=== PATIENT | male | born 1945 | race Caucasian/White ===

== ENCOUNTER 2017-02-17 15:33 | Observation (INO) | payer OTHER, MEDICARE ==
[~2017-02-17] VITALS: Ht 190.5 cm; Wt 108.3 kg
--- NOTE | 2017-02-17 15:40 | Cardiology Progress Note ---
Cardiology Progress Note Date of Service Feb 17, 2017. Cardiology Progress Note Case had been discussed with Samantha ROBLES of our practice by telephone who had seen the patient in routine cardiology follow-up at the [facility] clinic today. Patient presented with finding of atrial fibrillation with rapid ventricular rate between 135 150 beats per minute. An EKG was performed on at 1:41 p.m. at [facility] and was reviewed independently by the undersigned via remote connection revealing atrial fibrillation at 135 beats per minute with nonspecific ST abnormality. The patient is on chronic anticoagulation with Coumadin and his INR today 02/17/2017 as an outpatient was therapeutic at 3.6. He has had therapeutic INR measurements in in December, , December,, in October, as well as September,. PLAN: [facility]. I will see the patient tomorrow morning. I am going to tentatively placed orders to keep the patient NPO after midnight and I am going to consult anesthesia for planned direct current cardioversion on 02/18/2017. Since this is an add on case, we are working to fit the patient into the schedule, and this may be an afternoon case, but either way the patient will need to be NPO for 8 hours, and therefore will be made NPO after midnight.
[2017-02-17] MEDS ORDERED: DILTIAZEM HCL 5 MG/ML 5 ML VIAL IV STA (15:46)
[2017-02-17] MEDS ORDERED: SODIUM CHLORIDE 0.9% 500ML 500 ML IV STA (15:46)
--- NOTE | 2017-02-17 15:52 | EMERGENCY ROOM VISIT NOTE ---
History Report prepared by Terra: Jaciel Jacome Under the Supervision of: Dr. Azar Quinones D.O. First contact with patient: 15:38 Chief Complaint: IRREGULAR HEARTBEAT Stated Complaint: AFIB - REFERRED BY History of Present Illness The patient is a 71 year old male who presents to the Emergency Room with complaints of persistent irregular heart rhythm that started earlier today. The patient has a history of atrial fibrillation, but he is normally in normal sinus rhythm. He takes diltiazem and Coumadin, and he did not miss his diltiazem this morning. The patient was found to be in atrial fibrillation when he had a regular check up today. He denies dizziness, lightheadedness, chest pain, or shortness of breath. 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 The patient has been hospitalized for A-fib with RVR before. He denies any recent illness or nausea, vomiting, and diarrhea. He has been constipated recently. Source of History: patient Onset: today Position: other (heart) Quality: other (irregular rhythm) Timing: other (persistent) Associated Symptoms: No SOB, No chest pain, No diarrhea, No nausea, No vomiting Review of Systems See HPI for pertinent positives & negatives. A total of 10 systems reviewed and were otherwise negative. Past Medical & Surgical Medical Problems: (1) Atrial fibrillation with RVR (2) Constipation (3) Dyslipidemia (4) GERD (gastroesophageal reflux disease) (5) HTN (hypertension) (6) custodial (current) use of anticoagulants (7) PAF (paroxysmal atrial fibrillation) Surgical Problems: (1) H/O hernia repair Family History No pertinent family history Social History Smoking Status: Never Smoker Occupation Status: retired Current/Historical Medications Scheduled Aspirin (Aspirin Ec), 81 MG PO QAM Diltiazem Hcl Ext Rel (Tiazac), 240 MG PO QAM Enalapril (Vasotec), 20 MG PO BID Metoprolol Tartrate (Lopressor), 25 MG PO BID Multiple Vitamins W/ Minerals (Centrum Silver), 1 TAB PO QAM Omeprazole (Prilosec), 20 MG PO DAILY Simvastatin (Zocor), 20 MG PO QAM Warfarin Sod (Jantoven), 7.5 MG PO MoFr Warfarin Sod (Jantoven), 5 MG PO 5XWK Allergies Coded Allergies: Penicillins (Unverified Allergy, Unknown, RASH, 02/17/17) Physical Exam Vital Signs Date Time Temp Pulse Resp B/P Pulse Ox O2 Delivery O2 Flow Rate FiO2 02/17/17 18:19 97 18 133/97 96 Room Air 02/17/17 16:52 88 20 124/84 95 Room Air 02/17/17 15:45 Room Air 02/17/17 15:40 Room Air 02/17/17 15:35 36.7 124 18 162/91 95 Room Air Physical Exam GENERAL: Patient is awake, alert, and in no acute distress. Patient is resting comfortably and showing no signs of anxiety EYES: The conjunctivae are clear. The pupils are round and reactive. EARS, NOSE, MOUTH AND THROAT: The nose is without any evidence of any deformity. Mucous membranes are dry tongue is midline NECK: The neck is nontender and supple. RESPIRATORY: Normal respiratory effort is noted there is no evidence of wheezing rhonchi or rales CARDIOVASCULAR: Heart sounds were tachycardic and irregular, no definite murmur was noted to auscultation. GASTROINTESTINAL: The abdomen is soft. Bowel sounds are present in all quadrants. Abdomen is nontender MUSCULOSKELETAL/EXTREMITIES: There is no evidence of gross deformity full range of motion is noted in the hips and shoulders SKIN: There is no obvious evidence of any rash. There are no petechiae, pallor or cyanosis noted. Pedal edema was noted bilaterally. NEUROLOGIC: Patient is awake alert and oriented x3, Medical Decision & Procedures ER Provider Diagnostic Interpretation: Radiology results as stated below per my review and radiologist interpretation: SINGLE VIEW CHEST CLINICAL HISTORY: Palpitations. FINDINGS: An AP, portable, upright chest radiograph is obtained. No prior studies are available for comparison at the time of dictation. The examination is degraded by portable technique and patient rotation. The heart is enlarged and there is atherosclerotic calcification of the thoracic aorta. The pulmonary vasculature is noncongested. Scattered calcified granulomas are observed. The lungs and pleural spaces are otherwise clear. No pneumothorax is seen. The skeletal structures are osteopenic. The bony thorax is grossly intact. IMPRESSION: Cardiomegaly with no acute cardiopulmonary abnormality. Electronically signed by: Dwayne Stewart M.D. 02/17/2017 3:58 PM Dictated Date/Time: 02/17/2017 3:57 PM Laboratory Results Test 02/17/17 15:45 02/17/17 17:05 Immature Granulocyte % (Auto) 0.2 % White Blood Count 6.25 K/uL (4.8-10.8) Red Blood Count 4.57 M/uL (4.7-6.1) Hemoglobin 15.0 g/dL (14.0-18.0) Hematocrit 43.6 % (42-52) Mean Corpuscular Volume 95.4 fL (80-100) Mean Corpuscular Hemoglobin 32.8 pg (25-34) Mean Corpuscular Hemoglobin Concent 34.4 g/dl (32-36) Platelet Count 175 K/uL (130-400) Mean Platelet Volume 10.7 fL (7.4-10.4) Neutrophils (%) (Auto) 63.6 % Lymphocytes (%) (Auto) 20.5 % Monocytes (%) (Auto) 13.8 % Eosinophils (%) (Auto) 1.4 % Basophils (%) (Auto) 0.5 % Neutrophils # (Auto) 3.98 K/uL (1.4-6.5) Lymphocytes # (Auto) 1.28 K/uL (1.2-3.4) Monocytes # (Auto) 0.86 K/uL (0.11-0.59) Eosinophils # (Auto) 0.09 K/uL (0-0.5) Basophils # (Auto) 0.03 K/uL (0-0.2) Immature Granulocyte # (Auto) 0.01 K/uL (0.00-0.02) Activated Partial Thromboplast Time 37.9 SECONDS (21.0-31.0) Partial Thromboplastin Ratio 1.5 Total Bilirubin 0.5 mg/dl (0.2-1) Direct Bilirubin 0.1 mg/dl (0-0.2) Aspartate Amino Transf (AST/SGOT) 18 U/L (15-37) Alanine Aminotransferase (ALT/SGPT) 21 U/L (12-78) Alkaline Phosphatase 66 U/L (45-117) Total Creatine Kinase 121 U/L (39-308) Creatine Kinase MB 2.0 ng/ml (0.5-3.6) Creatine Kinase MB Ratio 1.7 (0-3.0) Troponin I < 0.015 ng/ml (0-0.045) Total Protein 7.0 gm/dl (6.4-8.2) Albumin 3.9 gm/dl (3.4-5.0) Lipase 163 U/L (73-393) Thyroid Stimulating Hormone (TSH) 2.510 uIu/ml (0.300-4.500) Free Thyroxine 1.21 ng/dl (0.80-1.60) Urine Color YELLOW Urine Appearance CLEAR (CLEAR) Urine pH 5.5 (4.5-7.5) Urine Specific [place] 1.012 (1.000-1.030) Urine Protein NEG (NEG) Urine Glucose (UA) NEG (NEG) Urine Ketones TRACE (NEG) Urine Occult Blood NEG (NEG) Urine Nitrite NEG (NEG) Urine Bilirubin NEG (NEG) Urine Urobilinogen NEG (NEG) Urine Leukocyte Esterase TRACE (NEG) Urine WBC (Auto) 1-5 /hpf (0-5) Urine RBC (Auto) 0-4 /hpf (0-4) Urine Hyaline Casts (Auto) 0 /lpf (0-5) Urine Epithelial Cells (Auto) 5-10 /lpf (0-5) Urine Bacteria (Auto) NEG (NEG) Laboratory results per my review. Medications Administered Medications (Trade) Dose Ordered Sig/Linda Route Start Time Stop Time Status Last Admin Dose Admin Sodium Chloride (Nss 500ml) 500 ml @ 999 mls/hr Q31M STAT IV 02/17/17 15:46 02/17/17 16:16 DC 02/17/17 16:01 999 MLS/HR Diltiazem HCl (Cardizem Inj) 20 mg NOW STAT IV 02/17/17 15:46 02/17/17 15:48 DC 02/17/17 16:00 20 MG ECG Indication: other (h/o A-fib) Rate (beats per minute): 127 Rhythm: atrial fibrillation (with RVR) Findings: ST depression (diffuse), other (no PVC) Comparison ECG Date: no prior available ED Course 1541: The patient was evaluated in room B10. A complete history and physical examination were performed. 1546: Cardizem 20 mg IV, NSS 500 ml @ 999 mls/hr. 1625: The patient's pulse rate has come down. 1715: Discussed the case with Dr. Alejo, [facility] Card[facility]. He is aware. 1720: Updated the patient. 1724: [facility] The patient will be evaluated. Medical Decision Prior records/ancillary studies reviewed. Triage Nursing notes reviewed. Additional history obtained from son. The patient's history was concerning for palpitations. Differential diagnosis: Etiologies such as premature contractions, electrolyte abnormality, cardiac dysrhythmia, thyroid dysfunction, pulmonary embolism, infection, gastrointestinal, as well as others were entertained. The patient is a 71-year-old male who presented to the emergency department for an evaluation of palpitations. The patient was found be in rapid atrial fibrillation. He has a history of paroxysmal atrial fibrillation. He is currently taking medications for rate control as well as anticoagulation. His Coumadin level was found to be therapeutic. 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 The patient was agreeable to this plan. I discussed his case with the on-call [facility] hospital[facility]. They've agreed to evaluate the patient in the emergency department for further management and disposition. The patient was given IV fluids and IV Cardizem in the emergency department. His rate was much better and his symptoms had improved. Consults Time Called: 1710 Consulting Physician: [facility]. Returned Call: [phone]: Discussed the case with [facility]. He is aware. Additional Consults: Time Called: 1710 Consulted Phys[facility] Returned Call: [phone] Additional Comments: 1724: Discussed the case [facility] The patient will be evaluated. Impression Primary Impression: Atrial fibrillation with RVR Additional Impression: Palpitations Scribe Attestation The scribe's documentation has been prepared under my direction and personally reviewed by me in its entirety. I confirm that the note above accurately reflects all work, treatment, procedures, and medical decision making performed by me. Departure Information Dispostion Being Evaluated By Hospitalist Prescriptions Metoprolol Tartrate (LOPRESSOR) 25 Mg Tab 25 MG PO BID for 30 Days, #60 TAB Prov: Andreia Chinchilla MD 02/18/17 Referrals No Doctor, Assigned (PCP) Patient Instructions My [facility] Problem Qualifiers
--- NOTE | 2017-02-17 16:00 | DIAGNOSTIC IMAGING REPORT ---
SINGLE VIEW CHEST CLINICAL HISTORY: Palpitations. FINDINGS: An AP, portable, upright chest radiograph is obtained. No prior studies are available for comparison at the time of dictation. The examination is degraded by portable technique and patient rotation. The heart is enlarged and there is atherosclerotic calcification of the thoracic aorta. The pulmonary vasculature is noncongested. Scattered calcified granulomas are observed. The lungs and pleural spaces are otherwise clear. No pneumothorax is seen. The skeletal structures are osteopenic. The bony thorax is grossly intact. IMPRESSION: Cardiomegaly with no acute cardiopulmonary abnormality. Electronically signed by: Dwayne Stewart M.D. 02/17/2017 3:58 PM Dictated Date/Time: 02/17/2017 3:57 PM
[2017-02-17 16:07] LABS: BASO % 0.5 %; BASO ABS # 0.03 K/uL (0-0.2); COMPLETE YES; EOS % 1.4 %; HEMATOCRIT 43.6 % (42-52); IG% 0.2 %; LYMPH % 20.5 %; LYMPH ABS # 1.28 K/uL (1.2-3.4); MEAN CELL VOLUME 95.4 fL (80-100); MEAN CORPUSCULAR HEMOGLOBIN 32.8 pg (25-34); MEAN CORPUSCULAR HGB CONC 34.4 g/dl (32-36); MEAN PLATELET VOLUME 10.7 fL (7.4-10.4); MONO % 13.8 %; NEUT % 63.6 %; PLATELET COUNT 175 K/uL (130-400); RED BLOOD COUNT 4.57 M/uL (4.7-6.1); WHITE BLOOD COUNT 6.25 K/uL (4.8-10.8)
[2017-02-17 16:24] LABS: INR 3.2 (0.9-1.1); PARTIAL THROMBOPLASTIN RATIO 1.5; PROTHROMBIN TIME (PATIENT) 36.4 SECONDS (9.0-12.0)
[2017-02-17 16:32] LABS: ALT/SGPT 21 U/L (12-78); BLOOD UREA NITROGEN 11 mg/dl (7-18); BUN/CREATININE RATIO 10.8 (10-20); CARBON DIOXIDE 29 mmol/L (21-32); CHLORIDE 108 mmol/L (98-107); CREATININE 0.97 mg/dl (0.60-1.40); GLUCOSE 106 mg/dl (70-99); MAGNESIUM 2.4 mg/dl (1.8-2.4); POTASSIUM 3.8 mmol/L (3.5-5.1); SODIUM 143 mmol/L (136-145)
[2017-02-17 16:39] LABS: CALCIUM 9.2 mg/dl (8.5-10.1)
[2017-02-17] MEDS ORDERED: SIMV20TA2 PO (16:39)
[2017-02-17] MEDS ORDERED: PRLSR20 PO (16:39)
[2017-02-17] MEDS ORDERED: WARF5TAB7 PO ×2 (16:39)
[2017-02-17] MEDS ORDERED: ASPI81TA28 PO (16:39)
[2017-02-17] MEDS ORDERED: DILT-115 PO (16:39)
[2017-02-17] MEDS ORDERED: ENAL10TA88 PO (16:39)
[2017-02-17] MEDS ORDERED: MULTCHW PO (16:39)
[2017-02-17 17:07] LABS: ALKALINE PHOSPHATASE 66 U/L (45-117); AST/SGOT 18 U/L (15-37); CKMB/CK RATIO 1.7 (0-3.0)
[2017-02-17 17:29] LABS: URINE APPEARANCE CLEAR (CLEAR); URINE BILIRUBIN NEG (NEG); URINE COLOR YELLOW; URINE NITRITE NEG (NEG); URINE PH 5.5 (4.5-7.5); URINE SPECIFIC GRAVITY 1.012 (1.000-1.030); UROBILINOGEN NEG (NEG)
[2017-02-17 17:35] LABS: MANUAL MICROSCOPIC REQUIRED? NO; REVIEW REQ? NO
[2017-02-17] MEDS ORDERED: ACETAMINOPHEN 325 MG TAB PO PRN (18:30)
[2017-02-17] MEDS ORDERED: POLYETHYLENE (MIRALAX) 17 GM PACK PO PRN (18:30)
[2017-02-17] MEDS ORDERED: ONDANSETRON INJ 2 MG/ML 2 ML VIAL IV PRN (18:30)
[2017-02-17] MEDS ORDERED: NITROGLYCERIN 0.4 MG SL PER TAB CHARGE SL PRN (18:30)
--- NOTE | 2017-02-17 18:59 | History and Physical ---
History & Physical Date & Time of Service: Feb 17, 2017 at 18:42 Chief Complaint: Afib - Referred By Primary Care Physician: Jakob Ramos M.D. History of Present Illness Source: patient Mr. Ojeda is a 71 year old man with paroxysmal atrial fibrillation on long-term coumadin who presents to the ER today for atrial fibrillation with RVR. Earlier today he went to his Cardiology office for a routine visit, with his last visit in Jul 2016. He was toherwise feeling well and denied chest pain, shortness of breath, fatigue or other complaints. He was found to have a HR in the 140-160s and an EKG confirmed the above rhythm with HR 135. He was driven to the ER by a family member and here an EKG again revealed afib w RVR with a rate of [address] changes. He was given Cardizem 20mg IV which brought his HR down to the 70s. He remained asymptomatic and denies feeling poorly in the past week including no chest pain, trouble breathing, malaise, fevers, chills, intolerance of PO, nausea, vomiting, diarrhea, headache, sore throat, congestion or other cold symptoms, no UTI symptoms, no weight gain or swelling, and no blood per rectum. He reports being able to ambulate well without an assistive device. He lives alone and does well by himself--manages medications well, etc. His son is an ER nurse at this hospital and is present at the bedside today. The plan was discussed with he and the patient and all questions were answered to their satisfaction. Past Medical/Surgical History Medical Problems: (1) Atrial fibrillation with RVR Status: Resolved (2) Constipation Status: Chronic (3) Dyslipidemia Status: Chronic (4) GERD (gastroesophageal reflux disease) Status: Chronic (5) HTN (hypertension) Status: Chronic (6) snf (current) use of anticoagulants Status: Chronic (7) PAF (paroxysmal atrial fibrillation) Status: Chronic Family History No pertinent family history Social History Smoking Status: Former Smoker (pipe) Smokeless Tobacco Use: No Alcohol Use: occasionally Drug Use: none Marital Status: single Housing status: lives alone Occupational Status: retired Immunizations History of Influenza Vaccine: Yes Influenza Vaccine Date: Aug 25, 2016 History of Tetanus Vaccine?: Unknown History of Pneumococcal: Yes Pneumococcal Date: Nov 27, 2015 History of Hepatitis B Vaccine: No Multi-Drug Resistant Organisms History of MDRO: No Allergies Coded Allergies: Penicillins (Unverified Allergy, Unknown, RASH, 02/17/17) Home Medications Scheduled Aspirin (Aspirin Ec), 81 MG PO QAM Diltiazem Hcl Ext Rel (Tiazac), 240 MG PO QAM Enalapril (Vasotec), 20 MG PO BID Multiple Vitamins W/ Minerals (Centrum Silver), 1 TAB PO QAM Omeprazole (Prilosec), 20 MG PO DAILY Simvastatin (Zocor), 20 MG PO QAM Warfarin Sod (Jantoven), 7.5 MG PO MoFr Warfarin Sod (Jantoven), 5 MG PO [id number] Review of Systems All systems were reviewed and negative except as indicated in HPI above. Physical Exam Vital Signs Date Time Temp Pulse Resp B/P Pulse Ox O2 Delivery O2 Flow Rate FiO2 02/17/17 18:19 97 18 133/97 96 Room Air 02/17/17 16:52 88 20 124/84 95 Room Air 02/17/17 15:45 Room Air 02/17/17 15:40 Room Air 02/17/17 15:35 36.7 124 18 162/91 95 Room Air GEN: WNWD, in no acute distress, alert and appropriate HEENT: NC/AT, PERRL, normal sclerae, pharynx non-acute, mucous membranes are moist CARDIO: reg rate, irregular rhythm, S1/2 heard without m/g/r, 2+ radial pulses bilaterally LUNGS: CTA bilaterally, no crackles, rales or wheezes, good diaphragmatic excursion ABD: soft, non-tender, non-distended, no rebound or guarding, +BS EXTREMITY: no LE swelling or edema, extremities are warm and well-perfused NEURO: CN 2-12 grossly intact, sensation intact throughout, no gross focal deficits MUSC: moves all extremities equally, no focal deficits. SKIN: warm and dry Diagnostics Laboratory Results Results Past 24 Hours Test 02/17/17 15:45 02/17/17 17:05 Range/Units White Blood Count 6.25 4.8-10.8 K/uL Red Blood Count 4.57 4.7-6.1 M/uL Hemoglobin 15.0 14.0-18.0 g/dL Hematocrit 43.6 42-52 % Mean Corpuscular Volume 95.4 80-100 fL Mean Corpuscular Hemoglobin 32.8 25-34 pg Mean Corpuscular Hemoglobin Concent 34.4 32-36 g/dl Platelet Count 175 130-400 K/uL Mean Platelet Volume 10.7 7.4-10.4 fL Neutrophils (%) (Auto) 63.6 % Lymphocytes (%) (Auto) 20.5 % Monocytes (%) (Auto) 13.8 % Eosinophils (%) (Auto) 1.4 % Basophils (%) (Auto) 0.5 % Neutrophils # (Auto) 3.98 1.4-6.5 K/uL Lymphocytes # (Auto) 1.28 1.2-3.4 K/uL Monocytes # (Auto) 0.86 0.11-0.59 K/uL Eosinophils # (Auto) 0.09 0-0.5 K/uL Basophils # (Auto) 0.03 0-0.2 K/uL RDW Standard Deviation 47.3 36.4-46.3 fL RDW Coefficient of Variation 13.6 11.5-14.5 % Immature Granulocyte % (Auto) 0.2 % Immature Granulocyte # (Auto) 0.01 0.00-0.02 K/uL Prothrombin Time 36.4 9.0-12.0 SECONDS Prothromb Time International Ratio 3.2 0.9-1.1 Activated Partial Thromboplast Time 37.9 21.0-31.0 SECONDS Partial Thromboplastin Ratio 1.5 Sodium Level 143 136-145 mmol/L Potassium Level 3.8 3.5-5.1 mmol/L Chloride Level 108 98-107 mmol/L Carbon Dioxide Level 29 21-32 mmol/L Anion Gap 6.0 3-11 mmol/L Blood Urea Nitrogen 11 7-18 mg/dl Creatinine 0.97 0.60-1.40 mg/dl Est Creatinine Clear Calc Drug Dose 90.6 ml/min Estimated GFR () 89.4 Estimated GFR (Non- 77.1 BUN/Creatinine Ratio 10.8 10-20 Random Glucose 106 70-99 mg/dl Calcium Level 9.2 8.5-10.1 mg/dl Magnesium Level 2.4 1.8-2.4 mg/dl Total Bilirubin 0.5 0.2-1 mg/dl Direct Bilirubin 0.1 0-0.2 mg/dl Aspartate Amino Transf (AST/SGOT) 18 15-37 U/L Alanine Aminotransferase (ALT/SGPT) 21 12-78 U/L Alkaline Phosphatase 66 45-117 U/L Total Creatine Kinase 121 39-308 U/L Creatine Kinase MB 2.0 0.5-3.6 ng/ml Creatine Kinase MB Ratio 1.7 0-3.0 Troponin I < 0.015 0-0.045 ng/ml Total Protein 7.0 6.4-8.2 gm/dl Albumin 3.9 3.4-5.0 gm/dl Lipase 163 73-393 U/L Thyroid Stimulating Hormone (TSH) 2.510 0.300-4.500 uIu/ml Free Thyroxine 1.21 0.80-1.60 ng/dl Urine Color YELLOW Urine Appearance CLEAR CLEAR Urine pH 5.5 4.5-7.5 Urine Specific [place] 1.012 1.000-1.030 Urine Protein NEG NEG Urine Glucose (UA) NEG NEG Urine Ketones TRACE NEG Urine Occult Blood NEG NEG Urine Nitrite NEG NEG Urine Bilirubin NEG NEG Urine Urobilinogen NEG NEG Urine Leukocyte Esterase TRACE NEG Urine WBC (Auto) 1-5 0-5 /hpf Urine RBC (Auto) 0-4 0-4 /hpf Urine Hyaline Casts (Auto) 0 0-5 /lpf Urine Epithelial Cells (Auto) 5-10 0-5 /lpf Urine Bacteria (Auto) NEG NEG Diagnostic Radiology CLINICAL HISTORY: Palpitations. FINDINGS: An AP, portable, upright chest radiograph is obtained. No prior studies are available for comparison at the time of dictation. The examination is degraded by portable technique and patient rotation. The heart is enlarged and there is atherosclerotic calcification of the thoracic aorta. The pulmonary vasculature is noncongested. Scattered calcified granulomas are observed. The lungs and pleural spaces are otherwise clear. No pneumothorax is seen. The skeletal structures are osteopenic. The bony thorax is grossly intact. IMPRESSION: Cardiomegaly with no acute cardiopulmonary abnormality. EKG Atrial fibrillation with RVR 127, no ST changes. Impression Assessment and Plan 71 yo M presents with asymptomatic atrial fibrillation with RVR 1. Atrial fibrillation with RVR-no clear etiology at this time. TSH is WNL, trop normal, EKG non-ischemic and no h/o CAD, no hypoxia or risk factors for PE and is therapeutic on coumadin, no recent infectious symptoms, electrolytes within normal limits. Rate was controlled with diltiazem push. Cardiology plan is for DCCV in am. NPO p MN. Trending enzymes to ensure no ACS, however, patient is completely asymptomatic. Monitor on tele overnight. 2. HTN-controlled, cont home meds includinglisinopril BID and Cardizen PO 3. HLP-cont Zocor 4. GERD-cont PPI DVT proph-therapeutic on coumadin Dispo-to telemetry floor Full Code DO [facility] Hospitalist Level of Care Telemetry Resuscitation Status FULL RESUSCITATION VTE Prophylaxis VTE Risk Assessment Done? Y/N: Yes Risk Level: Moderate Given or contraindicated: Warfarin (Coumadin)
[2017-02-17 19:57] VITALS: BP 145/97; PULSE 84; TEMP 36.5; O2SAT 98; Ht 190.5 cm; Wt 108.3 kg
[2017-02-17] MEDS ORDERED: IV FLUIDS COMPLETED PRN (20:00)
[2017-02-17] MEDS ORDERED: PNEUMOCOCCAL ADMINISTRATION CHARGE ONE (20:30)
[2017-02-17] MEDS ORDERED: PNEUMOCOCCAL POLYSACCHARIDES 25 MCG/0.5 ML VIAL/SYR IM. ONE (20:30)
[2017-02-17] MEDS: ENALAPRIL MALEATE 10 MG TAB PO SCH (20:51)
[2017-02-17 21:51] VITALS: BP 122/92; PULSE 86; TEMP 36.8; O2SAT 96
[2017-02-17 23:13] VITALS: BP 141/83; PULSE 87; TEMP 36.3; O2SAT 98
[2017-02-17 23:59] VITALS: O2SAT 98
[2017-02-18] VITALS (8 sets, daily range): BP systolic 107–149; BP diastolic 79–93; PULSE 69–120; TEMP 36.4–37; O2SAT 93–100
[2017-02-18 06:04] LABS: HEMATOCRIT 40.6 % (42-52); MEAN CELL VOLUME 95.8 fL (80-100); MEAN CORPUSCULAR HEMOGLOBIN 31.8 pg (25-34); MEAN CORPUSCULAR HGB CONC 33.3 g/dl (32-36); MEAN PLATELET VOLUME 10.8 fL (7.4-10.4); PLATELET COUNT 166 K/uL (130-400); RED BLOOD COUNT 4.24 M/uL (4.7-6.1); WHITE BLOOD COUNT 4.77 K/uL (4.8-10.8)
[2017-02-18 06:10] LABS: INR 2.8 (0.9-1.1)
[2017-02-18 06:39] LABS: BUN/CREATININE RATIO 10.7 (10-20); CALCIUM 8.5 mg/dl (8.5-10.1); CREATININE 0.76 mg/dl (0.60-1.40); MAGNESIUM 2.4 mg/dl (1.8-2.4); POTASSIUM 3.9 mmol/L (3.5-5.1)
[2017-02-18 06:42] LABS: CHOLESTEROL/HDL RATIO 2.5
[2017-02-18] MEDS: ENALAPRIL MALEATE 10 MG TAB PO SCH (08:46)
--- NOTE | 2017-02-18 08:53 | Cardiology Consultation ---
Cardiology Consultation Date of Consultation: Feb 18, 2017 History of Present Illness Robert Ojeda is a 71 year old male seen in cardiology consult per the request of Dr Martins for managment of atrial fibrillation with rapid ventricular rate. The patient's primary information security officer is Dr. Alejo of our practice. The patient has a past history of paroxysmal atrial fibrillation for which she is on oral diltiazem and Coumadin as an outpatient. His only definite episode of atrial fibrillation took place in 2012 when he was hospitalized at [facility]. Based on what the patient recollects and on his outpatient chart and appears seated spontaneous he converted back to sinus rhythm on AV bethel blockers at that time and did not meet direct-current cardioversion. He is been maintained on Coumadin for anticoagulation and his INR has been stable with monthly lab work performed for the last several months revealing INRs that are above the goal of 2. Yesterday he presented as an outpatient for routine cardiology follow-up and he is noted to be tachycardic on vital signs. He had no definite subjective symptoms however his heart rate was between 140 and 160 on physical exam and EKG confirmed the presence of atrial fibrillation with rapid ventricular rate of 135 bpm. The patient was subsequently referred to the emergency department. He received 20 mg of IV diltiazem which transiently improved his ventricular rate, however it is noted that overnight last night with minimal activity such as walking and going to the bathroom his heart rates had increased to the 160- 170 beat per minute range. I saw and examined the patient after his transthoracic echocardiogram in the cardial pulmonary unit and he was in no acute distress. He remains in atrial fibrillation with only mild elevation in the ventricular rate at rest. His international normalized ratio was 3.6 as an outpatient yesterday and is still within the therapeutic range today. History PAST MEDICAL HISTORY: 1. Persistent atrial fibrillation 2. GERD 3. Hypertension 4. Dyslipidemia PAST SURGICAL HISTORY: 1. Colonoscopy performed 2013 2. Tonsillectomy as a child 3. Inguinal hernia repair as a child FAMILY HISTORY: His parents both in their 80s, no definite history of ischemic heart disease known. SOCIAL HISTORY: He is . 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 He is . Review Of Systems See above for pertinent positives & negatives. A total of 10 systems reviewed and were otherwise negative. Allergies Coded Allergies: Penicillins (Unverified Allergy, Unknown, RASH, 02/17/17) Medications Reported Home Medications Medications Dose Route/Sig Max Daily Dose Days Date Category Dose Instructions Jantoven (Warfarin Sodium) 5 Mg Tab 5 Mg PO 5XWK 02/17/17 Reported Take 5mg every , , Th, Sa, Lowery Jantoven (Warfarin Sodium) 5 Mg Tab 7.5 Mg PO MOFR 02/17/17 Reported Take 7.5mg every Mon and Fri Zocor (Simvastatin) 20 Mg Tab 20 Mg PO QAM 02/17/17 Reported Tiazac (Diltiazem HCl) 240 Mg Capcr 240 Mg PO QAM 02/17/17 Reported Vasotec (Enalapril Maleate) 10 Mg Tab 20 Mg PO BID 02/17/17 Reported Aspirin Ec (Aspirin) 81 Mg Tab 81 Mg PO QAM 02/17/17 Reported Centrum Silver (Multiple Vitamins W/ Minerals) 1 Chw Chw 1 Tab PO QAM 02/17/17 Reported Prilosec (Omeprazole) 20 Mg Capcr 20 Mg PO DAILY 02/17/17 Reported Physical Exam Vital Signs (Last 8hrs): Last 8 Hrs Date Time Temp Pulse Resp B/P Pulse Ox O2 Delivery O2 Flow Rate FiO2 02/18/17 07:39 37.0 104 20 149/81 93 Room Air 02/18/17 04:00 Room Air 02/18/17 03:57 36.8 86 16 122/92 96 Room Air 02/18/17 03:35 74 20 135/85 97 Room Air General Appearance: Alert and Oriented x3. NAD. Head: Normocephalic Atraumatic. Eyes: PERRLA, EOMI, conjunctiva and sclera clear Neck: Supple. No carotid bruits noted. No JVD. No HJD. Respiratory: Breath sounds clear to auscultation bilaterally. No w/r/r. Cardiovascular: Irregular rhythm, no murmurs Abdomen: Normal bowel sounds, soft nontender. no abdominal bruits. Extremities: No edema, no clubbing or cyanosis. distal pulses 2/4 bilaterally. Neuro: No focal deficits. Psychiatric: Normal affect. Data Last Resulted 02/18/17 05:16 Last Resulted 02/18/17 05:16 Past 24 Hours Test 02/17/17 15:45 02/18/17 05:16 Range/Units Creatine Kinase MB 2.0 0.5-3.6 ng/ml Creatine Kinase MB Ratio 1.7 0-3.0 Prothromb Time International Ratio 3.2 H 2.8 H 0.9-1.1 Prothrombin Time 36.4 H 31.0 H 9.0-12.0 SECONDS Total Creatine Kinase 121 39-308 U/L Troponin I < 0.015 0-0.045 ng/ml EKG performed this morning 02/18/17 and reviewed independently revealed atrial fibrillation at 89 bpm with no significant ST changes. Compared to the day before, the rate is much better controlled. Telemetry reviewed: Atrial fibrillation noted, rate was rapid at times, no bradycardia Assessment & Plan Impression: 71-year-old male 1. Atrial fibrillation with rapid ventricular rate 2. Hypertension, relatively well controlled 3. History dyslipidemia Discussion/recommendations: The patient states that he has no subjective symptoms, I'm very concerned that if his tachycardia persists, he will develop a tachycardia induced cardiomyopathy. His difficult to determine the chronicity of atrial fibrillation given his lack of symptoms. However he has been compliant with Coumadin without missing any recent doses and his international normalized ratios have been within the therapeutic range for several months dating back some therefore he should be protected against stroke. I reviewed his outpatient record. His single echocardiogram on file dates back to [facility] in 2012 at which time normal LVEF was described with moderate left atrial enlargement. A repeat echocardiogram has been performed at [facility], this is just been completed and will be reviewed. Sinuses echocardiographic findings are stable, plan to proceed with direct-current cardioversion this afternoon and the patient was agreeable to this. Karis Dillard DO
[2017-02-18] MEDS ORDERED: SIMVASTATIN 20 MG TAB PO SCH (09:00)
[2017-02-18] MEDS ORDERED: ASPIRIN 81 MG ECTAB PO SCH (09:00)
[2017-02-18] MEDS ORDERED: PANTOprazole SOD 40 MG TAB PO SCH (09:00)
[2017-02-18] MEDS ORDERED: DILTIAZEM HCL 120 MG EXT REL CAP PO SCH (09:00)
--- NOTE | 2017-02-18 09:26 | ECHOCARDIOGRAM REPORT ---
*NOTICE TO RECEIVING [employer] AGENCY This information is strictly Confidential and protected under [place] law. [place] law prohibits you from making any further disclosure of this information unless further disclosure is expressly permitted by the written consent of the person to whom it pertains or is authorized by law. A general authorization for the release of medical or other information is not sufficient for this purpose. Hospital accepts no responsibility if the information is made available to any other person, INCLUDING THE PATIENT. Interpretation Summary * Name: WINSOME APONTE Study Date: 02/18/2017 07:41 AM BP: 149/81 mmHg * Patient Location: C.2T\S\S229\S\2 HR: 104 * : 1945 (M/d/yyyy) Gender: Male Height: 75 in * Age: 71 yrs Ethnicity: CA Weight: 241 lb * Ordering Physician: Collins Dillard * Referring Physician: Samantha Suarez PA-C * Performed By: Minda Badillo RDCS * * Reason For Study: Atrial fibrillation * BSA: 2.4 m2 * -- Conclusions -- * Atrial fibrillation with mildly elevated ventricular rate is present on the echocardiogram study. * The left ventricular wall motion is normal. * The LV Ejection Fraction = 55-60%. * The left atrium is moderately dilated. * There is moderate mitral annular calcification. * Aortic valve sclerosis moderate, without significant aortic valvular stenosis. * Trace aortic regurgitation. * There is mild tricuspid regurgitation. Procedure Details * A complete two-dimensional transthoracic echocardiogram was performed (2D, M-mode, Doppler and color flow Doppler). Left Ventricle * The left ventricle is normal in size. * There is normal left ventricular wall thickness. * The basal septum is thickened and angulated consistent with sigmoid septum. * Left ventricular systolic function is normal. * Ejection Fraction = 55-60%. * The left ventricular wall motion is normal. Right Ventricle * The right ventricle is normal in size and function. Atria * The left atrium is moderately dilated. * Right atrial size is normal. * There is no evidence of atrial septal defect, but resolution does not allow assessment for a patent foramen ovale. Mitral Valve * There is moderate mitral annular calcification. * There is no mitral valve stenosis. * Significant mitral regurgitation is absent. Tricuspid Valve * The tricuspid valve is normal. * There is no tricuspid stenosis. * There is mild tricuspid regurgitation. * Doppler findings do not suggest pulmonary hypertension. Aortic Valve * The aortic valve is trileaflet. * Aortic valve sclerosis moderate, without significant aortic valvular stenosis. * Aortic stenosis is absent. * Trace aortic regurgitation. Pulmonic Valve * The pulmonary valve is not well seen, but the Doppler examination is normal without significant regurgitation or stenosis. Great Vessels * The aortic root and proximal ascending aorta are normal sized. Pericardium/Pleural * There is no pericardial effusion. Great Vessels * Normal inferior vena cava diameter and respiratory variation suggests normal central venous pressure. MMode 2D Measurements and Calculations Ao root diam 3.1 cm Ao root area 7.6 cm\S\2 ACS 0.92 cm asc Aorta Diam 3.4 cm LVOT diam 2.0 cm LVOT area 3.1 cm\S\2 Doppler Measurements and Calculations MV E max kings 105.6 cm/sec MV dec time 0.24 sec Ao V2 max 154.7 cm/sec Ao max PG 9.6 mmHg Ao max PG (full) 6.2 mmHg FEDERICO(V,A) 1.8 cm\S\2 FEDERICO(V,D) 1.8 cm\S\2 LV V1 max PG 3.4 mmHg LV V1 max 92.3 cm/sec PA V2 max 80.1 cm/sec PA max PG 2.6 mmHg PA acc slope 326.1 cm/sec\S\2 PA acc time 0.16 sec PI max kings 171.0 cm/sec PI max PG 11.7 mmHg PI dec slope 235.2 cm/sec\S\2 PI P1/2t 213.0 msec TR max kings 187.3 cm/sec PA pr(Accel) 6.1 mmHg
[2017-02-18] MEDS ORDERED: PROPOFOL IV EMULSION 10 MG/ML 20 ML VIAL IV ONE (09:41)
--- NOTE | 2017-02-18 10:04 | Cardiology Procedure Brief Nt ---
Preliminary Cardiology Note Procedure Date Feb 18, 2017. Pre-Procedure Diagnosis atrial fibrillation, RVR Post-Procedure Diagnosis successful conversion to SR Procedure(s) Performed DCCV, sedation provided by anesthesia Yield Improvement Engineer Karis Dillard DO Retail Merchandising Specialist(s) none Estimated Blood Loss none Preliminary Findings Converted to SR with one dose of 200 J of biphasic energy. Recommendations Continue diltiazem and coumadin. Specimens none Anesthesia Propofol 70 mg Complication(s) None Disposition PCU
[2017-02-18] MEDS ORDERED: METOPROLOL TARTRATE 25 MG TAB PO ONE (10:08)
--- NOTE | 2017-02-18 10:31 | CARDIOVERSION ---
DATE OF OPERATION: 02/18/2017 PROCEDURE DATE: 02/18/2017. PREPROCEDURE DIAGNOSIS: Atrial fibrillation with rapid ventricular rate. POSTOPERATIVE DIAGNOSIS: Successful conversion to sinus rhythm. PROCEDURE PERFORMED: Synchronized direct current cardioversion, sedation provided by the anesthesia team. HIGH SCHOOL VICE PRINCIPAL: Dr. Collins Dillard DO. ASSISTANTS: None. PRELIMINARY FINDINGS: After informed consent was obtained and time out was performed the patient was sedated with the assistance of anesthesia receiving a total of 70 mg of propofol in divided doses. The patient then underwent synchronized cardioversion receiving 200 joules of biphasic energy x1 dose with successful conversion from atrial fibrillation at 120 beats per minute to sinus rhythm at 70 beats per minute. Post procedure EKG confirmed sinus rhythm with normal ST segments. RECOMMENDATIONS: Continue oral Diltiazem and Coumadin. COMPLICATIONS: None. DISPOSITION: Transfer to PCU for ongoing care and patient will be reassessed later today. I attest to the content of the Intraoperative Record and any orders documented therein. Any exceptions are noted below. MTDD
[2017-02-18] MEDS ORDERED: LPR25 PO (11:30)
--- NOTE | 2017-02-18 11:32 | Discharge Instructions ---
Discharge Instructions Date of Service Feb 18, 2017. Admission Reason for Admission: Afib - Referred By Discharge Discharge Diagnosis / Problem: Atrial fibrillation status post cardioversion Discharge Goals Goal(s): Improve disease control, Therapeutic intervention Activity Recommendations Activity Limitations: resume your previous activity . Instructions / Follow-Up Instructions / Follow-Up Please follow up with Cardiology Samantha Suarez on February 25 at 2:45pm. Metoprolol is a new medication started for heart rate control. Please start this prescription this evening as you received a dose this morning in the hospital. Current Hospital Diet Patient's current hospital diet: AHA Diet (Heart Healthy) Discharge Diet Recommended Diet: AHA Diet (Heart Healthy) Pending Studies Studies pending at discharge: no Laboratory Results Lipid Panel Test 02/18/17 05:16 Range/Units Triglycerides Level 63 0-150 mg/dl Cholesterol Level 125 0-200 mg/dl HDL Cholesterol 50 mg/dl Cholesterol/HDL Ratio 2.5 LDL Cholesterol, Calculated 62 mg/dl Medical Emergencies . Who to Call and When: Medical Emergencies: If at any time you feel your situation is an emergency, please call 911 immediately. . Non-Emergent Contact Non-Emergency issues call your: Primary Care Provider . . "Provider Documentation" section prepared by Andreia Waller. . VTE Core Measure Inpt VTE Proph given/why not?: Warfarin (Coumadin)
--- NOTE | 2017-02-18 11:34 | Cardiology Progress Note ---
Cardiology Progress Note Date of Service Feb 18, 2017. Cardiology Progress Note The patient was reassessed post direct-current cardioversion. He remains in sinus rhythm. He has received his a.m. dose of diltiazem 240 mg by mouth today , and has just received his first dose of metoprolol tartrate 25 mg. Plan: Stable for discharge later this afternoon after he completes his lunch. Continue home Coumadin routine. With anticoagulation chronic follow-up. Continue chronic dose of diltiazem CD 240 mg daily. At metoprolol tartrate 25 mg twice a day. Outpatient follow-up with Dr. Alejo in 2-4 weeks. Karis Dillard DO
--- NOTE | 2017-02-18 12:33 | Anesthesiology Progress Note ---
Anesthesia Post Op Note Date & Time Feb 18, 2017 at 12:32 Vital Signs Pain Intensity: 0 Vital Signs Past 12 Hours Date Time Temp Pulse Resp B/P Pulse Ox O2 Delivery O2 Flow Rate FiO2 02/18/17 11:15 69 131/87 02/18/17 10:45 80 141/79 02/18/17 10:30 36.4 77 16 142/93 99 Room Air 4.0 78 02/18/17 10:15 78 16 131/82 99 Room Air 02/18/17 10:10 88 16 127/84 99 Room Air 02/18/17 10:05 79 16 127/84 99 Room Air 02/18/17 10:00 80 16 122/80 99 Room Air 02/18/17 09:55 82 16 117/76 99 Room Air 02/18/17 09:52 81 16 107/81 96 Nasal Cannula 4 02/18/17 09:50 120 16 126/79 100 Nasal Cannula 6 02/18/17 08:00 Room Air 02/18/17 07:39 37.0 104 20 149/81 93 Room Air 02/18/17 04:00 Room Air 02/18/17 03:57 36.8 86 16 122/92 96 Room Air 02/18/17 03:35 74 20 135/85 97 Room Air Notes Mental Status: alert / awake / arousable, participated in evaluation Pt Amnestic to Procedure: Yes Nausea / Vomiting: adequately controlled Pain: adequately controlled Airway Patency, RR, SpO2: stable & adequate BP & HR: stable & adequate Hydration State: stable & adequate Anesthetic Complications: no major complications apparent
[2017-02-18] MEDS ORDERED: WARFARIN SOD 7.5 MG TAB PO SCH (16:00)
--- NOTE | 2017-02-18 17:11 | Discharge Summary ---
Discharge Summary Date of Service Feb 18, 2017. Discharge Summary Admission Date: Feb 17, 2017 at 18:34 Discharge Date: Feb 18, 2017 Discharge Disposition: Home Principal Diagnosis: Atrial fibrillation s/p cardioversion Procedures: Cardioversion Consultations: Cardiology Medication Reconciliation New Medications: Metoprolol Tartrate (Lopressor) 25 Mg Tab 25 MG PO BID for 30 Days, #60 TAB Continued Medications: Aspirin (Aspirin Ec) 81 Mg Tab 81 MG PO QAM Diltiazem Hcl Ext Rel (Tiazac) 240 Mg Capcr 240 MG PO QAM, CAP Enalapril (Vasotec) 10 Mg Tab 20 MG PO BID, TAB Multiple Vitamins W/ Minerals (Centrum Silver) 1 Chw Chw 1 TAB PO QAM Omeprazole (Prilosec) 20 Mg Capcr 20 MG PO DAILY, CAP Simvastatin (Zocor) 20 Mg Tab 20 MG PO QAM, TAB Warfarin Sod (Jantoven) 5 Mg Tab 7.5 MG PO MoFr, TAB Take 7.5mg every Mon and Fri Warfarin Sod (Jantoven) 5 Mg Tab 5 MG PO 5XWK, TAB Take 5mg every , , , Sa, Lowery Admission Information HPI (per Admitting provider): Mr. Ojeda is a 71 year old man with paroxysmal atrial fibrillation on long-term coumadin who presents to the ER today for atrial fibrillation with RVR. Earlier today he went to his Cardiology office for a routine visit, with his last visit in Jul 2016. He was toherwise feeling well and denied chest pain, shortness of breath, fatigue or other complaints. He was found to have a HR in the 140-160s and an EKG confirmed the above rhythm with HR 135. He was driven to the ER by a family member and here an EKG again revealed afib w RVR with a rate of [address] changes. He was given Cardizem 20mg IV which brought his HR down to the 70s. He remained asymptomatic and denies feeling poorly in the past week including no chest pain, trouble breathing, malaise, fevers, chills, intolerance of PO, nausea, vomiting, diarrhea, headache, sore throat, congestion or other cold symptoms, no UTI symptoms, no weight gain or swelling, and no blood per rectum. He reports being able to ambulate well without an assistive device. He lives alone and does well by himself--manages medications well, etc. His son is an ER nurse at this hospital and is present at the bedside today. The plan was discussed with he and the patient and all questions were answered to their satisfaction. Physical Exam (per Admitting): GEN: WNWD, in no acute distress, alert and appropriate HEENT: NC/AT, PERRL, normal sclerae, pharynx non-acute, mucous membranes are moist CARDIO: reg rate, irregular rhythm, S1/2 heard without m/g/r, 2+ radial pulses bilaterally LUNGS: CTA bilaterally, no crackles, rales or wheezes, good diaphragmatic excursion ABD: soft, non-tender, non-distended, no rebound or guarding, +BS EXTREMITY: no LE swelling or edema, extremities are warm and well-perfused NEURO: CN 2-12 grossly intact, sensation intact throughout, no gross focal deficits MUSC: moves all extremities equally, no focal deficits. SKIN: warm and dry Hospital Course Patient was admitted with atrial fibrillation with planned cardioversion. Cardiology was consulted. Patient underwent successful cardioversion. Patient was continued on his home medications, with the addition of metoprolol. Patient deemed stable for discharge with Cardiology follow up. PE on discharge: General- awake; alert; NAD Eyes- EOMI; no scleral icterus Neck- no stridor; trachea midline Lungs- CTA bilaterally; no wheezes/crackles Heart- RRR; no m/r/g Abdomen- soft; NTND; nBS Back- no gross abnormalities Extremities- no c/c/e; no deformity Neuro- no focal deficits Skin- no appreciable rash or bruise . Total time spent on discharge = This includes examination of the patient, discharge planning, medication reconciliation, and communication with other providers. Discharge Instructions Discharge Instructions Date of Service Feb 18, 2017. Admission Reason for Admission: Afib - Referred By Discharge Discharge Diagnosis / Problem: Atrial fibrillation status post cardioversion Discharge Goals Goal(s): Improve disease control, Therapeutic intervention Activity Recommendations Activity Limitations: resume your previous activity . Instructions / Follow-Up Instructions / Follow-Up Please follow up with Cardiology Samantha Suarez on February 25 at 2:45pm. Metoprolol is a new medication started for heart rate control. Please start this prescription this evening as you received a dose this morning in the hospital. Current Hospital Diet Patient's current hospital diet: AHA Diet (Heart Healthy) Discharge Diet Recommended Diet: AHA Diet (Heart Healthy) Pending Studies Studies pending at discharge: no Laboratory Results Lipid Panel Test 02/18/17 05:16 Range/Units Triglycerides Level 63 0-150 mg/dl Cholesterol Level 125 0-200 mg/dl HDL Cholesterol 50 mg/dl Cholesterol/HDL Ratio 2.5 LDL Cholesterol, Calculated 62 mg/dl Medical Emergencies . Who to Call and When: Medical Emergencies: If at any time you feel your situation is an emergency, please call 911 immediately. . Non-Emergent Contact Non-Emergency issues call your: Primary Care Provider . . "Provider Documentation" section prepared by Andreia Waller. . VTE Core Measure Inpt VTE Proph given/why not?: Warfarin (Coumadin) Additional Copies To Samantha Suarez PA-C
[2017-02-18] MEDS ORDERED: METOPROLOL TARTRATE 25 MG TAB PO SCH (21:00)
[2017-02-19] MEDS ORDERED: WARFARIN SOD 5 MG TAB PO SCH (16:00)
== END 2017-02-18 12:10 | disposition home or self-care (01) ==
LOC: ENRESERVTM → ENRESERVDT → C.EDB 15:34 → C.2T 18:34
PROVIDERS: ADMIT Hospitalist; ATTEND Internal Medicine
DX: I48.91 Unspecified atrial fibrillation (principal); I10 Essential (primary) hypertension; E78.5 Hyperlipidemia, unspecified; K21.9 Gastro-esophageal reflux disease without esophagitis; Z79.82 Long term (current) use of aspirin; Z79.01 Long term (current) use of anticoagulants; Z87.891 Personal history of nicotine dependence; Z88.0 Allergy status to penicillin; Z90.89 Acquired absence of other organs; Z98.890 Other specified postprocedural states

== ENCOUNTER 2017-12-05 20:23 | Observation (INO) | payer OTHER, MEDICARE ==
[~2017-12-05] VITALS: Ht 190.5 cm; Wt 106.2 kg
[~2017-12-05 20:23] MED LIST: ASPI81TA28 PO; DILT-115 PO; ENAL10TA88 PO; LPR25 PO; MULTCHW PO; PRLSR20 PO; SIMV20TA2 PO; WARF5TAB7 PO
[2017-12-05] MEDS ORDERED: SODIUM CHLORIDE 0.9% 1000ML 500 ML IV ONE (21:08)
[2017-12-05 21:23] LABS: HEMATOCRIT 45.3 % (42-52); HEMOGLOBIN 15.6 g/dL (14.0-18.0); MEAN CELL VOLUME 97.8 fL (80-100); MEAN CORPUSCULAR HEMOGLOBIN 33.7 pg (25-34); MEAN CORPUSCULAR HGB CONC 34.4 g/dl (32-36); MEAN PLATELET VOLUME 11.3 fL (7.4-10.4); PLATELET COUNT 181 K/uL (130-400); RED CELL DISTRIBUTION WIDTH CV 13.9 % (11.5-14.5); RED CELL DISTRIBUTION WIDTH SD 49.6 fL (36.4-46.3); WHITE BLOOD COUNT 7.48 K/uL (4.8-10.8)
[2017-12-05 21:42] LABS: BLOOD UREA NITROGEN 16 mg/dl (7-18); CALCIUM 9.1 mg/dl (8.5-10.1); CARBON DIOXIDE 27 mmol/L (21-32); CREATININE 1.14 mg/dl (0.60-1.40); GLUCOSE 144 mg/dl (70-99); POTASSIUM 3.8 mmol/L (3.5-5.1); SODIUM 138 mmol/L (136-145)
[2017-12-05] MEDS ORDERED: KETOROLAC TROMETHAMINE 30 MG/ML VIAL IV STA (22:42)
[2017-12-05] MEDS ORDERED: LEVOFLOXACIN 250 MG TAB PO STA (23:44)
[2017-12-05] MEDS ORDERED: CEFTRIAXONE SOD INJ 1 GM ADDVIAL IV STA (23:44)
[2017-12-05 23:47] LABS: INR 1.9 (0.9-1.1)
[2017-12-06] VITALS (8 sets, daily range): BP systolic 124–186; BP diastolic 66–92; PULSE 62–72; TEMP 36.6–37.1; O2SAT 94–97; Ht 190.5 cm; Wt 106.2 kg
[2017-12-06] MEDS ORDERED: METO-720 PO (00:48)
[2017-12-06] MEDS ORDERED: CRD200 PO (00:50)
[2017-12-06] MEDS ORDERED: PRLSR20 PO (00:51)
[2017-12-06] MEDS ORDERED: TRAMADOL HCL 50 MG TAB PO PRN (01:45)
[2017-12-06] MEDS ORDERED: PROCHLORPERAZINE INJ 5 MG in SYRINGE 4 ML IV PRN (01:45)
[2017-12-06] MEDS ORDERED: ACETAMINOPHEN 325 MG TAB PO PRN (01:45)
[2017-12-06] MEDS ORDERED: DOCUSATE SODIUM 100 MG CAP PO ONE (01:52)
[2017-12-06 02:08] LABS: ALBUMIN 3.8 gm/dl (3.4-5.0); ALKALINE PHOSPHATASE 88 U/L (45-117); ALT/SGPT 30 U/L (12-78); AST/SGOT 28 U/L (15-37); TOTAL PROTEIN 7.8 gm/dl (6.4-8.2)
[2017-12-06] MEDS ORDERED: NSS + 20MEQ KCL 1000ML 1,000 ML IV ONE (02:15)
[2017-12-06] MEDS ORDERED: PATIENT'S HEIGHT AND/OR WEIGHT NEEDED SCH (02:15)
--- NOTE | 2017-12-06 02:59 | EMERGENCY ROOM VISIT NOTE ---
History Report prepared by Terra: Estiven Acuna Under the Supervision of: Dr. Vimal Neville D.O. First contact with patient: 22:33 Chief Complaint: HEMATURIA Stated Complaint: ABD PAIN Nursing Triage Summary: Patient with lower abdominal pain and Hematuria starting this afternoon. patient states urine continues to leak out , white underwear had blood tinged urine on them. History of Present Illness The patient is a 72 year old male who presents to the Emergency Room with complaints of stabbing kidney pain that began 12 hours ago. Per the son, the patient was in a car for 5 hours and was dribbling out urine without completely voiding the entire day. He states the patient has stabbing pain in his lower back, lower abdominal pain, and groin pain that is rated as 9/10. He denies nausea. The patient's son states that there is blood in the urine. The patient has a history of Afib and is currently taking Warfarin. The patient denies a history of kidney stones. Source of History: patient, family Onset: prior to arrival Position: back Symptom Intensity: severity rated as 9/10 Quality: stabbing Timing: constant Associated Symptoms: + abdominal pain, + back pain, + urinary symptoms ( Dribbling urine and hematuria.), No nausea Note: The patient reports groin pain. Review of Systems See HPI for pertinent positives & negatives. A total of 10 systems reviewed and were otherwise negative. 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 (8) PAF (paroxysmal atrial fibrillation) Surgical Problems: (1) H/O hernia repair (2) Hx of hernia repair Family History No pertinent family history Social History Smoking Status: Never Smoker Drug Use: none Marital Status: single Occupation Status: retired Current/Historical Medications Scheduled Amiodarone HCl (Amiodarone HCl), 200 MG PO DAILY Aspirin (Aspirin Ec), 81 MG PO QAM Enalapril (Vasotec), 20 MG PO BID Metoprolol Tartrate (Metoprolol Tartrate), 3,705 MG PO BID Multiple Vitamins W/ Minerals (Centrum Silver), 1 TAB PO QAM Omeprazole (Prilosec), 20 MG PO DAILY Simvastatin (Zocor), 20 MG PO QAM Warfarin Sod (Jantoven), 7.5 MG PO MoFr Warfarin Sod (Jantoven), 5 MG PO 5XWK Allergies Coded Allergies: Penicillins (Unverified Allergy, Unknown, RASH, 12/06/17) Physical Exam Vital Signs Date Time Temp Pulse Resp B/P (MAP) Pulse Ox O2 Delivery O2 Flow Rate FiO2 12/05/17 23:24 66 16 171/86 95 Room Air 12/05/17 22:26 67 18 176/89 94 Room Air 12/05/17 21:56 63 18 165/88 94 Room Air 12/05/17 21:15 94 Room Air 12/05/17 21:01 63 12/05/17 20:40 36.4 70 18 199/85 97 Room Air Physical Exam CONSTITUTIONAL/VITAL SIGNS: Reviewed / noted above. GENERAL: Non-toxic in appearance. INTEGUMENTARY: Warm, dry, and Effie. HEAD: Normocephalic. EYES: without scleral icterus or trauma. ENT/OROPHARYNX: clear and moist. LYMPHADENOPATHY/NECK: Is supple without lymphadenopathy or meningismus. RESPIRATORY: Lungs clear and equal. CARDIOVASCULAR: Regular rate and rhythm. GI/ABDOMEN: Soft and nontender. No organomegaly or pulsatile mass. No rebound or guarding. Normal bowel sounds. EXTREMITIES: Warm and well perfused. BACK: No CVA tenderness. NEUROLOGICAL: Intact without focal deficits. PSYCHIATRIC: normal affect. MUSCULOSKELETAL: Normally developed with good muscle tone. GENITOURINARY: No abnormalities noted and no hernias Medical Decision & Procedures ER Provider Diagnostic Interpretation: Radiology results as stated below per my review and radiologist interpretation: CT ABDOMEN AND PELVIS Without Contrast: Bilateral nephrolithiasis without obstructing renal stone. Left renal cyst. Large heterogenous prostate. Edema in pelvis, around bladder, seminal vesicles and prostate. Correlate with UA. Appendix not identified. Spinal stenosis and degenerative changes in the spine. Radiologist: Joe Penn M.D. Study ready at 23:10 and initial results at 23:26. Laboratory Results 12/05/17 20:55 12/05/17 20:55 Test 12/05/17 20:55 12/05/17 21:30 12/05/17 23:11 12/06/17 00:54 Red Blood Count 4.63 M/uL (4.7-6.1) Mean Corpuscular Volume 97.8 fL (80-100) Mean Corpuscular Hemoglobin 33.7 pg (25-34) Mean Corpuscular Hemoglobin Concent 34.4 g/dl (32-36) RDW Standard Deviation 49.6 fL (36.4-46.3) RDW Coefficient of Variation 13.9 % (11.5-14.5) Mean Platelet Volume 11.3 fL (7.4-10.4) Anion Gap 9.0 mmol/L (3-11) Estimated GFR () 73.0 Estimated GFR (Non- 63.0 BUN/Creatinine Ratio 13.7 (10-20) Calcium Level 9.1 mg/dl (8.5-10.1) Magnesium Level 3.1 mg/dl (1.8-2.4) Total Bilirubin 0.7 mg/dl (0.2-1) Direct Bilirubin mg/dl (0-0.2) Aspartate Amino Transf (AST/SGOT) 28 U/L (15-37) Alanine Aminotransferase (ALT/SGPT) 30 U/L (12-78) Alkaline Phosphatase 88 U/L (45-117) Total Protein 7.8 gm/dl (6.4-8.2) Albumin 3.8 gm/dl (3.4-5.0) Chemistry Specimen Hemolysis Urine Color YELLOW Urine Appearance CLEAR (CLEAR) Urine pH 7.5 (4.5-7.5) Urine Specific [place] 1.010 (1.000-1.030) Urine Protein TRACE (NEG) Urine Glucose (UA) NEG (NEG) Urine Ketones NEG (NEG) Urine Occult Blood 3+ (NEG) Urine Nitrite NEG (NEG) Urine Bilirubin NEG (NEG) Urine Urobilinogen NEG (NEG) Urine Leukocyte Esterase NEG (NEG) Urine RBC >30 /hpf (0-4) Urine WBC 1-5 /hpf (0-5) Urine Epithelial Cells 0-5 /lpf (0-5) Urine Bacteria 1+ (NEG) Prothrombin Time 20.0 SECONDS (9.0-12.0) Prothromb Time International Ratio 1.9 (0.9-1.1) Laboratory results as stated above per my review. Medications Administered Medications (Trade) Dose Ordered Sig/Linda Route Start Time Stop Time Status Last Admin Dose Admin Sodium Chloride 500 ml @ 999 mls/hr Q31M ONCE IV 12/05/17 21:08 12/05/17 21:38 DC 12/05/17 22:49 999 MLS/HR Ketorolac Tromethamine (Toradol Inj) 30 mg NOW STAT IV 12/05/17 22:42 12/05/17 22:43 DC 12/05/17 22:50 30 MG Ceftriaxone Sodium (Rocephin Inj) 1 gm NOW STAT IV 12/05/17 23:44 12/05/17 23:46 DC 12/06/17 00:16 1 GM Levofloxacin (Levaquin Tab) 500 mg NOW STAT PO 12/05/17 23:44 12/05/17 23:46 DC 12/06/17 00:16 500 MG ED Course 2108: Sodium Chloride 500 ml @ 999 mls/hr IV. 2233: Previous medical records were reviewed. The patient was evaluated in room C6. A complete history and physical examination was performed. 2242: Toradol Inj 30 mg IV. 2344: Levaquin Tab 500 mg PO, Rocephin Inj 1 gm IV. 0015: I spoke with the patient and son and discussed the findings of his CT scan. 0030: I discussed the patient's case with Dr. Suazo. The patient will be evaluated for further treatment and disposition. 0100: On reevaluation, the patient is doing well. I discussed the results and findings with the patient and son. The patient verbalized agreement of the treatment plan. I spoke with Dr. Suazo of the [facility]. The patient will be evaluated for further management and care. Medical Decision Differential considered: pancreatitis, hepatitis, or acute cholecystitis, AAA, UTI, pyelonephritis, kidney stones, appendicitis, diverticulitis, shingles, bowel obstruction mesenteric ischemia, intussusception,hernia, testicular torsion. This is a 72-year-old male who presents to the ED with a chief complaint of pain in her low back as well as discomfort in the suprapubic area as well as hematuria. The patient is on warfarin for chronic A. fib. Patient's initial vital signs reveal hypertension. His physical exam did not reveal any significant CVA tenderness. He is a little tender over the suprapubic area. The patient's blood work reveals a normal CBC and PRP. Urine revealed some bacteria and blood. A CT scan of the abdomen and pelvis reveals bilateral nephrolithiasis. There is some edema noted around the bladder, prostate and pelvic area. On my evaluation of the CT scan, the bladder is distended. This appears to be related to blood clot as a Santos catheter was placed and only a small amount of bloody urine was obtained. The patient was treated with IV Rocephin, IV fluids, by mouth Levaquin and IV Toradol. Because of the results of the tests, the patient be seen by the hospitalist service for further inpatient evaluation and care. Medication Reconcilliation Current Medication List: was personally reviewed by me Blood Pressure Screening Patient's blood pressure: Elevated blood pressure Blood pressure disposition: Elevated BP felt to be situational Consults Time Called: 002 Consulting Physician: Dr. Suazo Returned Call: 0030 Discussed the patient's case. The patient will be evaluated for further treatment and disposition. Impression Primary Impression: Hematuria Additional Impressions: Cystitis Prostatitis Scribe Attestation The scribe's documentation has been prepared under my direction and personally reviewed by me in its entirety. I confirm that the note above accurately reflects all work, treatment, procedures, and medical decision making performed by me. Departure Information Referrals Jakob Ramos M.D. (PCP) Patient Instructions My [facility] Problem Qualifiers
[2017-12-06] MEDS ORDERED: IV FLUIDS COMPLETED PRN (03:15)
--- NOTE | 2017-12-06 04:51 | HISTORY & PHYSICAL EXAMINATION ---
DATE OF ADMISSION: 12/06/2017 PRIMARY CARE PHYSICIAN: Dr. Ramos. CHIEF COMPLAINT: Abdominal pain, hematuria. HISTORY OF PRESENT ILLNESS: History obtained from patient, son, and records. Medical history significant for PAFib on Coumadin, hypertension, hyperlipidemia, GERD, past tobacco abuse. Recent confinement last January 2017 for AFib RVR. Yesterday, patient accompanied son to [place]. He was sitting for a long time in the car. Increased frequency noted, trouble peeing however as per px When patient got home, patient noted achy hypogastric discomfort, urinary retention and hematuria noted. No fever, no chills. No previous episodes. At the Emergency Room, a CT abdomen and pelvis initial read showed bilateral nephrolithiasis without obstructing renal stone, left renal cyst, large heterogeneous prostate; swelling of the bladder/seminal vesicles/ prostate. Santos catheter placed for urinary retention yielding bloody urine and blood clots. Patient received Levaquin for possible prostatitis. MEDICAL HISTORY: As above. SURGERIES: Tonsillectomy/adenoidectomy, hernia repair, orthopedic procedure. HOME MEDICATIONS: Include Coumadin, aspirin, amiodarone, Lopressor, enalapril, simvastatin. ALLERGIES: PENICILLIN. FAMILY HISTORY: Hypertension. PERSONAL AND SOCIAL HISTORY: Past tobacco abuse. No chronic intake of alcohol beverages. 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 REVIEW OF SYSTEMS: As per HPI, all 10 systems reviewed. All other ROS negative. PHYSICAL EXAMINATION: VITAL SIGNS: Blood pressure was noted to be 165/80, later 147/82, pulse rate 68, RR 18, temperature 36.4, sats 94 on room air. GENERAL: Noted to be comfortable, no respiratory distress. SKIN: Normal color. Warm. HEENT: Partial alopecia. Edwards palpebral conjuctivae. No ptosis. Dry mucosa. NECK: Supple. No tenderness. CHEST: Clear to auscultation. No tenderness. HEART: Regular rate and rhythm. No murmur. ABDOMEN: Some distension, nontender. EXTREMITIES: No edema. No gross deformities. No tenderness. NEUROLOGIC: Coherent. No gross focality. LABORATORY DATA: Hemoglobin was noted to be 15, hematocrit 47, white cell count is 7.4, platelets 181. Sodium 136, potassium 3.8, chloride 100, CO2 27, BUN 16, creatinine 1.3, glucose 144. INR was noted t o be 1.9. EKG as per my interpretation rate 70, NSR, LAD, LAFB, right bundle mesfin block , QTC was 500. some T-wave flattening in the inferior leads UA, trace protein, blood, WBC 1-5, bacteria. ASSESSMENT: 1. Hematuria secondary to acute prostatitis causing urinary retention. No sepsis. Hemodynamically stable. 2. Atrial fibrillation, currently normal sinus rhythm. INR slightly subtherapeutic. 3. HTN, slightly elevated 4. Hyperlipidemia on statin therapy. 5. Hyperglycemia rule out DM 6. Past tobacco abuse. PLAN: OBS GMF Retain Santos catheter for now. Follow urine cultures, Bactrim in place of quinolones light of QTC prolongation. Urology consult RE hematuria, urinary retention Hold home ASA and Coumadin for now until hemoglobin is stable. Check hemoglobin A1c DVT prophylaxis. SCDs while INR less than 2 and Coumadin on hold RE bleed. Full code. Patient's son requesting updates from providers, Mr. Satya Ojeda Jr. at [phone]. MTDD
[2017-12-06 05:35] LABS: BASO % 0.3 %; BASO ABS # 0.02 K/uL (0-0.2); EOS ABS # 0.07 K/uL (0-0.5); HEMOGLOBIN 14.3 g/dL (14.0-18.0); IG# 0.01 K/uL (0.00-0.02); LYMPH % 14.9 %; MEAN CELL VOLUME 98.9 fL (80-100); MEAN CORPUSCULAR HEMOGLOBIN 32.9 pg (25-34); MEAN CORPUSCULAR HGB CONC 33.3 g/dl (32-36); MEAN PLATELET VOLUME 10.9 fL (7.4-10.4); MONO % 17.9 %; NEUT % 65.8 %; NEUT ABS # 4.42 K/uL (1.4-6.5); PLATELET COUNT 152 K/uL (130-400); RED CELL DISTRIBUTION WIDTH SD 50.8 fL (36.4-46.3); WHITE BLOOD COUNT 6.72 K/uL (4.8-10.8)
[2017-12-06 05:56] LABS: CALCIUM 8.1 mg/dl (8.5-10.1); CREATININE 0.94 mg/dl (0.60-1.40)
[2017-12-06] MEDS ORDERED: METOPROLOL TARTRATE 25 MG TAB PO ONE (06:00)
--- NOTE | 2017-12-06 06:42 | DIAGNOSTIC IMAGING REPORT ---
ABD/PELVIS WITHOUT FOR STONE CT DOSE: 1710.23 mGy.cm HISTORY: Flank pain r/o stone TECHNIQUE: Multiaxial CT images of the abdomen and pelvis were performed without the use of intravenous and oral contrast according to the standard department stone protocol. A dose lowering technique was utilized adhering to the principles of ALARA. COMPARISON STUDY: None. FINDINGS: Lung bases are clear. Liver spleen and pancreas are uniform. Gallbladder is negative for distention. There is upper pole left renal cyst measuring 6.8 cm. There are bilateral renal nonobstructing calcifications. These measure to 4 mm on the left and 5 mm on the right. There is mild perinephric infiltrative changes bilaterally. This may be age-related. There is a trace amount of periureteral fat stranding bilaterally. No evidence for well-defined obstructing calculus. Bladder is midline with no contained calcifications. Findings of mild to moderate pericystic infiltrative change. Possibility of cystitis is considered. The prostate is enlarged and inhomogeneous raising the possibility of underlying prostatitis. No evidence for abscess or collection. Nonobstructive bowel pattern. IMPRESSION: 1. Pericystic infiltrative change with heterogeneity of the prostate. 2. Possibility of cystitis and/or prostatitis must be considered. 3. Bilateral renal calcifications with no evidence for an obstructing urinary tract calculus. 4. Left renal cyst. 5. Nonobstructive bowel pattern. The above report was generated using voice recognition software. It may contain grammatical, syntax or spelling errors. Electronically signed by: Stef Rooney M.D. 12/06/2017 6:41 AM Dictated Date/Time: 12/06/2017 6:37 AM
[2017-12-06 08:55] LABS: HEMOGLOBIN A1C 5.6 % (4.5-5.6)
[2017-12-06] MEDS ORDERED: METOPROLOL TARTRATE 25 MG TAB PO SCH (09:00)
[2017-12-06] MEDS ORDERED: BACTRIM~PHARMACY CONSULT IN PROGRESS PRN (09:00)
[2017-12-06] MEDS: PANTOprazole SOD 40 MG TAB PO SCH (09:10)
[2017-12-06] MEDS: CEROVITE ADV FORMULA TAB PO SCH (09:10)
[2017-12-06] MEDS: SULFAMETHOXAZOLE/TRIMETHOPRIM DS 800/160MG TAB PO SCH ×2 (09:10→21:39)
[2017-12-06] MEDS: ENALAPRIL MALEATE 10 MG TAB PO SCH ×2 (09:11→21:41)
[2017-12-06] MEDS: SIMVASTATIN 20 MG TAB PO SCH (09:11)
[2017-12-06] MEDS: AMIODARONE 200 MG TAB PO SCH (09:11)
--- NOTE | 2017-12-06 12:31 | Urology Consultation ---
History General Date of Service: Dec 06, 2017. Chief Complaint: urinary retention, gross hematuria Primary Care Physician: Jakob Ramos M.D. Pt seen a urologist before?: No History of Present Illness 72 yo male presents to [facility] with c/o gross hematuria, UR, and abdominal pain. Plata catheter was placed, and the pt was noted to have gross hematuria with clots. Urine today is clear, yellow in the drainage tubing. The pt denies any previous hx of urologic problems or seeing a urologist in the past. He denies weak stream, hesitancy, dribbling, or nocturia prior to onset. CT on admission shows a large left renal cyst, 2 right renal stones, and ? cystitis/prostatitis. Denies dysuria or hematuria prior to onset. No ureteral stones visualized. He has no previous hx of stones. UC&S preliminarily showing pin point growth. He has remained afebrile since admission. White count and Cr are normal. Imaging Imaging: CT Laboratory Last 24 Hours Test 12/05/17 20:55 12/05/17 21:30 12/05/17 23:11 12/06/17 05:13 White Blood Count 7.48 K/uL 6.72 K/uL Red Blood Count 4.63 M/uL 4.35 M/uL Hemoglobin 15.6 g/dL 14.3 g/dL Hematocrit 45.3 % 43.0 % Mean Corpuscular Volume 97.8 fL 98.9 fL Mean Corpuscular Hemoglobin 33.7 pg 32.9 pg Mean Corpuscular Hemoglobin Concent 34.4 g/dl 33.3 g/dl RDW Standard Deviation 49.6 fL 50.8 fL RDW Coefficient of Variation 13.9 % 14.0 % Platelet Count 181 K/uL 152 K/uL Mean Platelet Volume 11.3 fL 10.9 fL Sodium Level 138 mmol/L 139 mmol/L Potassium Level 3.8 mmol/L 4.0 mmol/L Chloride Level 102 mmol/L 106 mmol/L Carbon Dioxide Level 27 mmol/L 27 mmol/L Anion Gap 9.0 mmol/L 6.0 mmol/L Blood Urea Nitrogen 16 mg/dl 16 mg/dl Creatinine 1.14 mg/dl 0.94 mg/dl Estimated GFR () 73.0 92.2 Estimated GFR (Non- 63.0 79.6 BUN/Creatinine Ratio 13.7 17.0 Random Glucose 144 mg/dl 107 mg/dl Calcium Level 9.1 mg/dl 8.1 mg/dl Magnesium Level 3.1 mg/dl Total Bilirubin 0.7 mg/dl Direct Bilirubin mg/dl Aspartate Amino Transf (AST/SGOT) 28 U/L Alanine Aminotransferase (ALT/SGPT) 30 U/L Alkaline Phosphatase 88 U/L Total Protein 7.8 gm/dl Albumin 3.8 gm/dl Chemistry Specimen Hemolysis Urine Color YELLOW Urine Appearance CLEAR Urine pH 7.5 Urine Specific [place] 1.010 Urine Protein TRACE Urine Glucose (UA) NEG Urine Ketones NEG Urine Occult Blood 3+ Urine Nitrite NEG Urine Bilirubin NEG Urine Urobilinogen NEG Urine Leukocyte Esterase NEG Urine RBC >30 /hpf Urine WBC 1-5 /hpf Urine Epithelial Cells 0-5 /lpf Urine Bacteria 1+ Prothrombin Time 20.0 SECONDS 20.7 SECONDS Prothromb Time International Ratio 1.9 2.0 Neutrophils (%) (Auto) 65.8 % Lymphocytes (%) (Auto) 14.9 % Monocytes (%) (Auto) 17.9 % Eosinophils (%) (Auto) 1.0 % Basophils (%) (Auto) 0.3 % Neutrophils # (Auto) 4.42 K/uL Lymphocytes # (Auto) 1.00 K/uL Monocytes # (Auto) 1.20 K/uL Eosinophils # (Auto) 0.07 K/uL Basophils # (Auto) 0.02 K/uL Immature Granulocyte % (Auto) 0.1 % Immature Granulocyte # (Auto) 0.01 K/uL Est Creatinine Clear Calc Drug Dose 90.9 ml/min Estimated Average Glucose 114 mg/dl Hemoglobin A1c 5.6 % Test 12/06/17 12:11 Problem List Medical Problems: (1) Cystitis Status: Acute (2) Palpitations Status: Acute (3) Prostatitis Status: Acute Past History A Fib, GERD, high cholesterol, hypertension Past Surgical History: adenoidectomy, orthopedic surgery, tonsillectomy, other (hernia repair ) Family History Hypertension Social History Hx Tobacco Use In Past Year?: No Smoking: no current use Alcohol: no current use Marital status: single Housing status: lives alone Occupation status: retired Immunizations History of Influenza Vaccine: Yes Influenza Vaccine Date: Aug 25, 2016 History of Tetanus Vaccine?: Unknown History of Pneumococcal: Yes Pneumococcal Date: Nov 27, 2015 History of Hepatitis B Vaccine: No History of MDRO No Allergies Coded Allergies: Penicillins (Unverified Allergy, Unknown, RASH, 12/06/17) Medications Home Medications: Home Meds and Scripts Medications Dose Route/Sig Max Daily Dose Days Date Category Dose Instructions Prilosec (Omeprazole) 20 Mg Capcr 20 Mg PO DAILY 12/06/17 Reported Amiodarone HCl 200 Mg Tab 200 Mg PO DAILY 12/06/17 Reported Metoprolol Tartrate 37.5 Mg Tab 3,705 Mg PO BID 12/06/17 Reported Jantoven (Warfarin Sodium) 5 Mg Tab 5 Mg PO [id number] 02/17/17 Reported Take 5mg every , , , , [place] Jantoven (Warfarin Sodium) 5 Mg Tab 7.5 Mg PO MOFR 02/17/17 Reported Take 7.5mg every Mon and Fri Zocor (Simvastatin) 20 Mg Tab 20 Mg PO QAM 02/17/17 Reported Vasotec (Enalapril Maleate) 10 Mg Tab 20 Mg PO BID 02/17/17 Reported Aspirin Ec (Aspirin) 81 Mg Tab 81 Mg PO QAM 02/17/17 Reported Centrum Silver (Multiple Vitamins W/ Minerals) 1 Chw Chw 1 Tab PO QAM 02/17/17 Reported Inpatient Medications: Current Inpatient Medications Medications (Trade) Dose Ordered Sig/Linda Route Start Time Stop Time Status Last Admin Dose Admin Acetaminophen (Tylenol Tab) 650 mg Q4H PRN PO 12/06/17 01:45 01/05/18 01:44 Miscellaneous Information 1 ea DAILY PRN N/A 12/06/17 09:00 01/05/18 08:59 Tramadol HCl (Ultram Tab) 25 mg Q6H PRN PO 12/06/17 01:45 01/05/18 01:44 Prochlorperazine Edisylate 5 mg/ Syringe 5 ml @ 5 mls/min Q6H PRN IV 12/06/17 01:45 01/05/18 01:44 Amiodarone HCl (Cordarone Tab) 200 mg DAILY PO 12/06/17 09:00 01/05/18 08:59 12/06/17 09:11 200 MG Enalapril Maleate (Vasotec Tab) 20 mg BID PO 12/06/17 09:00 01/05/18 08:59 12/06/17 09:11 20 MG Simvastatin (Zocor Tab) 20 mg QAM PO 12/06/17 09:00 01/05/18 08:59 12/06/17 09:11 20 MG Multivitamins/ Minerals (Multivitamin W/ Minerals Tab) 1 tab QAM PO 12/06/17 09:00 01/05/18 08:59 12/06/17 09:10 1 TAB Pantoprazole Sodium (Protonix Tab) 40 mg QAM PO 12/06/17 09:00 01/05/18 08:59 12/06/17 09:10 40 MG Potassium Chloride/Sodium Chloride 1,000 ml @ 60 mls/hr [id number] ONCE IV 12/06/17 02:15 12/06/17 18:54 12/06/17 03:10 60 MLS/HR Docusate Sodium (coLACE CAP) 100 mg DAILY PO 12/07/17 09:00 01/06/18 08:59 Miscellaneous (Iv Fluids Completed) 1 ea PRN PRN N/A 12/06/17 03:15 12/06/18 03:14 Trimethoprim/ Sulfamethoxazole (Septra Ds 800/ 160MG Tab) 1 tab Q12 PO 12/06/17 09:00 12/16/17 08:59 12/06/17 09:10 1 TAB Metoprolol Tartrate (Lopressor Tab) 37.5 mg BID PO 12/06/17 21:00 01/05/18 08:59 Tamsulosin HCl (Flomax Cap) 0.4 mg HS PO 12/06/17 21:00 01/05/18 20:59 UNV Review of Systems Review of Systems Constitutional: No fever, No chills Eyes: No double vision Neurological: No dizzy Endocrine: No excessive thirst Gastrointestinal: No abdominal pain, No nausea, No vomiting Cardiovascular: No chest pain Respiratory: No shortness of breath Skin: No rash Musculoskeletal: + arthritis Male : + urinary retention, + blood in urine, No painful urination Physical Exam Vital Signs: Vital Signs Past 12 Hours Date Time Temp Pulse Resp B/P (MAP) Pulse Ox O2 Delivery O2 Flow Rate FiO2 12/06/17 09:12 62 150/80 (103) 2/6/18 07:45 Room Air 12/06/17 07:07 37.1 68 16 124/72 (89) 95 Room Air 12/06/17 01:55 36.6 72 16 178/92 Room Air 96 12/06/17 01:27 36.4 69 18 147/82 97 12/06/17 01:18 69 12/06/17 01:10 68 18 147/82 97 Room Air Physical Exam: General Appearance: no apparent distress Eyes: bilateral eyes normal inspection ENT: hearing grossly normal Neck: no JVD Respiratory/Chest: no respiratory distress, no accessory muscle use Cardiovascular: no JVD Genitourinary - Male: Prostate: size (>50gr), pertinent finding (no nodules palpated) Extremities: normal inspection Neurologic/Psychiatric: alert, normal mood/affect, oriented x 3 Skin: normal color Assessment & Plan Assessment & Plan A/P: Urinary retention, BPH with obstruction, gross hematuria, right renal stones, left renal cyst AFVSS. Large non-tender prostate without nodule on exam today. Would recommend continuing Bactrim for 14 days of therapy to tx for any possible prostatitis. UR secondary to BPH. Will start Flomax this evening. Continue plata catheter x 1 week. Outpatient TOV at that time. Will check a PSA while inpatient. Suspect his gross hematuria is r/t plata trauma, but will plan for outpatient cysto to complete evaluation. Hematuria has improved since plata placement. Clear, yellow urine today. Left renal cyst seen on CT likely benign. Right renal stones visualized on CT can be managed with ESWL in the future as an outpatient. Will check a KUB while inpatient. Thanks for the consult. Will continue to follow along with primary service. Agree with above would start finasteride and tamsulosin and d/c w plata on antibiotic for a week . F?U with urology for voiding trial in 7 to 10 days
--- NOTE | 2017-12-06 13:52 | DIAGNOSTIC IMAGING REPORT ---
KUB CLINICAL HISTORY: Nephrolithiasis. FINDINGS: 3 AP supine abdominal radiographs are correlated with abdominal CT dated 12/05/2017. There is a nonobstructed abdominal bowel gas pattern. There are 2 calculi identified projecting over the right kidney. These measure up to 5 mm. No calcifications are clearly seen projecting over the left kidney or along the course of the ureters. The skeletal structures are osteopenic. Advanced lumbosacral spondylosis is identified. IMPRESSION: 1. Nonobstructed abdominal bowel gas pattern. 2. There are 2 nonobstructing right renal calculi identified measuring up to 5 mm. Electronically signed by: Dwayne Stewart M.D. 12/06/2017 1:50 PM Dictated Date/Time: 12/06/2017 1:49 PM
--- NOTE | 2017-12-06 16:10 | Progress Note ---
Progress Note Date of Service Dec 06, 2017. Progress Note Subjective: no acute distress, patient has plata, patient denies pain Physical Exam: General: no acute distress NecK: trachea midline, no JVD Lungs: CTABL Heart: RRR Abdomen: soft, nontender, + bowel sounds Extremities: no edema : plata in place Plan: Patient has been evaluated by [facility] urology for hematuria, urinary retention requiring plata, possibly secondary to prostatitis. Patient gave permission to discuss health with his son [phone] to update him about current health situation. Have informed both the patient and his son that [facility] urology service recommendations is to keep plata for 1 week before followup to the urology group for trial of void. Patient has prolonged QTC on admission and on oral Bactrim. Have explained to patient and family that patient may be discharged with oral bactrim but still awaiting urine culture results. If urine culture results are unremarkable or pansensitive, then can be discharged with oral bactrim for the outpatient follow up with [facility] urology clinic. Possible discharge for tomorrow. Patient also has follow up for primary care with 12/14/2017 11:40 AM Markus Arzola MD Internal Medicine [facility]. Atrial fibrillation, currently normal sinus rhythm. INR levels is 2 therapeutic; Continue Coumadin . Will need anticoagulation clinic appointment for after hospital discharge
[2017-12-06] MEDS ORDERED: TAMSULOSIN HCL 0.4 MG CAP PO SCH (21:00)
[2017-12-06] MEDS: METOPROLOL TARTRATE 25 MG TAB PO SCH (21:41)
[2017-12-07 06:50] LABS: BASO % 0.8 %; BASO ABS # 0.04 K/uL (0-0.2); EOS % 3.1 %; EOS ABS # 0.15 K/uL (0-0.5); HEMATOCRIT 40.4 % (42-52); HEMOGLOBIN 13.3 g/dL (14.0-18.0); LYMPH ABS # 0.98 K/uL (1.2-3.4); MEAN CELL VOLUME 98.5 fL (80-100); MEAN CORPUSCULAR HEMOGLOBIN 32.4 pg (25-34); MEAN CORPUSCULAR HGB CONC 32.9 g/dl (32-36); MONO ABS # 0.78 K/uL (0.11-0.59); NEUT % 60.1 %; NEUT ABS # 2.94 K/uL (1.4-6.5); PLATELET COUNT 156 K/uL (130-400); RED CELL DISTRIBUTION WIDTH CV 14.2 % (11.5-14.5); RED CELL DISTRIBUTION WIDTH SD 51.2 fL (36.4-46.3); WHITE BLOOD COUNT 4.89 K/uL (4.8-10.8)
[2017-12-07 07:10] LABS: INR 2.1 (0.9-1.1)
[2017-12-07 07:21] LABS: ALBUMIN 2.7 gm/dl (3.4-5.0); CALCIUM 8.1 mg/dl (8.5-10.1); CREATININE 0.94 mg/dl (0.60-1.40); POTASSIUM 4.1 mmol/L (3.5-5.1)
[2017-12-07 07:29] LABS: TOTAL PROTEIN 5.8 gm/dl (6.4-8.2)
[2017-12-07 07:35] VITALS: BP 137/74; PULSE 66; TEMP 36.6; O2SAT 96
[2017-12-07 08:49] VITALS: BP 160/81; PULSE 80
[2017-12-07] MEDS: METOPROLOL TARTRATE 25 MG TAB PO SCH (08:50)
[2017-12-07] MEDS: SIMVASTATIN 20 MG TAB PO SCH (08:50)
[2017-12-07] MEDS: SULFAMETHOXAZOLE/TRIMETHOPRIM DS 800/160MG TAB PO SCH (08:50)
[2017-12-07] MEDS: CEROVITE ADV FORMULA TAB PO SCH (08:50)
[2017-12-07] MEDS: AMIODARONE 200 MG TAB PO SCH (08:51)
[2017-12-07] MEDS: ENALAPRIL MALEATE 10 MG TAB PO SCH (08:51)
[2017-12-07] MEDS: PANTOprazole SOD 40 MG TAB PO SCH (08:52)
[2017-12-07] MEDS ORDERED: DOCUSATE SODIUM 100 MG CAP PO SCH (09:00)
[2017-12-07] MEDS ORDERED: FINASTERIDE 5 MG TAB PO SCH (09:00)
--- NOTE | 2017-12-07 11:55 | Progress Note ---
Internal Med Progress Note Date of Service: Dec 07, 2017. Provider Documentation: SUBJECTIVE: Patient seen and examined at bedside. No acute distress. Patient has urine cultures finalized. Patient ready to be discharged to home today. Patient's son informed OBJECTIVE: General: no acute distress NecK: trachea midline, no JVD Lungs: CTABL Heart: RRR Abdomen: soft, nontender, + bowel sounds Extremities: no edema : plata in place ASSESSMENT & PLAN: Imaging Abdomen Pelvis/CT 12/05/17 There is upper pole left renal cyst measuring 6.8 cm. There are bilateral renal nonobstructing calcifications. These measure to 4 mm on the left and 5 mm on the right. There is mild perinephric infiltrative changes bilaterally. This may be age-related. There is a trace amount of periureteral fat stranding bilaterally. No evidence for well-defined obstructing calculus. Bladder is midline with no contained calcifications. Findings of mild to moderate pericystic infiltrative change. Possibility of cystitis is considered. The prostate is enlarged and inhomogeneous raising the possibility of underlying prostatitis. No evidence for abscess or collection. Nonobstructive bowel pattern. IMPRESSION: 1. Pericystic infiltrative change with heterogeneity of the prostate. 2. Possibility of cystitis and/or prostatitis must be considered. 3. Bilateral renal calcifications with no evidence for an obstructing urinary tract calculus. 4. Left renal cyst. 5. Nonobstructive bowel pattern. KUB 12/06/17 1. Nonobstructed abdominal bowel gas pattern. 2. There are 2 nonobstructing right renal calculi identified measuring up to 5 mm. URINE CULTURE Final 12/07/17-1056 MORE THAN THREE TYPES OF ORGANISMS PRESENT, ALL MODERATE COUNTS MIXED PROBABLE SKIN MARQUIS Patient has been evaluated by [facility] urology for hematuria, urinary retention requiring plata, possibly secondary to prostatitis. As per [facility] urology service recommendations on 12/06/17, patient is to keep plata for around 1 week before followup to the urology group for trial of void. The contact information for [facility] urology clinic is Address: [address] [place] [address] , [place] [address] and Patient to be discharged on oral Bactrim for a total of 14 days for prostatitis. Patient was started on Bactrim on 12/06/17. Patient also to be discharged on Tamsulosin and Finasteride to help with urination. Other health issues: Patient has prolonged QTC on admission. History of Atrial fibrillation, currently normal sinus rhythm, and on Coumadin. Patient to be discharged with reduced doses of Coumadin because Bactrim can raise Coumadin levels. Have called [facility] appointment line [phone] to help patient with scheduling appointment for Coumadin labs to be checked Patient also has follow up for primary care with 12/14/2017 11:40 AM Markus Arzola MD Internal Medicine [facility]. Vital Signs: Date Time Temp Pulse Resp B/P (MAP) Pulse Ox O2 Delivery O2 Flow Rate FiO2 12/07/17 08:49 80 160/81 (107) 12/07/17 07:35 36.6 66 16 137/74 (95) 96 Room Air 12/07/17 07:30 Room Air 12/06/17 23:30 Room Air 12/06/17 22:50 36.8 65 16 131/66 (87) 94 Room Air 12/06/17 21:53 151/78 (102) 158/86 (110) 12/06/17 21:43 65 149/77 (101) 12/06/17 16:20 Room Air 12/06/17 15:18 36.9 65 18 161/88 (112) 95 Room Air Lab Results: Results Past 24 Hours Test 12/06/17 12:22 12/07/17 06:11 Range/Units Prostate Specific Antigen 3.060 0.000-4.000 ng/ml White Blood Count 4.89 4.8-10.8 K/uL Red Blood Count 4.10 4.7-6.1 M/uL Hemoglobin 13.3 14.0-18.0 g/dL Hematocrit 40.4 42-52 % Mean Corpuscular Volume 98.5 80-100 fL Mean Corpuscular Hemoglobin 32.4 25-34 pg Mean Corpuscular Hemoglobin Concent 32.9 32-36 g/dl Platelet Count 156 130-400 K/uL Mean Platelet Volume 11.0 7.4-10.4 fL Neutrophils (%) (Auto) 60.1 % Lymphocytes (%) (Auto) 20.0 % Monocytes (%) (Auto) 16.0 % Eosinophils (%) (Auto) 3.1 % Basophils (%) (Auto) 0.8 % Neutrophils # (Auto) 2.94 1.4-6.5 K/uL Lymphocytes # (Auto) 0.98 1.2-3.4 K/uL Monocytes # (Auto) 0.78 0.11-0.59 K/uL Eosinophils # (Auto) 0.15 0-0.5 K/uL Basophils # (Auto) 0.04 0-0.2 K/uL RDW Standard Deviation 51.2 36.4-46.3 fL RDW Coefficient of Variation 14.2 11.5-14.5 % Immature Granulocyte % (Auto) 0.0 % Immature Granulocyte # (Auto) 0.00 0.00-0.02 K/uL Prothrombin Time 22.0 9.0-12.0 SECONDS Prothromb Time International Ratio 2.1 0.9-1.1 Sodium Level 138 136-145 mmol/L Potassium Level 4.1 3.5-5.1 mmol/L Chloride Level 106 98-107 mmol/L Carbon Dioxide Level 26 21-32 mmol/L Anion Gap 6.0 3-11 mmol/L Blood Urea Nitrogen 12 7-18 mg/dl Creatinine 0.94 0.60-1.40 mg/dl Est Creatinine Clear Calc Drug Dose 90.9 ml/min Estimated GFR () 92.2 Estimated GFR (Non- 79.6 BUN/Creatinine Ratio 12.2 10-20 Random Glucose 93 70-99 mg/dl Calcium Level 8.1 8.5-10.1 mg/dl Total Bilirubin 0.8 0.2-1 mg/dl Aspartate Amino Transf (AST/SGOT) 21 15-37 U/L Alanine Aminotransferase (ALT/SGPT) 21 12-78 U/L Alkaline Phosphatase 66 45-117 U/L Total Protein 5.8 6.4-8.2 gm/dl Albumin 2.7 3.4-5.0 gm/dl Globulin 3.1 2.5-4.0 gm/dl Albumin/Globulin Ratio 0.9 0.9-2
[2017-12-07] MEDS ORDERED: PRS5 PO (12:09)
[2017-12-07] MEDS ORDERED: SULF-302 PO (12:09)
[2017-12-07] MEDS ORDERED: WARF5TAB90 PO (12:09)
[2017-12-07] MEDS ORDERED: FLM4 PO (12:09)
[2017-12-07] MEDS ORDERED: LPR25 PO (12:09)
--- NOTE | 2017-12-07 12:20 | Discharge Instructions ---
Discharge Instructions Date of Service Dec 07, 2017. Admission Reason for Admission: Hematuria Discharge Discharge Diagnosis / Problem: Hematura, Urinary retention, Prostatitis, on Coumadin Discharge Goals Goal(s): Improve function, Improve disease control Activity Recommendations Activity Limitations: per Instructions/Follow-up section Shower/Bathe: no limitations . Instructions / Follow-Up Instructions / Follow-Up Imaging Abdomen Pelvis/CT 12/05/17 There is upper pole left renal cyst measuring 6.8 cm. There are bilateral renal nonobstructing calcifications. These measure to 4 mm on the left and 5 mm on the right. There is mild perinephric infiltrative changes bilaterally. This may be age-related. There is a trace amount of periureteral fat stranding bilaterally. No evidence for well-defined obstructing calculus. Bladder is midline with no contained calcifications. Findings of mild to moderate pericystic infiltrative change. Possibility of cystitis is considered. The prostate is enlarged and inhomogeneous raising the possibility of underlying prostatitis. No evidence for abscess or collection. Nonobstructive bowel pattern. IMPRESSION: 1. Pericystic infiltrative change with heterogeneity of the prostate. 2. Possibility of cystitis and/or prostatitis must be considered. 3. Bilateral renal calcifications with no evidence for an obstructing urinary tract calculus. 4. Left renal cyst. 5. Nonobstructive bowel pattern. KUB 12/06/17 1. Nonobstructed abdominal bowel gas pattern. 2. There are 2 nonobstructing right renal calculi identified measuring up to 5 mm. URINE CULTURE Final 12/07/17-1056 MORE THAN THREE TYPES OF ORGANISMS PRESENT, ALL MODERATE COUNTS MIXED PROBABLE SKIN MARQUIS Patient has been evaluated by [facility] urology for hematuria, urinary retention requiring plata, possibly secondary to prostatitis. As per [facility] urology service recommendations on 12/06/17, patient is to keep plata for around 1 week before followup to the urology group for trial of void. The contact information for [facility] urology clinic is Address: [address] [place] [address] , [place] [address] and Patient to be discharged on oral Bactrim for a total of 14 days for prostatitis. Patient was started on Bactrim on 12/06/17. Patient also to be discharged on Tamsulosin and Finasteride to help with urination. Other health issues: Patient has prolonged QTC on admission. History of Atrial fibrillation, currently normal sinus rhythm, and on Coumadin. Patient to be discharged with reduced doses of Coumadin because Bactrim can raise Coumadin levels. Have called [facility] appointment line [phone] to help patient with scheduling appointment for Coumadin labs to be checked Patient also has follow up for primary care with 12/14/2017 11:40 AM Markus Arzola MD Internal Medicine [facility]. Current Hospital Diet Patient's current hospital diet: Clear Liquid Diet Discharge Diet Recommended Diet: Regular Diet Pending Studies Studies pending at discharge: no Laboratory Results 12/07/17 06:11 Red Blood Count 4.10, Mean Corpuscular Volume 98.5, Mean Corpuscular Hemoglobin 32.4, Mean Corpuscular Hemoglobin Concent 32.9, Mean Platelet Volume 11.0, Neutrophils (%) (Auto) 60.1, Lymphocytes (%) (Auto) 20.0, Monocytes (%) (Auto) 16.0, Eosinophils (%) (Auto) 3.1, Basophils (%) (Auto) 0.8, Neutrophils # (Auto ) 2.94, Lymphocytes # (Auto) 0.98, Monocytes # (Auto) 0.78, Eosinophils # (Auto ) 0.15, Basophils # (Auto) 0.04 12/07/17 06:11 Test 12/05/17 20:55 12/05/17 21:30 12/06/17 05:13 12/06/17 12:22 Magnesium Level 3.1 mg/dl (1.8-2.4) Direct Bilirubin mg/dl (0-0.2) Chemistry Specimen Hemolysis Urine Color YELLOW Urine Appearance CLEAR (CLEAR) Urine pH 7.5 (4.5-7.5) Urine Specific [place] 1.010 (1.000-1.030) Urine Protein TRACE (NEG) Urine Glucose (UA) NEG (NEG) Urine Ketones NEG (NEG) Urine Occult Blood 3+ (NEG) Urine Nitrite NEG (NEG) Urine Bilirubin NEG (NEG) Urine Urobilinogen NEG (NEG) Urine Leukocyte Esterase NEG (NEG) Urine RBC >30 /hpf (0-4) Urine WBC 1-5 /hpf (0-5) Urine Epithelial Cells 0-5 /lpf (0-5) Urine Bacteria 1+ (NEG) Estimated Average Glucose 114 mg/dl Hemoglobin A1c 5.6 % (4.5-5.6) Prostate Specific Antigen 3.060 ng/ml (0.000-4.000) Test 12/07/17 06:11 White Blood Count 4.89 K/uL (4.8-10.8) Red Blood Count 4.10 M/uL (4.7-6.1) Hemoglobin 13.3 g/dL (14.0-18.0) Hematocrit 40.4 % (42-52) Mean Corpuscular Volume 98.5 fL (80-100) Mean Corpuscular Hemoglobin 32.4 pg (25-34) Mean Corpuscular Hemoglobin Concent 32.9 g/dl (32-36) Platelet Count 156 K/uL (130-400) Mean Platelet Volume 11.0 fL (7.4-10.4) Neutrophils (%) (Auto) 60.1 % Lymphocytes (%) (Auto) 20.0 % Monocytes (%) (Auto) 16.0 % Eosinophils (%) (Auto) 3.1 % Basophils (%) (Auto) 0.8 % Neutrophils # (Auto) 2.94 K/uL (1.4-6.5) Lymphocytes # (Auto) 0.98 K/uL (1.2-3.4) Monocytes # (Auto) 0.78 K/uL (0.11-0.59) Eosinophils # (Auto) 0.15 K/uL (0-0.5) Basophils # (Auto) 0.04 K/uL (0-0.2) RDW Standard Deviation 51.2 fL (36.4-46.3) RDW Coefficient of Variation 14.2 % (11.5-14.5) Immature Granulocyte % (Auto) 0.0 % Immature Granulocyte # (Auto) 0.00 K/uL (0.00-0.02) Prothrombin Time 22.0 SECONDS (9.0-12.0) Prothromb Time International Ratio 2.1 (0.9-1.1) Anion Gap 6.0 mmol/L (3-11) Est Creatinine Clear Calc Drug Dose 90.9 ml/min Estimated GFR () 92.2 Estimated GFR (Non- 79.6 BUN/Creatinine Ratio 12.2 (10-20) Calcium Level 8.1 mg/dl (8.5-10.1) Total Bilirubin 0.8 mg/dl (0.2-1) Aspartate Amino Transf (AST/SGOT) 21 U/L (15-37) Alanine Aminotransferase (ALT/SGPT) 21 U/L (12-78) Alkaline Phosphatase 66 U/L (45-117) Total Protein 5.8 gm/dl (6.4-8.2) Albumin 2.7 gm/dl (3.4-5.0) Globulin 3.1 gm/dl (2.5-4.0) Albumin/Globulin Ratio 0.9 (0.9-2) Date/Time Source Procedure Growth Status 12/05/17 21:30 Urine , Clean Catch Urine Culture - Final MORE THAN THREE TYPES OF ORGANISMS CA... Complete Hemoglobin A1c Test 12/06/17 05:13 Range/Units Estimated Average Glucose 114 mg/dl Hemoglobin A1c 5.6 4.5-5.6 % Medical Emergencies . Who to Call and When: Medical Emergencies: If at any time you feel your situation is an emergency, please call 911 immediately. . Non-Emergent Contact Non-Emergency issues call your: Primary Care Provider, Urologist . . "Provider Documentation" section prepared by Myles Hensley. . VTE Core Measure Inpt VTE Proph given/why not?: Warfarin (Coumadin)
--- NOTE | 2017-12-07 12:23 | Discharge Summary ---
Discharge Summary Date of Service Dec 07, 2017. Discharge Summary Admission Date: Dec 06, 2017 at 01:02 Discharge Date: Dec 07, 2017 Principal Diagnosis: Hematuria, Urinary retention, Prostatitis, on roasterman Coumadin anticoagulation Consultations: [facility] Urology Medication Reconciliation New Medications: Warfarin Sodium (Coumadin) 5 Mg Tab 5 MG PO DAILY for 10 Days, #10 TAB Finasteride (Finasteride) 5 Mg Tab 5 MG PO QAM for 30 Days, #30 TAB Metoprolol Tartrate (Lopressor) 25 Mg Tab 37.5 MG PO BID for 30 Days, #90 TAB Sulfamethoxazole-Trimethoprim (Smz-Tmp Ds) 1 Tab Tab 1 TAB PO Q12 for 10 Days, #20 TAB Tamsulosin HCl (Tamsulosin HCl) 0.4 Mg Cap 0.4 MG PO HS for 30 Days, #30 CAP Continued Medications: Amiodarone HCl (Amiodarone HCl) 200 Mg Tab 200 MG PO DAILY, TAB Aspirin (Aspirin Ec) 81 Mg Tab 81 MG PO QAM Enalapril (Vasotec) 10 Mg Tab 20 MG PO BID, TAB Multiple Vitamins W/ Minerals (Centrum Silver) 1 Chw Chw 1 TAB PO QAM Omeprazole (Prilosec) 20 Mg Capcr 20 MG PO DAILY, CAP Simvastatin (Zocor) 20 Mg Tab 20 MG PO QAM, TAB Discontinued Medications: Metoprolol Tartrate (Metoprolol Tartrate) 37.5 Mg Tab 3705 MG PO BID Warfarin Sod (Jantoven) 5 Mg Tab 7.5 MG PO MoFr, TAB Take 7.5mg every Mon and Fri Warfarin Sod (Jantoven) 5 Mg Tab 5 MG PO 5XWK, TAB Take 5mg every , , Th, Sa, [place] Admission Information HPI (per Admitting provider): CHIEF COMPLAINT: Abdominal pain, hematuria. HISTORY OF PRESENT ILLNESS: History obtained from patient, son, and records. Medical history significant for PAFib on Coumadin, hypertension, hyperlipidemia, GERD, past tobacco abuse. Recent confinement last January 2017 for AFib RVR. Yesterday, patient accompanied son to [place]. He was sitting for a long time in the car. Increased frequency noted, trouble peeing however as per px When patient got home, patient noted achy hypogastric discomfort, urinary retention and hematuria noted. No fever, no chills. No previous episodes. At the Emergency Room, a CT abdomen and pelvis initial read showed bilateral nephrolithiasis without obstructing renal stone, left renal cyst, large heterogeneous prostate; swelling of the bladder/seminal vesicles/ prostate. Plata catheter placed for urinary retention yielding bloody urine and blood clots. Patient received Levaquin for possible prostatitis. Physical Exam (per Admitting): PHYSICAL EXAMINATION: VITAL SIGNS: Blood pressure was noted to be 165/80, later 147/82, pulse rate 68, RR 18, temperature 36.4, sats 94 on room air. GENERAL: Noted to be comfortable, no respiratory distress. SKIN: Normal color. Warm. HEENT: Partial alopecia. [place] palpebral conjuctivae. No ptosis. Dry mucosa. NECK: Supple. No tenderness. CHEST: Clear to auscultation. No tenderness. HEART: Regular rate and rhythm. No murmur. ABDOMEN: Some distension, nontender. EXTREMITIES: No edema. No gross deformities. No tenderness. NEUROLOGIC: Coherent. No gross focality. Hospital Course Imaging Abdomen Pelvis/CT 12/05/17 There is upper pole left renal cyst measuring 6.8 cm. There are bilateral renal nonobstructing calcifications. These measure to 4 mm on the left and 5 mm on the right. There is mild perinephric infiltrative changes bilaterally. This may be age-related. There is a trace amount of periureteral fat stranding bilaterally. No evidence for well-defined obstructing calculus. Bladder is midline with no contained calcifications. Findings of mild to moderate pericystic infiltrative change. Possibility of cystitis is considered. The prostate is enlarged and inhomogeneous raising the possibility of underlying prostatitis. No evidence for abscess or collection. Nonobstructive bowel pattern. IMPRESSION: 1. Pericystic infiltrative change with heterogeneity of the prostate. 2. Possibility of cystitis and/or prostatitis must be considered. 3. Bilateral renal calcifications with no evidence for an obstructing urinary tract calculus. 4. Left renal cyst. 5. Nonobstructive bowel pattern. KUB 12/06/17 1. Nonobstructed abdominal bowel gas pattern. 2. There are 2 nonobstructing right renal calculi identified measuring up to 5 mm. URINE CULTURE Final 12/07/17-1056 MORE THAN THREE TYPES OF ORGANISMS PRESENT, ALL MODERATE COUNTS MIXED PROBABLE SKIN MARQUIS Patient has been evaluated by [facility] urology for hematuria, urinary retention requiring plata, possibly secondary to prostatitis. As per [facility] urology service recommendations on 12/06/17, patient is to keep plata for around 1 week before followup to the urology group for trial of void. The contact information for [facility] urology clinic is Address: [address] [place] [address], [place] [address] and Patient to be discharged on oral Bactrim for a total of 14 days for prostatitis. Patient was started on Bactrim on 12/06/17. Patient also to be discharged on Tamsulosin and Finasteride to help with urination. Other health issues: Patient has prolonged QTC on admission. History of Atrial fibrillation, currently normal sinus rhythm, and on Coumadin. Patient to be discharged with reduced doses of Coumadin because Bactrim can raise Coumadin levels. Have called [facility] appointment line [phone] to help patient with scheduling appointment for Coumadin labs to be checked Patient also has follow up for primary care with 12/14/2017 11:40 AM Markus Arzola MD Internal Medicine [facility]. Total time spent on discharge = 60 minutes This includes examination of the patient, discharge planning, medication reconciliation, and communication with other providers. Discharge Instructions see above
[2017-12-07 13:19] VITALS: BP 160/81; PULSE 80; TEMP 36.6; O2SAT 96
[2017-12-07] MEDS ORDERED: WARFARIN SOD 5 MG TAB PO SCH (16:00)
[2017-12-09] MEDS ORDERED: WARFARIN SOD 7.5 MG TAB PO SCH (16:00)
== END 2017-12-07 15:12 | disposition home or self-care (01) ==
LOC: C.EDB 20:23 → C.MSW 12-06 01:02 → ENRESERV 12-06 01:15
PROVIDERS: ADMIT Internal Medicine; ATTEND Hospitalist
DX: R31.0 Gross hematuria (principal); R33.9 Retention of urine, unspecified; N41.9 Inflammatory disease of prostate, unspecified; N20.0 Calculus of kidney; N28.1 Cyst of kidney, acquired; N40.1 Benign prostatic hyperplasia with lower urinary tract symptoms; I48.0 Paroxysmal atrial fibrillation; E78.5 Hyperlipidemia, unspecified; K21.9 Gastro-esophageal reflux disease without esophagitis; I10 Essential (primary) hypertension; Z79.82 Long term (current) use of aspirin; Z79.01 Long term (current) use of anticoagulants; Z88.0 Allergy status to penicillin

== ENCOUNTER 2019-01-20 18:43 | Observation (INO) ==
[2019-01-20 19:44] LABS: Basophils # (auto) 0.03 K/uL (0-0.2); Basophils % (auto) 0.7 %; Eosinophils % (auto) 2.3 %; Hemoglobin 13.6 g/dL (14.0-18.0); Lymphocytes % (auto) 23.1 %; Mean Corpuscular Volume 98.8 fL (80-100); Mean Platelet Volume 11.3 fL (7.4-10.4); Monocytes # (auto) 0.75 K/uL (0.11-0.59); Monocytes % (auto) 17.3 %; Neutrophils # (auto) 2.45 K/uL (1.4-6.5); Neutrophils % (auto) 56.6 %; Platelet Count 152 K/uL (130-400); RDW Coefficient of Variation 13.5 % (11.5-14.5); RDW Standard Deviation 49.3 fL (36.4-46.3); Red Blood Count 4.05 M/uL (4.7-6.1); White Blood Count 4.33 K/uL (4.8-10.8)
[2019-01-20 19:51] LABS: Alanine Aminotransferase 27 U/L (12-78); Albumin Level 3.2 gm/dl (3.4-5.0); Aspartate Aminotransferase 23 U/L (15-37); BUN Creatinine Ratio 12.2 (10-20); Blood Urea Nitrogen 11 mg/dl (7-18); Calcium 8.1 mg/dl (8.5-10.1); Carbon Dioxide 30 mmol/L (21-32); Chloride 111 mmol/L (98-107); Creatinine Clr Calc Pharmacy 100.4 ml/min; Est GFR (African American) 98.3; Est GFR (Non-African American) 84.8; Glucose 89 mg/dl (70-99); Magnesium 2.2 mg/dl (1.8-2.4); Potassium 3.7 mmol/L (3.5-5.1); Sodium 144 mmol/L (136-145)
[2019-01-20 19:57] LABS: INR 3.3 (0.9-1.1); Prothrombin Time 31.2 Seconds (9.0-12.0)
--- NOTE | 2019-01-20 19:59 | XRay Report ---
XR chest 1V portable CLINICAL HISTORY: weakness COMPARISON STUDY: Chest radiograph February 17, 2017. FINDINGS: There is no pneumothorax or pleural effusion. No consolidation or evidence for pulmonary ed peter. Mild enlargement of the cardiac silhouette is unchanged. The appearance of the chest is unchange d. IMPRESSION: No acute cardiopulmonary findings. Electronically signed by: Loy Flores M.D. 01/20/2019 7:57 PM
[2019-01-20 20:02] LABS: Alkaline Phosphatase 87 U/L (45-117); Bilirubin,Total 0.4 mg/dl (0.2-1); Globulin 3.1 gm/dl (2.5-4.0); Total Protein 6.3 gm/dl (6.4-8.2); Troponin I < 0.015 ng/ml (0-0.045)
[2019-01-20 20:14] LABS: Appearance Urine Clear (Clear); Bilirubin Urine Negative (Negative); Blood Urine Negative (Negative); Color Urine Yellow; Glucose Urine UA Negative (Negative); Ketones Urine Negative (Negative); Leukocyte Esterase Urine Negative (Negative); Nitrite Urine Negative (Negative); Protein Urine Negative (Negative); Specific Gravity Urine 1.013 (1.000-1.030); Urobilinogen Urine Negative (Negative); pH Urine 7.5 (4.5-7.5)
--- NOTE | 2019-01-20 20:25 | Emergency Department Note ---
Entered by Carol Snell acting as a scribe for Yao Nieto MD ED Provider Note CHIEF COMPLAINT: Cardiac assessment HISTORY OF PRESENT ILLNESS: The patient is a 73 year old male who presents to the Emergency Room for a cardiac assessment. . The patients sons reports the patient has history of atr ial fibrillation. The son notes when he came back from his job he saw that the patient was not feeling well. The son reports that the patient was urinating frequently and his pulse was irregular. He reports they had to stop twice on the way here because the patient had to urinate. No medication was taken for the symptoms. He took all of his home medications today. He takes amiodarone and metoprolol. He follows with [facility] cardiology. Pt denies LOC, headache, fevers, chills, diaphoresis, visual changes, neck pain, chest pain, breathing difficulties, nausea, vomiting, abdominal pain, back pain, melena, hematochezia, numbness, weakness, lymphadenopathy, rash, or other complaints. REVIEW OF SYSTEMS: See HPI for pertinent positives and negatives. A total of ten systems were reviewed and were otherwise negative. PMHx/PSHx: Atrial fibrillation with RVR HTN Dyslipidemia GERD Constipation PAF Hematuria SOCIAL HISTORY: Patient lives at home. PHYSICAL EXAM: GENERAL: Awake, alert, tired-appearing, in no distress HENT: Normocephalic, atraumatic. Oropharynx unremarkable. EYES: Normal conjunctiva. Sclera non-icteric. NECK: Inspection normal. Non-tender. Supple. No nuchal rigidity. FROM. No masses. RESPIRATORY: Clear to auscultation. No wheezes. No rales. Normal respiratory effort. CARDIAC: Normal rate. Normal rhythm. No murmurs. No rubs. Extremities warm and well perfused. Pulses equal. No JVD. GI: Soft, non-distended. No tenderness to palpation. No rebound or guarding. No masses. RECTAL: Deferred. MUSCULOSKELETAL: Atraumatic. Chest examination reveals no tenderness. The back is symmetrical on inspection without obvious abnormality. There is no CVA tenderness to palpation. No joint edema. LOWER EXTREMITIES: Calves are equal size bilaterally and non-tender. 2+ edema. Chronic venous discoloration. NEURO: Normal sensorium. No sensory or motor deficits noted. SKIN: No rash or jaundice noted. EMERGENCY DEPARTMENT COURSE: 1902: The patient was evaluated in room C12A, and a complete history and physical examination were performed. 2058: I checked on the patient. The patient feels better. 2124: I reviewed the patient's case with Dr. Alejo, Cardiology. He said given the scenario, he would like the patient to be admitted for cardiac monitoring and consultation. 2132: I reevaluated the patient and updated him on test results. I discussed the treatment plan with the patient and son. The patient verbally agreed and under stood. MEDICAL DECISION MAKING: Triage Nursing notes reviewed and agree them. Additional history obtained from the family. The patient's history was concerning for palpitations and urinary frequency. Differential diagnosis: Etiologies such as electrolyte abnormality, cardiac dysrhythmia, thyroid dysfunction, pulmonary embolism, infection, urinary tract infection, gas trointestinal, as well as others were entertained. Physical examination: Benign as above. ER treatment provided: Cardiac monitoring. On reassessment the patient felt the same. However, the patient's urinary frequency had resolved. Urinalysis is negative. Diagnostic interpretation by me: The electrocardiogram initially showed a sinus rhythm. The patient then had what appeared to be paroxysmal a flutter on cardiac monitoring as well as the second ECG. No ischemia. The labs revealed a mild anemia which is stable on CBC. Chemistry panel was unremarkable. Urinalysis was negative. Troponin negative. Magnesium normal. Imaging studies: Chest x-ray performed and was negative. Consultation: A consultation was placed with Dr. Alejo of [facility] cardiology. Given the fact the patient is bradycardic at baseline and then becomes mildly tachycardic with the flutter he was concerned that simple medication adjustment may be dangerous for the patient. He would like for him to come into the hospital for monitoring and cardiology consultation. A consultation was placed with the hosp italist. The case was discussed and diagnostics were reviewed. The patient was evaluated in the ER for further treatment. IMPRESSION: Palpitations paroxysmal atrial flutter Urinary frequency PLAN: Admit The scribe's documentation has been prepared under my direction and personally reviewed by me in its entirety. I confirm that the note above accurately reflects all work, treatment, procedures, and medical decision making performed by me. 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) Dyslipidemia (Chronic) GERD (gastroesophageal reflux disease) (Chronic) Constipation (Chronic) PAF (paroxysmal atrial fibrillation) (Chronic) Hematuria Surgical History H/O hernia repair Family History Other Family history non-contributory Social History Feels Safe at Home: Yes Smoking Status: Former smoker Results & Data Vital Signs Vital Signs - 24 hr 01/20/19 18:51 01/20/19 19:00 01/20/19 19:20 Temperature 36.9 C Temperature Source Oral Sepsis Recent Fever Within 48 Hours No Sepsis Action Taken by Nursing No Action Required Pulse Rate 67 56 L Pulse Rate [Exercises] Pulse Rate [Resting] Pulse Rate from SpO2 Sensor Pulse Rhythm Regular Pulse Strength Normal Respiratory Rate 20 14 Respiratory Rate [Exercises] Respiratory Rate [Resting] Respiratory Effort / Characteristics Non-Labored Spontaneous Non-Labored Spontaneous Respiratory Depth Normal Normal Blood Pressure 189/95 H 148/102 H Blood Pressure Mean 126 117 Blood Pressure Position Sitting Pulse Oximetry 95 95 Pulse Oximetry [Exercises] Pulse Oximetry [Resting] Oxygen Delivery Method Room Air Room Air 01/20/19 19:31 01/20/19 19:38 01/20/19 20:01 Temperature Temperature Source Sepsis Recent Fever Within 48 Hours Sepsis Action Taken by Nursing Pulse Rate 59 L 67 55 L Pulse Rate [Exercises] Pulse Rate [Resting] Pulse Rate from SpO2 Sensor 61 53 L Pulse Rhythm Regular Pulse Strength Respiratory Rate 9 L 20 12 Respiratory Rate [Exercises] Respiratory Rate [Resting] Respiratory Effort / Characteristics Respiratory Depth Blood Pressure 131/71 133/74 Blood Pressure Mean 91 93 Blood Pressure Position Pulse Oximetry 94 95 97 Pulse Oximetry [Exercises] Pulse Oximetry [Resting] Oxygen Delivery Method Room Air Room Air Room Air 01/20/19 20:31 01/20/19 21:01 01/20/19 21:25 Temperature Temperature Source Sepsis Recent Fever Within 48 Hours Sepsis Action Taken by Nursing Pulse Rate 53 L 54 L Pulse Rate [Exercises] 74 Pulse Rate [Resting] 57 L Pulse Rate from SpO2 Sensor 54 L 53 L Pulse Rhythm Pulse Strength Respiratory Rate 19 15 Respiratory Rate [Exercises] 24 Respiratory Rate [Resting] 18 Respiratory Effort / Characteristics Respiratory Depth Blood Pressure 149/76 H 143/76 H Blood Pressure Mean 100 98 Blood Pressure Position Pulse Oximetry 96 96 Pulse Oximetry [Exercises] 93 Pulse Oximetry [Resting] 97 Oxygen Delivery Method Room Air Room Air Room Air Home Medications Current Medication List: was personally reviewed by me Laboratory Data Attestation: I reviewed the patient's lab results. Result diagrams: 01/20/19 19:10 01/20/19 19:10 Lab Results 01/20/19 01/20/19 01/20/19 Range/Units 19:05 19:10 19:10 WBC 4.33 L (4.8-10.8) K/uL RBC 4.05 L (4.7-6.1) M/uL Hgb 13.6 L (14.0-18.0) g/dL Hct 40.0 L (42-52) % MCV 98.8 (80-100) fL MCH 33.6 (25-34) pg MCHC 34.0 (32-36) g/dL RDW Std Deviation 49.3 H (36.4-46.3) fL RDW Coeff of Naisa 13.5 (11.5-14.5) % Plt Count 152 (130-400) K/uL MPV 11.3 H (7.4-10.4) fL Immature Gran % (Auto) 0.0 % Neut % (Auto) 56.6 % Lymph % (Auto) 23.1 % [place] % (Auto) 17.3 % Eos % (Auto) 2.3 % Baso % (Auto) 0.7 % Immature Gran # (Auto) 0.00 (0.00-0.02) K/uL Neut # (Auto) 2.45 (1.4-6.5) K/uL Lymph # (Auto) 1.00 L (1.2-3.4) K/uL [place] # (Auto) 0.75 H (0.11-0.59) K/uL Eos # (Auto) 0.10 (0-0.5) K/uL Baso # (Auto) 0.03 (0-0.2) K/uL PT 31.2 H (9.0-12.0) Seconds INR 3.3 H (0.9-1.1) Sodium (136-145) mmol/L Potassium (3.5-5.1) mmol/L Chloride (98-107) mmol/L Carbon Dioxide (21-32) mmol/L Anion Gap (3-11) BUN (7-18) mg/dl Creatinine (0.6-1.4) mg/dl Est Cr Clr Drug Dosing ml/min Est GFR ( Amer) Est GFR (Non-Af Amer) BUN/Creatinine Ratio (10-20) Glucose (70-99) mg/dl Calcium (8.5-10.1) mg/dl Magnesium (1.8-2.4) mg/dl Total Bilirubin (0.2-1) mg/dl AST (15-37) U/L ALT (12-78) U/L Alkaline Phosphatase (45-117) U/L Troponin I (0-0.045) ng/ml Total Protein (6.4-8.2) gm/dl Albumin (3.4-5.0) gm/dl Globulin (2.5-4.0) gm/dl Albumin/Globulin Ratio (0.9-2) TSH (0.300-4.500) uIu/ml Urine Color Yellow Urine Appearance Clear (Clear) Urine pH 7.5 (4.5-7.5) Ur Specific [place] 1.013 (1.000-1.030) Urine Protein Negative (Negative) Urine Glucose (UA) Negative (Negative) Urine Ketones Negative (Negative) Urine Blood Negative (Negative) Urine Nitrite Negative (Negative) Urine Bilirubin Negative (Negative) Urine Urobilinogen Negative (Negative) Ur Leukocyte Esterase Negative (Negative) 01/20/19 Range/Units 19:10 WBC (4.8-10.8) K/uL RBC (4.7-6.1) M/uL Hgb (14.0-18.0) g/dL Hct (42-52) % MCV (80-100) fL MCH (25-34) pg MCHC (32-36) g/dL RDW Std Deviation (36.4-46.3) fL RDW Coeff of Anisa (11.5-14.5) % Plt Count (130-400) K/uL MPV (7.4-10.4) fL Immature Gran % (Auto) % Neut % (Auto) % Lymph % (Auto) % [place] % (Auto) % Eos % (Auto) % Baso % (Auto) % Immature Gran # (Auto) (0.00-0.02) K/uL Neut # (Auto) (1.4-6.5) K/uL Lymph # (Auto) (1.2-3.4) K/uL [place] # (Auto) (0.11-0.59) K/uL Eos # (Auto) (0-0.5) K/uL Baso # (Auto) (0-0.2) K/uL PT (9.0-12.0) Seconds INR (0.9-1.1) Sodium 144 (136-145) mmol/L Potassium 3.7 (3.5-5.1) mmol/L Chloride 111 H (98-107) mmol/L Carbon Dioxide 30 (21-32) mmol/L Anion Gap 3.0 (3-11) BUN 11 (7-18) mg/dl Creatinine 0.86 (0.6-1.4) mg/dl Est Cr Clr Drug Dosing 100.4 ml/min Est GFR ( Amer) 98.3 Est GFR (Non-Af Amer) 84.8 BUN/Creatinine Ratio 12.2 (10-20) Glucose 89 (70-99) mg/dl Calcium 8.1 L (8.5-10.1) mg/dl Magnesium 2.2 (1.8-2.4) mg/dl Total Bilirubin 0.4 (0.2-1) mg/dl AST 23 (15-37) U/L ALT 27 (12-78) U/L Alkaline Phosphatase 87 (45-117) U/L Troponin I < 0.015 (0-0.045) ng/ml Total Protein 6.3 L (6.4-8.2) gm/dl Albumin 3.2 L (3.4-5.0) gm/dl Globulin 3.1 (2.5-4.0) gm/dl Albumin/Globulin Ratio 1.0 (0.9-2) TSH 4.410 (0.300-4.500) uIu/ml Urine Color Urine Appearance (Clear) Urine pH (4.5-7.5) Ur Specific [place] (1.000-1.030) Urine Protein (Negative) Urine Glucose (UA) (Negative) Urine Ketones (Negative) Urine Blood (Negative) Urine Nitrite (Negative) Urine Bilirubin (Negative) Urine Urobilinogen (Negative) Ur Leukocyte Esterase (Negative) Imaging Data Radiologist's Impression: Radiology results as stated below per my review and the radiologist's interpretation: XR chest 1V portable CLINICAL HISTORY: weakness COMPARISON STUDY: Chest radiograph February 17, 2017. FINDINGS: There is no pneumothorax or pleural effusion. No consolidation or evidence for pulmonary edema. Mild enlargement of the cardiac silhouette is unchanged. The appearance of the chest is unchanged. IMPRESSION: No acute cardiopulmonary findings. Electronically signed by: Loy Flores M.D. 01/20/2019 7:57 PM ECG Data Attestation: I personally reviewed and interpreted this ECG as follows: Indication: palpitations Rate (beats per minute): 58 Rhythm: sinus bradycardia Findings: + other (RBBB) and + left axis deviation; no ST depression and no ST elevation Additional Comments: Repeat ECG: Indication: Change in rhythm Slow atrial flutter at 81 bpm that converts to sinus rhythm. Left axis deviation RBBB Blood Pressure Blood Pressure Findings: Elevated blood pressure Blood Pressure Disposition: further management by hospitalist Discharge Plan Visit Data Chief Complaint: Cardiac Assessment Stated Complaint: HYPERTENTION,IRREGULAR HEART BEAT ED Provider: Yao Nieto Discharge Problem: Palpitations, Paroxysmal atrial flutter, Urinary frequency Patient Disposition: Being Evaluated by Hospitalist Forms Stand Alone Forms: My [facility] Prescriptions Prescriptions: No Action donepezil 5 mg tablet 5 mg PO DAILY RF: 0 amiodarone 200 mg tablet 200 mg PO QAM RF: 0 enalapril maleate 20 mg tablet 20 mg PO BID RF: 0 aspirin 81 mg Tablet,Delayed Release (Dr/Ec) 81 mg PO QAM RF: 0 tamsulosin 0.4 mg capsule 0.4 mg PO HS RF: 0 simvastatin 20 mg tablet 20 mg PO QAM RF: 0 warfarin 2 mg tablet See Rx Instructions .ROUTE .COMPLEX RF: 0 finasteride 5 mg tablet 5 mg PO QAM RF: 0 metoprolol tartrate 25 mg tablet 37.5 mg PO BID RF: 0 Centrum Silver 0.4-300-250 mg-mcg-mcg Tablet 1 tab PO QAM RF: 0 omeprazole 20 mg Tablet,Delayed Release (Dr/Ec) 20 mg PO QAM RF: 0 Referrals Referrals: Jakob Ramos MD [Primary Care Provider] - The scribe's documentation has been prepared under my direction and personally reviewed by me in its entirety. I confirm that the note above accurately reflects all work, treatment, procedures, and medical decision making performed by me.
[2019-01-20] MEDS ORDERED: ACETAMINOPHEN 325 MG TAB PO PRN (23:35)
[2019-01-20] MEDS ORDERED: ALUMINUM/MAGNESIUM SUSP 30 ML UDC PO PRN (23:35)
[2019-01-20] MEDS ORDERED: NITROGLYCERIN SL 0.4 MG/TAB TAB SL PRN (23:35)
[2019-01-20] MEDS ORDERED: POLYETHYLENE (MIRALAX) 17 GM PACK PO PRN (23:35)
[2019-01-20] MEDS ORDERED: ONDANSETRON INJ 2 MG/ML 2 ML VIAL IV PRN (23:35)
--- NOTE | 2019-01-21 02:58 | History and Physical Report ---
DATE OF ADMISSION: 01/20/2019 CHIEF COMPLAINT: Some palpitations, some increased urinary frequency. HISTORY OF PRESENT ILLNESS: This 73-year-old male with past medical history significant for hyperlipidemia, AFib, hypertension and constipation, who lives with his son, was brought in because of palpitations and irregular heart rate. When son came to the house, the patient complained of increased frequency of the urine and when checked the blood pressure was high in the 180s, when he checked his pulse, heart was irregular. Son used to work in the hospital at [facility] [facility] [employer] before and at that time he decided to take the patient to the hospital. UA is negative in the hospital, but his heart rate is in atrial flutter. Heart rate is going up and down, seemed to be trying to convert to sinus rhythm and becomes bradycardic in 50s, but not getting converted and again going back into 70s. Currently, resting comfortably and hemodynamically stable. Denies any chest pain. No nausea. No sweating. No shortness of breath. No headache. No blurred visions. No runny nose. No sore throat. No difficulty swallowing. Appetite is okay. No abdominal pain. Normal bowel and bladder movements. No blood in the stool. No black stools. No hematuria. No burning micturition. Usually ambulates without any help. ALLERGIES: PENICILLINS. PAST MEDICAL HISTORY: As mentioned above. PAST SURGICAL HISTORY: Colonoscopy, cystoscopy, tonsillectomy and adenoidectomy and right inguinal hernia repair. MEDICATIONS: The patient is on Aricept 5 mg p.o. daily, Proscar 5 mg p.o. daily, Lopressor 37.5 mg p.o. b.i.d., simvastatin 20 mg p.o. daily, Flomax 0.4 mg p.o. daily, Coumadin 2 mg on Tuesdays and 4 mg on other days, amiodarone 200 mg p.o. daily, enalapril 20 mg p.o. b.i.d., aspirin 81 mg p.o. daily, Centrum Silver 1 tablet daily and Prilosec 20 mg p.o. daily. FAMILY HISTORY: Significant for mother has Alzheimer's disease. SOCIAL HISTORY: . Former smoker. Alcohol, occasional. No drug use. REVIEW OF SYMPTOMS: As per HPI. Rest of review of systems is negative. PHYSICAL EXAMINATION: GENERAL: The patient is of moderate build, not in acute distress. VITAL SIGNS: Temperature 36.9, pulse 51, respiratory rate 16, blood pressure 133/71 and oxygen 97% on room air. HEENT: No pallor. No icterus. Pupils equal, round and react to light. NECK: No JVD. No neck masses. No carotid bruits. CARDIOVASCULAR: S1, S2 heard. Bradycardia. No murmurs. RESPIRATORY SYSTEM: Normal AP diameter. No accessory muscle use. No wheezing. No crackles. ABDOMEN: Soft. Bowel sounds present. Nontender. No distention. CENTRAL NERVOUS SYSTEM: Cranial nerves II through XII grossly intact. Nonfocal. EXTREMITIES: Bilateral lower extremity +2 pedal edema present. LABORATORY DATA: WBC is 4.3, hemoglobin 13.6, hematocrit 40 and platelets of 152. PT 31.2. INR 3.3. Sodium 144, potassium 3.7, chloride 111, CO2 of 30, BUN 11, creatinine 0.8, serum glucose 89, calcium 8.1, magnesium 2.2, total bilirubin 0.4, AST 23, ALT 27, alkaline phosphatase 87. Troponin I less than 0.015. TSH 4.4. Urinalysis negative. Chest x-ray, no acute cardiopulmonary findings. EKG shows sinus bradycardia, rate of 58, right bundle-branch block, and QTc of 426. ASSESSMENT AND PLAN: This is a 73-year-old male, who presents with irregular rhythm and some palpitations and found to be in atrial fibrillation. 1. Atrial fibrillation, the patient has history of paroxysmal atrial fibrillation. The patient complained of frequent micturition at home and son has checked his pulse, it was irregular and blood pressure was high, so brought to the hospital, his heart rate is going up and down with bradycardia and coming back to atrial fibrillation. Emergency Room physician spoke with the youth specialist, mimi was advised to observe overnight on tele floor. Continue his home medication, of amiodarone and Lopressor for now. INR is therapeutic, continue with Coumadin. We will follow serial cardiac enzymes and echocardiogram and further management as per Cardiology, son says he was cardioverted once in the past. 2. QT prolongation with follow repeat electrocardiogram in a.m. We will closely follow the electrolytes. The patient is on amiodarone. We will avoid QT prolongation drugs. 3. Hyperlipidemia, on statin. 4. Hypertension, on enalapril and Lopressor. Monitor blood pressure. 5. Dementia, recently the patient has followed with the neurology, an MRI scan was done which showed some volume loss and he was started on Aricept, which we will continue. 6. Benign prostatic hypertrophy, on Flomax and Proscar. 7. Deep venous thrombosis prophylaxis. INR therapeutic. 8. Disposition, admit to Tele floor. Level I full code.Physical therapy and occupational therapy prior to discharge. Supercharger Mechanic to help with discharge planning. BHUPINDER
[2019-01-21 06:04] LABS: Basophils # (auto) 0.03 K/uL (0-0.2); Basophils % (auto) 0.8 %; Eosinophils # (auto) 0.15 K/uL (0-0.5); Hematocrit (blood only) 36.7 % (42-52); Hemoglobin 12.2 g/dL (14.0-18.0); Immature Granulocytes # (auto) 0.01 K/uL (0.00-0.02); Immature Granulocytes % (auto) 0.3 %; Lymphocytes # (auto) 0.97 K/uL (1.2-3.4); Lymphocytes % (auto) 25.6 %; Mean Corpuscular Hgb Conc 33.2 g/dL (32-36); Mean Corpuscular Volume 99.7 fL (80-100); Monocytes % (auto) 18.5 %; Neutrophils # (auto) 1.93 K/uL (1.4-6.5); Neutrophils % (auto) 50.8 %; Platelet Count 136 K/uL (130-400); RDW Coefficient of Variation 13.7 % (11.5-14.5); RDW Standard Deviation 50.4 fL (36.4-46.3); Red Blood Count 3.68 M/uL (4.7-6.1); White Blood Count 3.79 K/uL (4.8-10.8)
[2019-01-21 06:29] LABS: INR 3.3 (0.9-1.1); Prothrombin Time 31.4 Seconds (9.0-12.0)
[2019-01-21 06:37] LABS: BUN Creatinine Ratio 11.3 (10-20); Creatinine Clr Calc Pharmacy 104.5 ml/min; Est GFR (African American) 100.3; Est GFR (Non-African American) 86.5; Magnesium 2.2 mg/dl (1.8-2.4); Potassium 3.6 mmol/L (3.5-5.1)
[2019-01-21 06:42] LABS: Troponin I 0.024 ng/ml (0-0.045)
[2019-01-21] MEDS ORDERED: PERFLUTREN LIPID MICROSPHERE (DEFINITY) IV ONE (07:51)
[2019-01-21] MEDS ORDERED: ENALAPRIL MALEATE 10 MG TAB PO SCH (09:00)
[2019-01-21] MEDS ORDERED: DONEPEZIL HCL 5 MG TAB PO SCH (09:00)
[2019-01-21] MEDS ORDERED: AMIODARONE 200 MG TAB PO SCH (09:00)
[2019-01-21] MEDS ORDERED: FINASTERIDE 5 MG TAB PO SCH (09:00)
[2019-01-21] MEDS ORDERED: ASPIRIN 81 MG ECTAB PO SCH (09:00)
[2019-01-21] MEDS ORDERED: SIMVASTATIN 20 MG TAB PO SCH (09:00)
[2019-01-21] MEDS ORDERED: METOPROLOL TARTRATE 25 MG TAB PO SCH (09:00)
[2019-01-21] MEDS ORDERED: PANTOprazole 40 MG TAB PO SCH (09:00)
[2019-01-21] MEDS ORDERED: CEROVITE ADV FORMULA TAB PO SCH (09:00)
--- NOTE | 2019-01-21 10:21 | Cardiology Consultation ---
Date of Consultation January 21, 2019 Assessment & Plan (1) PAF (paroxysmal atrial fibrillation): The patient is currently anticoagulated and on amiodarone. He is been stable as an outpatient. No significant arrhythmias since hospital admission. I believe he can be discharged with outpatient follow-up. (2) retirement (current) use of anticoagulants: Continue current medications. (3) Urinary frequency: No urinary frequency since admission. (4) Dementia: The patient has early memory loss which may have contributed to his symptoms last night. History of Present Illness Attending Physician: Rossi Costa MD History of Present Illness This is a 73-year-old male patient with a history of early dementia. He is followed through our clinic with the history below. Last evening he was having problems with micturition. He was having frequency and urgency. His son noted a rapid heart rate he was brought to the emergency department. On the way to the emergency department they had to stop to allow him to go to the bathroom. When he arrived to the emergency department his dysuria resolved and a workup was unremarkable including urinalysis. On the telemetry he was having short runs of A. fib and we felt it best that we watch him overnight. Since admission he has been doing well. He is actually had no significant arrhythmias on the heart monitor and his sinus rhythm has been in the 50s and 60s consistently. Cardiac markers are negative. Past medical history: 1. Paroxysmal atrial fib, currently NSR on Amiodarone and Metoprolol. 2. Hypertension - controlled 3. Dyslipidemia - controlled 4. Chronic anticoagulation therapy 5. Short term memory loss Allergies Allergy/AdvReac Type Severity Reaction Status Date / Time Penicillins Allergy Unknown Rash Verified 01/20/19 19:45 Home Medications Home Medications Medication Instructions Recorded Confirmed Type amiodarone 200 mg PO QAM 01/20/19 01/20/19 History aspirin 81 mg PO QAM 01/20/19 01/20/19 History donepezil 5 mg PO DAILY 01/20/19 01/20/19 History enalapril maleate 20 mg PO BID 01/20/19 01/20/19 History finasteride 5 mg PO QAM 01/20/19 01/20/19 History metoprolol tartrate 37.5 mg PO BID 01/20/19 01/20/19 History xcautavp-ghy-RR-lycopen-lutein 1 tab PO QAM 01/20/19 01/20/19 History [Centrum Silver] omeprazole 20 mg PO QAM 01/20/19 01/20/19 History simvastatin 20 mg PO QAM 01/20/19 01/20/19 History tamsulosin 0.4 mg PO HS 01/20/19 01/20/19 History warfarin See Rx Instructions .ROUTE .COMPLEX 01/20/19 01/20/19 History Patient History Medical History Atrial fibrillation with RVR (Resolved) HTN (hypertension) (Chronic) retirement (current) use of anticoagulants (Chronic) Dyslipidemia (Chronic) GERD (gastroesophageal reflux disease) (Chronic) Constipation (Chronic) PAF (paroxysmal atrial fibrillation) (Chronic) Hematuria Surgical History H/O hernia repair Family History Other Family history non-contributory Social History Preferred Language: Bengali Communication Ability: Effective Gasoline Tester Required: No Beliefs That Will Affect Care: None Current Living Situation: Family Other Information That Helps Us Care for You: No Feels Safe at Home: Yes Safety Concerns: Feels Safe At This Time Smoking Status: Former smoker Hx Alcohol Use: Yes Hx Substance Use: No Review of Systems Review of Systems: See HPI for pertinent positives. All other 10 point review of systems are negative. Physical Exam Vital Signs (Past 24 Hours): Last Vital Signs Temp 36.6 C 01/21/19 06:38 Pulse 52 L 01/21/19 06:38 Resp 19 01/21/19 06:38 BP 165/74 H 01/21/19 06:38 Pulse Ox 94 01/21/19 06:38 Physical Exam: General: The patient is alert but has short-term memory loss Head: normocephalic, no masses, lesions, tenderness or abnormalities Eyes: conjunctiva are pink and non-injected, sclera clear Neck: supple, no adenopathy, no bruits, normal jugular venous pulse, no hepatojugular reflux Chest: normal shape and normal respiratory effort Lungs: clear to auscultation and percussion Cardiac Exam: - regular rate & rhythm, no murmurs gallops or rubs - normal S1, normal S2 Pulses: 2(+) throughout Abdomen: abdomen soft, non-tender, no abnormal masses and no hepatosplenomegaly Musculoskeletal: no gait disturbance, no joint inflammation, no deforming arthritis Extremities: no edema and no cyanosis Neuro: grossly normal exam Results & Data Laboratory Results Laboratory Results - last 24 hr 01/20/19 01/20/19 01/20/19 19:05 19:10 19:10 WBC 4.33 L RBC 4.05 L Hgb 13.6 L Hct 40.0 L MCV 98.8 MCH 33.6 MCHC 34.0 RDW Std Deviation 49.3 H RDW Coeff of Anisa 13.5 Plt Count 152 MPV 11.3 H Immature Gran % (Auto) 0.0 Neut % (Auto) 56.6 Lymph % (Auto) 23.1 [place] % (Auto) 17.3 Eos % (Auto) 2.3 Baso % (Auto) 0.7 Immature Gran # (Auto) 0.00 Neut # (Auto) 2.45 Lymph # (Auto) 1.00 L [place] # (Auto) 0.75 H Eos # (Auto) 0.10 Baso # (Auto) 0.03 PT 31.2 H INR 3.3 H Sodium Potassium Chloride Carbon Dioxide Anion Gap BUN Creatinine Est Cr Clr Drug Dosing Est GFR ( Amer) Est GFR (Non-Af Amer) BUN/Creatinine Ratio Glucose Calcium Magnesium Total Bilirubin AST ALT Alkaline Phosphatase Troponin I Total Protein Albumin Globulin Albumin/Globulin Ratio TSH Urine Color Yellow Urine Appearance Clear Urine pH 7.5 Ur Specific [place] 1.013 Urine Protein Negative Urine Glucose (UA) Negative Urine Ketones Negative Urine Blood Negative Urine Nitrite Negative Urine Bilirubin Negative Urine Urobilinogen Negative Ur Leukocyte Esterase Negative 01/20/19 01/20/19 01/21/19 19:10 23:48 05:17 WBC RBC Hgb Hct MCV MCH MCHC RDW Std Deviation RDW Coeff of Anisa Plt Count MPV Immature Gran % (Auto) Neut % (Auto) Lymph % (Auto) [place] % (Auto) Eos % (Auto) Baso % (Auto) Immature Gran # (Auto) Neut # (Auto) Lymph # (Auto) [place] # (Auto) Eos # (Auto) Baso # (Auto) PT 31.4 H INR 3.3 H Sodium 144 Potassium 3.7 Chloride 111 H Carbon Dioxide 30 Anion Gap 3.0 BUN 11 Creatinine 0.86 Est Cr Clr Drug Dosing 100.4 Est GFR ( Amer) 98.3 Est GFR (Non-Af Amer) 84.8 BUN/Creatinine Ratio 12.2 Glucose 89 Calcium 8.1 L Magnesium 2.2 Total Bilirubin 0.4 AST 23 ALT 27 Alkaline Phosphatase 87 Troponin I < 0.015 0.022 Total Protein 6.3 L Albumin 3.2 L Globulin 3.1 Albumin/Globulin Ratio 1.0 TSH 4.410 Urine Color Urine Appearance Urine pH Ur Specific [place] Urine Protein Urine Glucose (UA) Urine Ketones Urine Blood Urine Nitrite Urine Bilirubin Urine Urobilinogen Ur Leukocyte Esterase 01/21/19 01/21/19 05:17 05:17 WBC 3.79 L RBC 3.68 L Hgb 12.2 L Hct 36.7 L MCV 99.7 MCH 33.2 MCHC 33.2 RDW Std Deviation 50.4 H RDW Coeff of Anisa 13.7 Plt Count 136 MPV 11.0 H Immature Gran % (Auto) 0.3 Neut % (Auto) 50.8 Lymph % (Auto) 25.6 [place] % (Auto) 18.5 Eos % (Auto) 4.0 Baso % (Auto) 0.8 Immature Gran # (Auto) 0.01 Neut # (Auto) 1.93 Lymph # (Auto) 0.97 L [place] # (Auto) 0.70 H Eos # (Auto) 0.15 Baso # (Auto) 0.03 PT INR Sodium 144 Potassium 3.6 Chloride 110 H Carbon Dioxide 31 Anion Gap 3.0 BUN 9 Creatinine 0.82 Est Cr Clr Drug Dosing 104.5 Est GFR ( Amer) 100.3 Est GFR (Non-Af Amer) 86.5 BUN/Creatinine Ratio 11.3 Glucose 81 Calcium 8.0 L Magnesium 2.2 Total Bilirubin AST ALT Alkaline Phosphatase Troponin I 0.024 Total Protein Albumin Globulin Albumin/Globulin Ratio TSH Urine Color Urine Appearance Urine pH Ur Specific [place] Urine Protein Urine Glucose (UA) Urine Ketones Urine Blood Urine Nitrite Urine Bilirubin Urine Urobilinogen Ur Leukocyte Esterase Medications Administered amiodarone 200 mg PO QAM 01/20/19 [History Confirmed 01/20/19] aspirin 81 mg PO QAM 01/20/19 [History Confirmed 01/20/19] donepezil 5 mg PO DAILY 01/20/19 [History Confirmed 01/20/19] enalapril maleate 20 mg PO BID 01/20/19 [History Confirmed 01/20/19] finasteride 5 mg PO QAM 01/20/19 [History Confirmed 01/20/19] metoprolol tartrate 37.5 mg PO BID 01/20/19 [History Confirmed 01/20/19] zhjuwwwi-jxy-QQ-lycopen-lutein [Centrum Silver] 1 tab PO QAM 01/20/19 [History Confirmed 01/20/19] omeprazole 20 mg PO QAM 01/20/19 [History Confirmed 01/20/19] simvastatin 20 mg PO QAM 01/20/19 [History Confirmed 01/20/19] tamsulosin 0.4 mg PO HS 01/20/19 [History Confirmed 01/20/19] warfarin See Rx Instructions .ROUTE .COMPLEX 01/20/19 [History Confirmed 01/20/19] Home Medications Acetaminophen (Tylenol) 650 mg PO Q4H PRN PRN Reason: Pain or Fever Stop: 02/19/19 23:34 Al Hydrox/Mg Hydrox/Simethicone (Maalox) 15 ml PO Q4H PRN PRN Reason: Dyspepsia Stop: 02/19/19 23:34 Am[facility] ([facility]one) [facility] [place] [facility] [place]: 02/20/19 08:59 Last Admin: 01/21/19 09:22 Dose: 200 mg Documented by: Aspirin (Ecotrin Ectab) 81 mg [facility] [place] [facility] [place]: 02/20/19 08:59 Last Admin: 01/21/19 09:21 Dose: 81 mg Documented by: Donepezil HCl (Aricept) 5 mg PO DAILY [facility] Stop: 02/20/19 08:59 Last Admin: 01/21/19 09:22 Dose: 5 mg Documented by: Enalapril Maleate (Vasotec) 20 mg PO BID [facility] Stop: 02/20/19 08:59 Last Admin: 01/21/19 09:22 Dose: 20 mg Documented by: Finasteride (Proscar) 5 mg PO QAM [facility] Stop: 02/20/19 08:59 Last Admin: 01/21/19 09:21 Dose: 5 mg Documented by: Metoprolol Tartrate (Lopressor) 37.5 mg PO BID [facility] Stop: 02/20/19 08:59 Last Admin: 01/21/19 09:23 Dose: 37.5 mg Documented by: Multivitamins/Minerals (Multivitamin W/ Minerals Tab) 1 tab [facility] [place]: 02/20/19 08:59 Last Admin: 01/21/19 09:22 Dose: 1 tab Documented by: Nitroglycerin (Nitrostat) 0.4 mg SL UD PRN PRN Reason: Chest Pain Stop: 02/19/19 23:34 Pantoprazole Sodium (Protonix) 40 mg PO [facility] Stop: 02/20/19 08:59 Last Admin: 01/21/19 09:23 Dose: 40 mg Documented by: Polyethylene Glycol (Miralax Powder Packet) 17 gm PO DAILY PRN PRN Reason: Constipation Stop: 02/19/19 23:34 Simvastatin (Zocor) 20 [facility] [place] [facility] [place]: 02/20/19 08:59 Last Admin: 01/21/19 09:21 Dose: 20 mg Documented by: Tamsulosin HCl (Flomax) 0.4 mg PO HS [facility] Stop: 02/20/19 20:59 Warfarin Sodium (Coumadin) 2 mg PO SuMoTuWeThFr@1600 [facility] Stop: 02/20/19 15:59 Warfarin Sodium (Coumadin) 4 mg PO Sa@1600 [facility] Stop: 02/26/19 15:59
--- NOTE | 2019-01-21 11:50 | Hospitalist Progress Note ---
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 (3) Urinary frequency: No urinary frequency since admission. Likely secondary to PAF (4) Dementia: The patient has early memory loss which may have contributed to his symptoms last night. No acute delirium We will discharge home this afternoon Subjective 01/21 The patient was seen and examined in telemetry unit This 73-year-old male with past medical history significant for hyperlipidemia, AFib, hypertension and constipation, who lives with his son, was brought in because of palpitations and irregular heart rate. Remains in controlled rate without any symptoms Urinary symptoms have improved and likely secondary to PAF Physical Exam Vital Signs (Past 24 Hours): Last Vital Signs Temp 36.5 C 01/21/19 10:50 Pulse 55 L 01/21/19 10:50 Resp 18 01/21/19 10:50 BP 150/79 H 01/21/19 10:50 Pulse Ox 95 01/21/19 10:50 Physical Exam: No apparent distress at rest Constitutional: WD/WN, vitals as above well developed, well nourished and + acute distress Eyes: PERRL, conjunctivae normal, anicteric sclerae ENMT: external ear and nose normal, oropharynx normal Neck: trachea midline, no thyromegaly Respiratory: normal respiratory effort Auscultation: lungs clear to auscultation bilaterally Cardiovascular: Rate/Rhythm: regular rate and regular rhythm Heart Sounds: normal S1 and normal S2 Gastrointestinal (Abdomen): normal bowel sounds, soft, nontender, no hepatosplenomegaly Neurologic: PERRL, EOMI, accommodation nl, no face palsy, no dysarthria Results & Data Laboratory Results Short CBC 01/20/19 01/21/19 Range/Units 19:10 05:17 WBC 4.33 L 3.79 L (4.8-10.8) K/uL Hgb 13.6 L 12.2 L (14.0-18.0) g/dL Hct 40.0 L 36.7 L (42-52) % Plt Count 152 136 (130-400) K/uL BMP 01/20/19 01/21/19 19:10 05:17 Sodium 144 144 Potassium 3.7 3.6 Chloride 111 H 110 H Carbon Dioxide 30 31 BUN 11 9 Creatinine 0.86 0.82 Glucose 89 81 Calcium 8.1 L 8.0 L Cardiac Enzymes 01/20/19 01/20/19 01/21/19 Range/Units 19:10 23:48 05:17 Troponin I < 0.015 0.022 0.024 (0-0.045) ng/ml Liver Function 01/20/19 Range/Units 19:10 Total Bilirubin 0.4 (0.2-1) mg/dl AST 23 (15-37) U/L ALT 27 (12-78) U/L Alkaline Phosphatase 87 (45-117) U/L Albumin 3.2 L (3.4-5.0) gm/dl Urine 01/20/19 Range/Units 19:05 Urine Color Yellow Urine Appearance Clear (Clear) Urine pH 7.5 (4.5-7.5) Ur Specific [place] 1.013 (1.000-1.030) Urine Protein Negative (Negative) Urine Glucose (UA) Negative (Negative) Medications Administered Current Inpatient Medications Acetaminophen (Tylenol) 650 mg PO Q4H PRN PRN Reason: Pain or Fever Stop: 02/19/19 23:34 Al Hydrox/Mg Hydrox/Simethicone (Maalox) 15 ml PO Q4H PRN PRN Reason: Dyspepsia Stop: 02/19/19 23:34 Amiodarone HCl (Cordarone) 200 mg PO QAM [facility] Stop: 02/20/19 08:59 Last Admin: 01/21/19 09:22 Dose: 200 mg Documented by: Aspirin (Ecotrin Ectab) 81 mg PO QAM [facility] Stop: 02/20/19 08:59 Last Admin: 01/21/19 09:21 Dose: 81 mg Documented by: Donepezil HCl (Aricept) 5 mg PO DAILY [facility] Stop: 02/20/19 08:59 Last Admin: 01/21/19 09:22 Dose: 5 mg Documented by: Enalapril Maleate (Vasotec) 20 mg PO BID [facility] Stop: 02/20/19 08:59 Last Admin: 01/21/19 09:22 Dose: 20 mg Documented by: Finasteride (Proscar) 5 mg PO QAM [facility] Stop: 02/20/19 08:59 Last Admin: 01/21/19 09:21 Dose: 5 mg Documented by: Metoprolol Tartrate (Lopressor) 37.5 mg PO BID [facility] Stop: 02/20/19 08:59 Last Admin: 01/21/19 09:23 Dose: 37.5 mg Documented by: Multivitamins/Minerals (Multivitamin W/ Minerals Tab) [facility] [place]: 02/20/19 08:59 Last Admin: 01/21/19 09:22 Dose: 1 tab Documented by: Nitroglycerin (Nitrostat) 0.4 mg SL UD PRN PRN Reason: Chest Pain Stop: 02/19/19 23:34 Pantoprazole Sodium (Protonix) 40 mg PO [facility] Stop: 02/20/19 08:59 Last Admin: 01/21/19 09:23 Dose: 40 mg Documented by: Polyethylene Glycol (Miralax Powder Packet) 17 gm PO DAILY PRN PRN Reason: Constipation Stop: 02/19/19 23:34 Simvastatin (Zocor) 20 mg PO QAM [facility] Stop: 02/20/19 08:59 Last Admin: 01/21/19 09:21 Dose: 20 mg Documented by: Tamsulosin HCl (Flomax) 0.4 mg PO HS [facility] Stop: 02/20/19 20:59 Warfarin Sodium (Coumadin) 2 mg PO SuMoTuWeThFr@1600 [facility] Stop: 02/20/19 15:59 Warfarin Sodium (Coumadin) 4 mg PO Sa@1600 [facility] Stop: 02/26/19 15:59
[2019-01-21] MEDS ORDERED: WARFARIN SOD 2 MG TAB PO SCH (16:00)
[2019-01-21] MEDS ORDERED: TAMSULOSIN HCL 0.4 MG CAP PO SCH (21:00)
--- NOTE | 2019-01-22 07:19 | Discharge Summary ---
Date of Service January 24, 2019 Admission HPI Per Admitting Provider DICTATED BY: Stoney Garcia MD DATE OF ADMISSION: 01/20/2019 CHIEF COMPLAINT: Some palpitations, some increased urinary frequency. HISTORY OF PRESENT ILLNESS: This 73-year-old male with past medical history significant for hyperlipidemia, AFib, hypertension and constipation, who lives with his son, was brought in because of palpitations and irregular heart rate. When son came to the house, the patient complained of increased frequency of the urine and when checked the blood pressure was high in the 180s, when he checked his pulse, heart was irregular. Son used to work in the hospital at [facility] before and at that time he decided to take the patient to the hospital. UA is negative in the hospital, but his heart rate is in atrial flutter. Heart rate is going up and down, seemed to be trying to convert to sinus rhythm and becomes bradycardic in 50s, but not getting converted and again going back into 70s. Currently, resting comfortably and hemodynamically stable. Denies any chest pain. No nausea. No sweating. No shortness of breath. No headache. No blurred visions. No runny nose. No sore throat. No difficulty swallowing. Appetite is okay. No abdominal pain. Normal bowel and bladder movements. No blood in the stool. No black stools. No hematuria. No burning micturition. Usually ambulates without any help. Discharge Data Consultations 01/20/19 21:51 ED Decision to Admit Stat 01/20/19 23:35 Consult Case Management - Discharge Planning Routine 01/21/19 08:00 Consult Cardiology Routine
--- NOTE | 2019-01-22 08:19 | Discharge Summary ---
Date of Service January 22, 2019 Admission HPI Per Admitting Provider DICTATED BY: Stoney Garcia MD DATE OF ADMISSION: 01/20/2019 CHIEF COMPLAINT: Some palpitations, some increased urinary frequency. HISTORY OF PRESENT ILLNESS: This 73-year-old male with past medical history significant for hyperlipidemia, AFib, hypertension and constipation, who lives with his son, was brought in because of palpitations and irregular heart rate. When son came to the house, the patient complained of increased frequency of the urine and when checked the blood pressure was high in the 180s, when he checked his pulse, heart was irregular. Son used to work in the hospital at [facility] before and at that time he decided to take the patient to the hospital. UA is negative in the hospital, but his heart rate is in atrial flutter. Heart rate is going up and down, seemed to be trying to convert to sinus rhythm and becomes bradycardic in 50s, but not getting converted and again going back into 70s. Currently, resting comfortably and hemodynamically stable. Denies any chest pain. No nausea. No sweating. No shortness of breath. No headache. No blurred visions. No runny nose. No sore throat. No difficulty swallowing. Appetite is okay. No abdominal pain. Normal bowel and bladder movements. No blood in the stool. No black stools. No hematuria. No burning micturition. Usually ambulates without any help. Admission Exam Per Admitting Provider GENERAL: The patient is of moderate build, not in acute distress. VITAL SIGNS: Temperature 36.9, pulse 51, respiratory rate 16, blood pressure 133/71 and oxygen 97% on room air. HEENT: No pallor. No icterus. Pupils equal, round and react to light. NECK: No JVD. No neck masses. No carotid bruits. CARDIOVASCULAR: S1, S2 heard. Bradycardia. No murmurs. RESPIRATORY SYSTEM: Normal AP diameter. No accessory muscle use. No wheezing. No crackles. ABDOMEN: Soft. Bowel sounds present. Nontender. No distention. CENTRAL NERVOUS SYSTEM: Cranial nerves II through XII grossly intact. Nonfocal. EXTREMITIES: Bilateral lower extremity +2 pedal edema present. Principal Diagnosis Paroxysmal atrial fibrillation, hypertension Discharge Exam Constitutional WD/WN, vitals as above well developed, well nourished and + acute distress Eyes PERRL, conjunctivae normal, anicteric sclerae ENMT external ear and nose normal, oropharynx normal Neck trachea midline, no thyromegaly Respiratory normal respiratory effort Auscultation: lungs clear to auscultation bilaterally Cardiovascular Rate/Rhythm: regular rate and regular rhythm Heart Sounds: normal S1 and normal S2 Gastrointestinal (Abdomen) normal bowel sounds, soft, nontender, no hepatosplenomegaly Neurologic PERRL, EOMI, accommodation nl, no face palsy, no dysarthria Discharge Data Allergies Allergy/AdvReac Type Severity Reaction Status Date / Time Penicillins Allergy Unknown Rash Verified 01/20/19 19:45 Consultations 01/20/19 21:51 ED Decision to Admit Stat 01/20/19 23:35 Consult Case Management - Discharge Planning Routine 01/21/19 08:00 Consult Cardiology Routine Hospital Course (1) PAF (paroxysmal atrial fibrillation): Admitted with the palpitation and increased urination likely secondary Did not have any chest pain and cardiac enzymes have been negative Heart rate remains controlled and has been on amiodarone Appreciate cardiology input and recommendation Likely be discharged this afternoon (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 (3) Urinary frequency: No urinary frequency since admission. Likely secondary to PAF (4) Dementia: The patient has early memory loss which may have contributed to his symptoms last night. No acute delirium We will discharge home this afternoon Total Time Total Time Spent Total Time Spent (In Minutes): 35 minutes Total Time Includes: Examination of the Patient, Discharge Planning, Medication Reconciliation and Communication With Other Providers Discharge Plan Discharge Items Patient Disposition: Home - Self-Care Reason For Visit: HYPERTENTION,IRREGULAR HEART BEAT Discharge Diagnosis: Paroxysmal atrial fibrillation, hypertension Condition: Good Discharge Goals: Decrease discomfort, Improve function and Increase independence Activity: Resume your previous activity Non-emergency contact: Primary Care Provider Call non-emergency contact if: you have any medication questions and your symptoms worsen Follow-up/Referrals: Jakob Ramos MD [Primary Care Provider] - (Will be called with an appointment with your primary care provider. 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) Diet: Heart Healthy Addtl Provider Instructions: Try to avoid excessive coffee and/or alcohol Prescriptions: Continued donepezil 5 mg tablet 5 mg PO DAILY RF: 0 amiodarone 200 mg tablet 200 mg PO QAM RF: 0 enalapril maleate 20 mg tablet 20 mg PO BID RF: 0 aspirin 81 mg Tablet,Delayed Release (Dr/Ec) 81 mg PO QAM RF: 0 tamsulosin 0.4 mg capsule 0.4 mg PO HS RF: 0 simvastatin 20 mg tablet 20 mg PO QAM RF: 0 warfarin 2 mg tablet See Rx Instructions .ROUTE .COMPLEX RF: 0 finasteride 5 mg tablet 5 mg PO QAM RF: 0 metoprolol tartrate 25 mg tablet 37.5 mg PO BID RF: 0 Centrum Silver 0.4-300-250 mg-mcg-mcg Tablet 1 tab PO QAM RF: 0 omeprazole 20 mg Tablet,Delayed Release (Dr/Ec) 20 mg PO QAM RF: 0 Stand-Alone Forms: [facility] Discharge Orders: Discharge Order (Routine); Ordered 01/21/19 Ordered By: Rossi Costa Admission Data Admit Date/Time: 01/20/19 22:58 Attending Provider: Rossi Costa Admit Provider: Stoney Garcia Primary Care Provider: Jakob Ramos Other Providers: Stoney Garcia ; Eric Cifuentes ; Collins Dillard ; Kang Todd ; Rafiq Wright ; Travis Alejo ; Stef Snyder ; Samantha Jasso ; Arline Bill Service: Telemetry Other Interventions: Discharge Summary Assessment (RN) Last Done: 01/21/19 13:22 DC Date/Time DO NOT enter until pt leaves facility: 01/21/19 14:22
[2019-01-27] MEDS ORDERED: WARFARIN SOD 4 MG TAB PO SCH (16:00)
== END 2019-01-21 14:22 | disposition home or self-care (01) ==
LOC: ED 18:43 → 2S 18:43

== ENCOUNTER 2020-02-05 00:39 | Inpatient (IN) ==
--- OUTSIDE RECORDS SUMMARY | 2020-02-05 00:40 | External Medical Summary | Continuity of Care Document ---
:1945 Author Name Adelina Fernandez Address Unavailable Unavailable , Care Team Providers Name Role Phone Unavailable Unavailable Unavailable PCP, UNKNOWN Unavailable Unavailable Problems Active medical history not documented Allergies and Adverse Reactions Allergy history not documented Medications Medications not documented Procedures Procedures not documented Immunizations Immunizations not documented Plan of Treatment Planned Observations Planned Goals not documented Results No Known Results Results not documented
[2020-02-05] MEDS ORDERED: SODIUM CHLORIDE 0.9% 250 ML IV PRN (00:49)
[2020-02-05] MEDS ORDERED: SODIUM CHLORIDE 0.9% 1000ML 500 ML IV ONE (00:50)
--- NOTE | 2020-02-05 00:57 | Emergency Department Note ---
Impression & Plan Acute GI bleeding, Elevated INR, Acute hypotension ED Provider Note Name: WINSOME APONTE Age: 74 Sex: M Arrives Via: Walk-In Informant: Patient, Son ED Provider: Melo Dias MD Chief Complaint: Rectal Bleed Impression: Acute GI Bleeding Elevated INR Acute Hypotension Medical Decision Makin yr old male with PAF on coumadin arrives with heavy rectal bleeding at home and hypotensive on arrival. Pale appearing but BP improved significantly and lightheadedness resolved just with laying back and small bolus NSS.Patient breathing comfortably, no evidence ischemia on EKG, and abdomen is soft, non- tender. No recent abx use nor change in diet, and he denies accidentally taking too much Coumadin, but INR is significantly elevated at > 9.7. He does not have further bleeding at this time, BP has been stable after initial hypotension, thus will given 10mg IV Vit K and hold off on Kcentra the current time. He furthermore has history of GERD thus will give bolus of Protonix as well. HgB currently OK though would suspect it will drop some given his examination and amount of bleeding prior to arrival. Will hold off on transfusion for now though I did crossmatch for 2 Units in preparation. Hospitalist consulted further management. Prior Medical Record and Triage/Nursing Notes reviewed by Me Additional history obtained from chart Differentials:Diverticulosis, AVM, coagulopathy, colitis, inflammatory bowel disease, malignancy, Alejandra-Reddy tear, esophagitis, peptic ulcer disease, variceal bleed, gastritis, epistaxis, fissure, hemorrhoids, as well as other pathologies. Vital Signs: reviewed and remarkable for Hypotension on arrival Interventions: Saline Lock, NSS bolus 500mL IV, Vit K 10mg IV, Protonix 80mg IV Labs:Reviewed and remarkable for elevated INT Imaging:None EKG:Per My Interpretation: Indication Weakness: NSR with PVC 64 bpm, qtc 548, RBBB no acute ischemia/stemi. Compared to EKG 01/17/19, no significant changes. Cardiac/Tele Monitoring: Cardiac Monitoring: An Order was placed for continuous cardiac monitoring. The monitor shows a rate of 60 with a normal sinus rhythm. Consults:Dr Jose Marks hospitalist for admission Plan: Disposition:Hospitalization. Home. Condition: Fair Blood pressure:Normal.No Referral necessary History of Present Illness:74 / M arrives for evaluation of gi bleed. Patient notes he was feeling well the last few days. Tonight he notes he was sitting on his couch and developed bleeding from his rectum. Notes heavy bleeding and soaking through his pants. Associated with lightheadedness and weakness. Denies cp, sob, back pain, abdominal pain, syncope, nausea, vomiting, fevers, chills, leg swelling, bruising nor other symptoms. Standing makes worse, laying flat makes better. No medications taken prior to arrival. He is on aspirin 81mg daily and coumadin. He has a history of Afib as well as PUD. ROS: See above HPI for pertinent positives & negatives. A total of 10 systems reviewed and were otherwise negative. Past Medical History:PAF, Dementia, HTN, Dyslipidemia, GERD, Constipation, prostate enlargement Past Surgical History:Hernia repair Family History:Non-contributory Social History:Lives with family, smokes pipes, occasion beer, no drugs, retired Home Medications:Amiodarone, aspirin, centrum, donepezil, enalapril, finasteride, metoprolol, omeprazole, simvastatin, warfarin Allergies:[facility] Vitals:Blood Pressure: 76/46, Pulse 65, RR 22, T 36.4C, O2 98% on RA Physical Exam: GENERAL: Patient is tired appearing and in mild distress. Pale appearing EYES: Pale conjunctiva, No scleral icterus, unremarkable pupils. ENT: Mucous membranes moist, no nasal congestion. NECK: No masses appreciated, nomeningismus, trachea is midline. RESPIRATORY: No dyspnea. Clear to auscultation and equal bilaterally. No wheeze, no rhonchi. CARDIOVASCULAR: Regular rate and rhythm.No murmurs, rubs, gallops appreciated. GASTROINTESTINAL: Abdomen soft, non-tender, no peritonitis.Bowel sounds positive.No masses appreciated. BACK: No midline tenderness, no CVA tenderness EXTREMITIES: Normal motion all extremities, no cyanosis, mild bilateral leg edema. NEUROLOGIC: Alert and oriented, no acute motor or sensory deficits, no focal weakness, cranial nerves grossly intact. SKIN: No rash, no jaundice, no diaphoresis. PSYCH: Appropriate GCS: 15 ED Course: Times/Reassessments: Multiple close monitoring and patient stable after initial bolus. Feeling better and even joking with staff. Agreeable to hospitalization Critical Care: I have personally spent 35 minutes of critical care time in the direct management of this patient. Acute GI bleed with Hypotension requiring IV Vit K and fluid resus. This was a life/limb threatening event. This 35 minutes is in excess of all separately billable procedures. Melo Dias MD Past Med/Surg History Social History Preferred Language: Micronesian Communication Ability: Effective Can Tender Required: No Beliefs That Will Affect Care: None Current Living Situation: Alone Other Information That Helps Us Care for You: No Feels Safe at Home: No Is there a partner from a previous relationship who is making you feel unsafe now?: No Any Concerns about Your Family Situation: No Would You Like to Speak to Someone About Your Situation: No Safety Concerns: Feels Safe At This Time and Afraid for Self Smoking Status: Former smoker Tobacco Type: pipe ; Second Hand Exposure: No ; Hx Alcohol Use: Yes Alcohol type: beer Hx Substance Use: No Allergies Allergies Allergy/AdvReac Type Severity Reaction Status Date / Time Penicillins Allergy Unknown Rash Verified 02/05/20 01:48 Home Meds Home Medications Medication Instructions Recorded Confirmed Centrum Silver 1 tab PO QAM 01/20/19 02/05/20 amiodarone 200 mg PO QAM 01/20/19 02/05/20 aspirin 81 mg PO QAM 01/20/19 02/05/20 donepezil 5 mg PO DAILY 01/20/19 02/05/20 enalapril maleate 20 mg PO BID 01/20/19 02/05/20 finasteride 5 mg PO QAM 01/20/19 02/05/20 metoprolol tartrate 37.5 mg PO BID 01/20/19 02/05/20 omeprazole 20 mg PO QAM 01/20/19 02/05/20 simvastatin 20 mg PO QAM 01/20/19 02/05/20 tamsulosin 0.4 mg PO HS 01/20/19 02/05/20 warfarin See Rx Instructions .ROUTE .COMPLEX 01/20/19 02/05/20 Results & Data (ED) Vital Signs Vital Signs - 24 hr 02/05/20 00:40 02/05/20 00:59 02/05/20 01:16 Temperature 36.4 C L Temperature Source Oral Pulse Rate 65 Pulse Rate [Bilateral Apical] 57 L 55 L Respiratory Rate 22 20 20 Respiratory Effort / Characteristics Non-Labored Respiratory Depth Normal Blood Pressure 76/46 L Blood Pressure [Right Arm] 92/66 L 125/62 Blood Pressure Mean 56 Blood Pressure Mean [Right Arm] 74 83 Blood Pressure Position Sitting Pulse Oximetry 98 98 98 Oxygen Delivery Method Room Air Room Air Room Air Sepsis Recent Fever Within 48 Hours No Sepsis Action Taken by Nursing No Action Required 02/05/20 01:48 02/05/20 02:01 02/05/20 02:34 Temperature Temperature Source Pulse Rate Pulse Rate [Bilateral Apical] 55 L 55 L 55 L Respiratory Rate 20 20 18 Respiratory Effort / Characteristics Non-Labored Non-Labored Respiratory Depth Normal Normal Blood Pressure Blood Pressure [Right Arm] 124/64 115/61 106/67 Blood Pressure Mean Blood Pressure Mean [Right Arm] 84 79 80 Blood Pressure Position Pulse Oximetry 96 95 98 Oxygen Delivery Method Room Air Room Air Room Air Sepsis Recent Fever Within 48 Hours Sepsis Action Taken by Nursing Laboratory Data Result diagrams: 02/05/20 05:21 02/05/20 00:53 Lab Results 02/05/20 02/05/20 02/05/20 Range/Units 00:53 00:53 00:53 WBC 6.24 (4.8-10.8) K/uL RBC 3.26 L (4.7-6.1) M/uL Hgb 10.8 L (14.0-18.0) g/dL POC Hgb (14.0-18.0) g/dl Hct 32.8 L (42-52) % POC Hct (42-52) % MCV 100.6 H (80-100) fL MCH 33.1 (25-34) pg MCHC 32.9 (32-36) g/dL RDW Std Deviation 53.1 H (36.4-46.3) fL RDW Coeff of Anisa 14.4 (11.5-14.5) % Plt Count 195 (130-400) K/uL MPV 11.4 H (7.4-10.4) fL Immature Gran % (Auto) 0.2 % Neut % (Auto) 67.4 % Lymph % (Auto) 18.8 % [place] % (Auto) 11.2 % Eos % (Auto) 1.8 % Baso % (Auto) 0.6 % Immature Gran # (Auto) 0.01 (0.00-0.02) K/uL Neut # (Auto) 4.21 (1.4-6.5) K/uL Lymph # (Auto) 1.17 L (1.2-3.4) K/uL [place] # (Auto) 0.70 H (0.11-0.59) K/uL Eos # (Auto) 0.11 (0-0.5) K/uL Baso # (Auto) 0.04 (0-0.2) K/uL PT > 90.0 H (9.0-12.0) Seconds INR > 9.7 H* (0.9-1.1) APTT 44.9 H (21.0-31.0) Seconds PTT Ratio 1.6 POC Sodium (135-144) mmol/L Sodium (136-145) mmol/L POC Potassium (3.3-5.0) mmol/L Potassium (3.5-5.1) mmol/L POC Chloride (101-112) mmol/L Chloride (98-107) mmol/L Carbon Dioxide (21-32) mmol/L POC Total CO2 (24-31) mEq/l Anion Gap (3-11) POC Anion Gap (16-25) mmol/L POC BUN (7-18) mg/dl BUN (7-18) mg/dl Creatinine (0.6-1.4) mg/dl POC Creatinine (0.6-1.3) mg/dl Est Cr Clr Drug Dosing Est GFR ( Amer) Est GFR (Non-Af Amer) BUN/Creatinine Ratio (10-20) Glucose (70-99) mg/dl POC Glucose (other) (70-99) mg/dl Calcium (8.5-10.1) mg/dl POC Ioniz Calcium Breanne (1.12-1.32) mmol/l Total Bilirubin (0.2-1) mg/dl Direct Bilirubin (0-0.2) mg/dl AST (15-37) U/L ALT (12-78) U/L Alkaline Phosphatase (45-117) U/L Troponin I (0-0.045) ng/ml Total Protein (6.4-8.2) gm/dl Albumin (3.4-5.0) gm/dl Blood Type A Positive Antibody Screen NEGATIVE Crossmatch See Detail 02/05/20 02/05/20 Range/Units 00:53 01:07 WBC (4.8-10.8) K/uL RBC (4.7-6.1) M/uL Hgb (14.0-18.0) g/dL POC Hgb 9.5 L (14.0-18.0) g/dl Hct (42-52) % POC Hct 28 L (42-52) % MCV (80-100) fL MCH (25-34) pg MCHC (32-36) g/dL RDW Std Deviation (36.4-46.3) fL RDW Coeff of Anisa (11.5-14.5) % Plt Count (130-400) K/uL MPV (7.4-10.4) fL Immature Gran % (Auto) % Neut % (Auto) % Lymph % (Auto) % [place] % (Auto) % Eos % (Auto) % Baso % (Auto) % Immature Gran # (Auto) (0.00-0.02) K/uL Neut # (Auto) (1.4-6.5) K/uL Lymph # (Auto) (1.2-3.4) K/uL [place] # (Auto) (0.11-0.59) K/uL Eos # (Auto) (0-0.5) K/uL Baso # (Auto) (0-0.2) K/uL PT (9.0-12.0) Seconds INR (0.9-1.1) APTT (21.0-31.0) Seconds PTT Ratio POC Sodium 143 (135-144) mmol/L Sodium 146 H (136-145) mmol/L POC Potassium 3.4 (3.3-5.0) mmol/L Potassium 3.4 L (3.5-5.1) mmol/L POC Chloride 111 (101-112) mmol/L Chloride 115 H (98-107) mmol/L Carbon Dioxide 25 (21-32) mmol/L POC Total CO2 22 L (24-31) mEq/l Anion Gap 5.0 (3-11) POC Anion Gap 14.0 L (16-25) mmol/L POC BUN 15 (7-18) mg/dl BUN 15 (7-18) mg/dl Creatinine 0.94 (0.6-1.4) mg/dl POC Creatinine 0.9 (0.6-1.3) mg/dl Est Cr Clr Drug Dosing Not Reportable Est GFR ( Amer) 90.9 Est GFR (Non-Af Amer) 78.4 BUN/Creatinine Ratio 15.8 (10-20) Glucose 129 H (70-99) mg/dl POC Glucose (other) 131 H (70-99) mg/dl Calcium 7.9 L (8.5-10.1) mg/dl POC Ioniz Calcium Breanne 1.09 L (1.12-1.32) mmol/l Total Bilirubin 0.5 (0.2-1) mg/dl Direct Bilirubin 0.2 (0-0.2) mg/dl AST 19 (15-37) U/L ALT 24 (12-78) U/L Alkaline Phosphatase 80 (45-117) U/L Troponin I 0.039 (0-0.045) ng/ml Total Protein 5.1 L (6.4-8.2) gm/dl Albumin 2.4 L (3.4-5.0) gm/dl Blood Type Antibody Screen Crossmatch Administered Medications Pantoprazole Sodium 40 mg/ (Dextrose) 100 mls @ 20 mls/hr IV Q5H HARLAN Stop: 03/06/20 03:14 Last Admin: 02/05/20 04:15 Dose: 8 mg/hr, 20 mls/hr Documented by: [id number] Sodium Chloride (Nss 1000ml) 1,000 mls @ 80 mls/hr IV .[id number] HARLAN Stop: 03/06/20 03:28 Last Admin: 02/05/20 03:30 Dose: 80 mls/hr Documented by: [id number] Discontinued Medications Sodium Chloride (Nss 1000ml) 500 mls @ 999 mls/hr IV .[id number] ONE Stop: 02/05/20 01:20 Last Infusion: 02/05/20 01:34 Dose: 0 mls/hr Documented by: [id number] Admin: 02/05/20 01:02 Dose: 999 mls/hr Documented by: [id number] Phytonadione 10 mg/ Sodium (Chloride) 51 mls @ 102 mls/hr IV ONE ONE Stop: 02/05/20 02:18 Last Infusion: 02/05/20 02:35 Dose: 0 mls/hr Documented by: [id number] Admin: 02/05/20 02:00 Dose: 102 mls/hr Documented by: [id number] Pantoprazole Sodium 80 mg/ (Dextrose) 100 mls @ 400 mls/hr IV ONE STA Stop: 02/05/20 02:10 Last Infusion: 02/05/20 02:35 Dose: 0 mls/hr Documented by: [id number] Admin: 02/05/20 02:13 Dose: 400 mls/hr Documented by: [id number] Discharge Plan Visit Data *Final* Discharge Date/Time: 02/05/20 02:57 Chief Complaint: Rectal Bleed Stated Complaint: BLEEDING FROM RECTUM ED Provider: Melo Dias Discharge Problem: Acute GI bleeding, Elevated INR, Acute hypotension Patient Disposition: Admitted As Inpatient Discharge Instructions Interventions: ED Discharge Assessment Last Done: 02/05/20 02:57
[2020-02-05 01:20] LABS: iSTAT Creatinine 0.9 mg/dl (0.6-1.3); iSTAT Hemoglobin 9.5 g/dl (14.0-18.0); iSTAT Ionized Calcium 1.09 mmol/l (1.12-1.32); iSTAT Potassium 3.4 mmol/L (3.3-5.0)
[2020-02-05 01:20] LABS: Basophils # (auto) 0.04 K/uL (0-0.2); Basophils % (auto) 0.6 %; Eosinophils # (auto) 0.11 K/uL (0-0.5); Eosinophils % (auto) 1.8 %; Hematocrit (blood only) 32.8 % (42-52); Hemoglobin 10.8 g/dL (14.0-18.0); Immature Granulocytes # (auto) 0.01 K/uL (0.00-0.02); Immature Granulocytes % (auto) 0.2 %; Lymphocytes # (auto) 1.17 K/uL (1.2-3.4); Lymphocytes % (auto) 18.8 %; Mean Corpuscular Hemoglobin 33.1 pg (25-34); Mean Corpuscular Hgb Conc 32.9 g/dL (32-36); Mean Corpuscular Volume 100.6 fL (80-100); Mean Platelet Volume 11.4 fL (7.4-10.4); Monocytes % (auto) 11.2 %; Neutrophils # (auto) 4.21 K/uL (1.4-6.5); Neutrophils % (auto) 67.4 %; Platelet Count 195 K/uL (130-400); RDW Coefficient of Variation 14.4 % (11.5-14.5); RDW Standard Deviation 53.1 fL (36.4-46.3); Red Blood Count 3.26 M/uL (4.7-6.1); White Blood Count 6.24 K/uL (4.8-10.8)
[2020-02-05 01:37] LABS: Alanine Aminotransferase 24 U/L (12-78); Albumin Level 2.4 gm/dl (3.4-5.0); Aspartate Aminotransferase 19 U/L (15-37); BUN Creatinine Ratio 15.8 (10-20); Bilirubin Direct 0.2 mg/dl (0-0.2); Blood Urea Nitrogen 15 mg/dl (7-18); Calcium 7.9 mg/dl (8.5-10.1); Carbon Dioxide 25 mmol/L (21-32); Chloride 115 mmol/L (98-107); Est GFR (African American) 90.9; Est GFR (Non-African American) 78.4; Glucose 129 mg/dl (70-99); Potassium 3.4 mmol/L (3.5-5.1); Sodium 146 mmol/L (136-145)
[2020-02-05 01:38] LABS: Partial Thromboplastin Ratio 1.6; Partial Thromboplastin Time 44.9 Seconds (21.0-31.0); Prothrombin Time > 90.0 Seconds (9.0-12.0)
[2020-02-05 01:42] LABS: Alkaline Phosphatase 80 U/L (45-117); Bilirubin,Total 0.5 mg/dl (0.2-1); Total Protein 5.1 gm/dl (6.4-8.2); Troponin I 0.039 ng/ml (0-0.045)
[2020-02-05 01:47] LABS: INR > 9.7 (0.9-1.1)
[2020-02-05] MEDS ORDERED: PHYTONADIONE 10 MG in SODIUM CHLORIDE 0.9% 50 ML IV ONE (01:49)
[2020-02-05] MEDS ORDERED: PANTOprazole 80 MG in DEXTROSE 5% 100 ML IV STA (01:56)
[2020-02-05] MEDS ORDERED: NITROGLYCERIN SL 0.4 MG/TAB TAB SL PRN (03:29)
[2020-02-05] MEDS ORDERED: ACETAMINOPHEN 325 MG TAB PO PRN (03:29)
[2020-02-05] MEDS ORDERED: ONDANSETRON INJ 2 MG/ML 2 ML VIAL IV PRN (03:29)
[2020-02-05] MEDS: SODIUM CHLORIDE 0.9% 1000ML 1,000 ML IV SCH ×2 (03:30→15:42)
[2020-02-05] MEDS: PANTOprazole 40 MG in DEXTROSE 5% 100 ML IV SCH ×5 (04:15→22:40)
--- NOTE | 2020-02-05 05:03 | History and Physical Report ---
DATE OF ADMISSION: 02/05/2020 CHIEF COMPLAINT: Rectal bleed. HISTORY OF PRESENT ILLNESS: This is a 74-year-old male with past medical history significant for paroxysmal atrial fibrillation on Coumadin, hyperlipidemia, hypertension, constipation, has some mild dementia, lives alone. hx of moderate aortic stenosis. Says son is no longer living with him, the son used to work in the hospital. 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 Comes here because of rectal bleed. The patient says he was sitting on the chair and he noticed blood coming from his rectum, significant amount so he came to the ER. Currently, it seems to be stopped, but his INR was elevated greater than 9.7. He was given IV vitamin K. His hemoglobin is 10.8, was 12.2 on 01/22/2020. Denies any abdominal pain, no nausea, no vomiting. Denies any chest pain, no shortness of breath, no cough, no fever, no chills, no headache, no blurred vision, no dizziness, no earache, no runny nose, no sore throat, no difficulty swallowing. Appetite is okay. Ambulating okay. Normal bladder movements. No hematuria. Has chronic swelling in the lower extremities. Walks without any support. Drives his own car. Currently resting comfortably and hemodynamically stable. ALLERGIES: PENICILLIN. PAST MEDICAL HISTORY: As mentioned above. PAST SURGICAL HISTORY: Colonoscopy, cystoscopy, tonsillectomy, adenoidectomy, repair of inguinal hernia. MEDICATIONS: The patient currently on amiodarone 200 mg p.o. a.m., aspirin 81 mg p.o. a.m., Centrum Silver 1 tablet p.o. a.m., donepezil 5 mg p.o. daily, enalapril 20 mg p.o. b.i.d., finasteride 5 mg p.o. a.m., metoprolol tartrate 37.5 mg p.o. b.i.d., omeprazole 20 mg p.o. a.m., simvastatin 20 mg p.o. a.m., Flomax 0.4 mg at bedtime, Coumadin as directed. FAMILY HISTORY: Significant for mother had Alzheimer's disease. SOCIAL HISTORY: , lives alone. Smoked pipe. Former smoker. Alcohol occasional. No drug use. REVIEW OF SYMPTOMS: As per HPI. Rest of review of symptoms negative. PHYSICAL EXAMINATION: GENERAL: The patient is of moderate build, not in acute distress. VITAL SIGNS: Temperature 36.4, pulse 55, respiratory rate 18, blood pressure 106/67, oxygen 98% on room air. HEENT: Pupils equal, round, reactive to light. Extraocular muscles intact. NECK: No JVD, no neck masses. CARDIOVASCULAR: S1, S2 heard, regular rate and rhythm, no murmur, no gallop. RESPIRATORY SYSTEM: Normal AP diameter. No accessory muscle use. No wheezing, no crackles. ABDOMEN: Soft, bowel sounds present, nontender. No distention. CENTRAL NERVOUS SYSTEM: Cranial nerves II-XII grossly intact, nonfocal. EXTREMITIES: Bilateral lower extremity +2 edema present. LABORATORY DATA: WBC 6.24, hemoglobin 10.8, hematocrit 32.8, platelets 195. PT greater than 90, INR greater than 9.7, APTT 44.9. Sodium 146, potassium 3.4, chloride 115, CO2 25, BUN 15, creatinine 0.9, serum glucose 129, calcium 7.9, ionized calcium 1.09, total bilirubin 0.5, direct bilirubin 0.2, AST 19, ALT 24, alkaline phosphatase 82. Troponin I 0.032. Albumin 2.4. EKG: Sinus rhythm with occasional PVCs at a rate of 64, right bundle branch block. ASSESSMENT AND PLAN: This is a 74-year-old male who presents with rectal bleed. 1. Rectal bleed, elevated INR greater than 9.7. Coumadin and aspirin is held, IV vitamin K 10 mg given in the ER. Hemoglobin is 10.8, hemodynamically stable. Hemoglobin is 12.2 from last admission on 01/22/2020, got blood consents signed. H and H q. 6 hours, will transfuse if hemoglobin further drops down, started Protonix drip. GI consult in a.m. Keep him n.p.o., IV fluids Normal saline at rate at 80 mL per hour. Close monitor. 2. History of paroxysmal atrial fibrillation, rate controlled on amiodarone and Lopressor;.Aspirin and Coumadin held for rectal bleed. 3. Dementia: On donepezil. 4. History of hypertension, on enalapril and Lopressor. We will monitor the blood pressure. 5. History of BPH: On Flomax. 6. Hyperlipidemia. On statin. 7. History of PPI, currently on Protonix drip. 8. History of chronic diastolic congestive heart failure, From ,has lower extremity edema, getting fluids. Monitor for any volume overload. 9. Deep venous thrombosis prophylaxis: Sequential compression devices for now. 10. Disposition: Closely monitor in tele floor. Level 1 full code. PT and OT prior to discharge. Social Service to help with discharge planning. [id number]
[2020-02-05 05:44] LABS: Hematocrit (blood only) 27.5 % (42-52); Hemoglobin 9.2 g/dL (14.0-18.0)
[2020-02-05 06:19] LABS: INR 3.6 (0.9-1.1); Prothrombin Time 35.2 Seconds (9.0-12.0)
[2020-02-05 06:37] LABS: BUN Creatinine Ratio 18.3 (10-20); Calcium 7.8 mg/dl (8.5-10.1); Creatinine Clr Calc Pharmacy 88.5 ml/min; Est GFR (African American) 92.1; Est GFR (Non-African American) 79.5; Magnesium 2.1 mg/dl (1.8-2.4); Potassium 3.5 mmol/L (3.5-5.1)
[2020-02-05] MEDS: FINASTERIDE 5 MG TAB PO SCH (07:27)
[2020-02-05] MEDS: SIMVASTATIN 20 MG TAB PO SCH (07:27)
[2020-02-05] MEDS: METOPROLOL TARTRATE 25 MG TAB PO SCH ×2 (07:27→21:12)
[2020-02-05] MEDS: AMIODARONE 200 MG TAB PO SCH (07:28)
[2020-02-05] MEDS: DONEPEZIL HCL 5 MG TAB PO SCH (07:28)
[2020-02-05] MEDS: CEROVITE ADV FORMULA TAB PO SCH (07:28)
[2020-02-05] MEDS: ENALAPRIL MALEATE 10 MG TAB PO SCH ×2 (07:28→21:15)
--- NOTE | 2020-02-05 07:33 | Gastrointestinal Consultation ---
Date of Consultation February 05, 2020 Assessment & Plan (1) Acute GI bleedin74 year old male with history of dementia, HTN, dyslipidemia, COPD, afib on coumadin and others below admitted through the ED with elevated INR > 9 and intermittent painless rectal bleeding starting 4-5 days ago. He denies abd pain/cramping, rectal pain/pressure or prior episodes of melena, hematemesis, coffee ground emesis. He received Vit K and INR this AM 3.6, HGB 9.2 without BUN elevation. Trend INR Trend HGB Monitor and document GI output Transfuse PRN HGB less than 8 per primary service Check stool culture, stool for c.diff Colonoscopy, timing to be determined. Will discuss with attending. Thank you for allowing us to participate in the care of this patient. Please call with any acute changes, questions or concerns. Please see addendum below with additional recommendation from my supervising physician. Present on Admission?: Yes Supervising Physician Co-Signing Physician Notes Patient was seen and discussed with GALLITO Rivera whose note reflects our findings and plan. Painless rectal bleeding in the setting of supratherapeutic INR. Conservative mgt. Follow H/H and INR. If bleeding persists once INR corrected can consider colonoscopy. History of Present Illness Reason for Consultation: rectal bleeding, elevated INR Requesting Physician: Julissa Attending Physician: Rossi Costa MD History of Present Illness 74 year old male with history of dementia, HTN, dyslipidemia, COPD, afib on coumadin and others below admitted through the ED with elevated INR > 9 and rectal bleeding. Pt was seen and evaluated, chart reviewed. Denies any medications changes but suggests he has his pills prepared for him. Over the past 4-5 days he suggests intermittent episodes of painless, rectal bleeding. This acutely worsened about 24 hours ago prompted ED evaluation. He suggests he has been having bright red blood, large volume mixed with liquid stool. Black any abd cramping prior to onset. No abd pain. No rectal pain/spasm/pressure. Suggests his bowels are moving 1-4 times daily. No UGI symptoms, nausea/vomiting. No prior coffee ground emesis or hematemesis. No lightheadedness, dizziness, CP, SOB. EGD 2013: One 5 mm polyp in the ascending colon. Resected andretrieved. Two 1 mm polyps. Resected and retrieved. The exam was otherwise normal to the cecum. Allergies Allergy/AdvReac Type Severity Reaction Status Date / Time Penicillins Allergy Unknown Rash Verified 02/05/20 01:48 Home Medications Home Medications Medication Instructions Recorded Confirmed Type Centrum Silver 1 tab PO QAM 01/20/19 02/05/20 History amiodarone 200 mg PO QAM 01/20/19 02/05/20 History aspirin 81 mg PO QAM 01/20/19 02/05/20 History donepezil 5 mg PO DAILY 01/20/19 02/05/20 History enalapril maleate 20 mg PO BID 01/20/19 02/05/20 History finasteride 5 mg PO QAM 01/20/19 02/05/20 History metoprolol tartrate 37.5 mg PO BID 01/20/19 02/05/20 History omeprazole 20 mg PO QAM 01/20/19 02/05/20 History simvastatin 20 mg PO QAM 01/20/19 02/05/20 History tamsulosin 0.4 mg PO HS 01/20/19 02/05/20 History warfarin See Rx Instructions .ROUTE .COMPLEX 01/20/19 02/05/20 History Patient History Social History Preferred Language: Monegasque Communication Ability: Effective Recreational Programs Director Required: No Beliefs That Will Affect Care: None Current Living Situation: Alone Other Information That Helps Us Care for You: No Feels Safe at Home: No Is there a partner from a previous relationship who is making you feel unsafe now?: No Any Concerns about Your Family Situation: No Would You Like to Speak to Someone About Your Situation: No Safety Concerns: Feels Safe At This Time and Afraid for Self Smoking Status: Former smoker Tobacco Type: pipe ; Second Hand Exposure: No ; Hx Alcohol Use: Yes Alcohol type: beer Hx Substance Use: No Review of Systems Constitutional: no fever and no chills Respiratory: no cough and no dyspnea Cardiovascular: no chest pain and no dyspnea Gastrointestinal: + blood in stools; no abdominal pain, no nausea, no coffee ground emesis, no hematemesis and no melena Physical Exam Constitutional: well nourished; no acute distress Neck: trachea midline Respiratory: normal respiratory effort Cardiovascular: Rate/Rhythm: regular rate Gastrointestinal (Abdomen): Percussion/Palpation: abdomen soft; abdomen nontender Skin: no rashes, warm and dry Results & Data ([facility]) Vital Signs (Past 12 Hours) Vital Signs Temp Pulse Pulse Pulse Resp BP BP 02/05/20 06:09 57 L 19 102/64 02/05/20 06:00 36.8 C 57 L 16 84/50 L 02/05/20 05:12 59 L 21 93/59 L 02/05/20 04:17 55 L 99/52 L 02/05/20 04:00 54 L 110/54 L 02/05/20 03:30 36.5 C 67 21 02/05/20 03:15 55 L 02/05/20 03:00 54 L 20 02/05/20 02:34 55 L 18 02/05/20 02:01 55 L 20 02/05/20 01:48 55 L 20 02/05/20 01:16 55 L 20 02/05/20 00:59 57 L 20 02/05/20 00:40 36.4 C L 65 22 76/46 L BP Pulse Ox 02/05/20 06:09 02/05/20 06:00 97 02/05/20 05:12 96 02/05/20 04:17 02/05/20 04:00 02/05/20 03:30 89/57 L 95 02/05/20 03:15 02/05/20 03:00 108/56 L 98 02/05/20 02:34 106/67 98 02/05/20 02:01 115/61 95 02/05/20 01:48 124/64 96 02/05/20 01:16 125/62 98 02/05/20 00:59 92/66 L 98 02/05/20 00:40 98 Laboratory Results 02/05/20 02/05/20 02/05/20 Range/Units 05:21 05:21 05:21 WBC (4.8-10.8) K/uL RBC (4.7-6.1) M/uL Hgb 9.2 L (14.0-18.0) g/dL POC Hgb (14.0-18.0) g/dl Hct 27.5 L (42-52) % POC Hct (42-52) % MCV (80-100) fL MCH (25-34) pg MCHC (32-36) g/dL RDW Std Deviation (36.4-46.3) fL RDW Coeff of Anisa (11.5-14.5) % Plt Count (130-400) K/uL MPV (7.4-10.4) fL Immature Gran % (Auto) % Neut % (Auto) % Lymph % (Auto) % [place] % (Auto) % Eos % (Auto) % Baso % (Auto) % Immature Gran # (Auto) (0.00-0.02) K/uL Neut # (Auto) (1.4-6.5) K/uL Lymph # (Auto) (1.2-3.4) K/uL [place] # (Auto) (0.11-0.59) K/uL Eos # (Auto) (0-0.5) K/uL Baso # (Auto) (0-0.2) K/uL PT 35.2 H (9.0-12.0) Seconds INR 3.6 H (0.9-1.1) APTT (21.0-31.0) Seconds PTT Ratio POC Sodium (135-144) mmol/L Sodium 147 H (136-145) mmol/L POC Potassium (3.3-5.0) mmol/L Potassium 3.5 (3.5-5.1) mmol/L POC Chloride (101-112) mmol/L Chloride 115 H (98-107) mmol/L Carbon Dioxide 28 (21-32) mmol/L POC Total CO2 (24-31) mEq/l Anion Gap 4.0 (3-11) POC Anion Gap (16-25) mmol/L POC BUN (7-18) mg/dl BUN 17 (7-18) mg/dl Creatinine 0.93 (0.6-1.4) mg/dl POC Creatinine (0.6-1.3) mg/dl Est Cr Clr Drug Dosing 88.5 Est GFR ( Amer) 92.1 Est GFR (Non-Af Amer) 79.5 BUN/Creatinine Ratio 18.3 (10-20) Glucose 157 H (70-99) mg/dl POC Glucose (other) (70-99) mg/dl Calcium 7.8 L (8.5-10.1) mg/dl POC Ioniz Calcium Breanne (1.12-1.32) mmol/l Magnesium 2.1 (1.8-2.4) mg/dl Total Bilirubin (0.2-1) mg/dl Direct Bilirubin (0-0.2) mg/dl AST (15-37) U/L ALT (12-78) U/L Alkaline Phosphatase (45-117) U/L Troponin I (0-0.045) ng/ml Total Protein (6.4-8.2) gm/dl Albumin (3.4-5.0) gm/dl Blood Type Antibody Screen Crossmatch 02/05/20 02/05/20 02/05/20 Range/Units 01:07 00:53 00:53 WBC (4.8-10.8) K/uL RBC (4.7-6.1) M/uL Hgb (14.0-18.0) g/dL POC Hgb 9.5 L (14.0-18.0) g/dl Hct (42-52) % POC Hct 28 L (42-52) % MCV (80-100) fL MCH (25-34) pg MCHC (32-36) g/dL RDW Std Deviation (36.4-46.3) fL RDW Coeff of Anisa (11.5-14.5) % Plt Count (130-400) K/uL MPV (7.4-10.4) fL Immature Gran % (Auto) % Neut % (Auto) % Lymph % (Auto) % [place] % (Auto) % Eos % (Auto) % Baso % (Auto) % Immature Gran # (Auto) (0.00-0.02) K/uL Neut # (Auto) (1.4-6.5) K/uL Lymph # (Auto) (1.2-3.4) K/uL [place] # (Auto) (0.11-0.59) K/uL Eos # (Auto) (0-0.5) K/uL Baso # (Auto) (0-0.2) K/uL PT > 90.0 H (9.0-12.0) Seconds INR > 9.7 H* (0.9-1.1) APTT 44.9 H (21.0-31.0) Seconds PTT Ratio 1.6 POC Sodium 143 (135-144) mmol/L Sodium 146 H (136-145) mmol/L POC Potassium 3.4 (3.3-5.0) mmol/L Potassium 3.4 L (3.5-5.1) mmol/L POC Chloride 111 (101-112) mmol/L Chloride 115 H (98-107) mmol/L Carbon Dioxide 25 (21-32) mmol/L POC Total CO2 22 L (24-31) mEq/l Anion Gap 5.0 (3-11) POC Anion Gap 14.0 L (16-25) mmol/L POC BUN 15 (7-18) mg/dl BUN 15 (7-18) mg/dl Creatinine 0.94 (0.6-1.4) mg/dl POC Creatinine 0.9 (0.6-1.3) mg/dl Est Cr Clr Drug Dosing Not Reportable Est GFR ( Amer) 90.9 Est GFR (Non-Af Amer) 78.4 BUN/Creatinine Ratio 15.8 (10-20) Glucose 129 H (70-99) mg/dl POC Glucose (other) 131 H (70-99) mg/dl Calcium 7.9 L (8.5-10.1) mg/dl POC Ioniz Calcium Breanne 1.09 L (1.12-1.32) mmol/l Magnesium (1.8-2.4) mg/dl Total Bilirubin 0.5 (0.2-1) mg/dl Direct Bilirubin 0.2 (0-0.2) mg/dl AST 19 (15-37) U/L ALT 24 (12-78) U/L Alkaline Phosphatase 80 (45-117) U/L Troponin I 0.039 (0-0.045) ng/ml Total Protein 5.1 L (6.4-8.2) gm/dl Albumin 2.4 L (3.4-5.0) gm/dl Blood Type Antibody Screen Crossmatch 02/05/20 02/05/20 Range/Units 00:53 00:53 WBC 6.24 (4.8-10.8) K/uL RBC 3.26 L (4.7-6.1) M/uL Hgb 10.8 L (14.0-18.0) g/dL POC Hgb (14.0-18.0) g/dl Hct 32.8 L (42-52) % POC Hct (42-52) % MCV 100.6 H (80-100) fL MCH 33.1 (25-34) pg MCHC 32.9 (32-36) g/dL RDW Std Deviation 53.1 H (36.4-46.3) fL RDW Coeff of Anisa 14.4 (11.5-14.5) % Plt Count 195 (130-400) K/uL MPV 11.4 H (7.4-10.4) fL Immature Gran % (Auto) 0.2 % Neut % (Auto) 67.4 % Lymph % (Auto) 18.8 % [place] % (Auto) 11.2 % Eos % (Auto) 1.8 % Baso % (Auto) 0.6 % Immature Gran # (Auto) 0.01 (0.00-0.02) K/uL Neut # (Auto) 4.21 (1.4-6.5) K/uL Lymph # (Auto) 1.17 L (1.2-3.4) K/uL [place] # (Auto) 0.70 H (0.11-0.59) K/uL Eos # (Auto) 0.11 (0-0.5) K/uL Baso # (Auto) 0.04 (0-0.2) K/uL PT (9.0-12.0) Seconds INR (0.9-1.1) APTT (21.0-31.0) Seconds PTT Ratio POC Sodium (135-144) mmol/L Sodium (136-145) mmol/L POC Potassium (3.3-5.0) mmol/L Potassium (3.5-5.1) mmol/L POC Chloride (101-112) mmol/L Chloride (98-107) mmol/L Carbon Dioxide (21-32) mmol/L POC Total CO2 (24-31) mEq/l Anion Gap (3-11) POC Anion Gap (16-25) mmol/L POC BUN (7-18) mg/dl BUN (7-18) mg/dl Creatinine (0.6-1.4) mg/dl POC Creatinine (0.6-1.3) mg/dl Est Cr Clr Drug Dosing Est GFR ( Amer) Est GFR (Non-Af Amer) BUN/Creatinine Ratio (10-20) Glucose (70-99) mg/dl POC Glucose (other) (70-99) mg/dl Calcium (8.5-10.1) mg/dl POC Ioniz Calcium Breanne (1.12-1.32) mmol/l Magnesium (1.8-2.4) mg/dl Total Bilirubin (0.2-1) mg/dl Direct Bilirubin (0-0.2) mg/dl AST (15-37) U/L ALT (12-78) U/L Alkaline Phosphatase (45-117) U/L Troponin I (0-0.045) ng/ml Total Protein (6.4-8.2) gm/dl Albumin (3.4-5.0) gm/dl Blood Type A Positive Antibody Screen NEGATIVE Crossmatch See Detail
[2020-02-05 11:09] LABS: Hematocrit (blood only) 26.1 % (42-52); Hemoglobin 8.8 g/dL (14.0-18.0)
--- NOTE | 2020-02-05 13:25 | Hospitalist Progress Note ---
Date of Service February 05, 2020 Assessment & Plan (1) Acute GI bleeding: Presented with bright red rectal bleed complicated by high INR Minimal lower abdominal discomfort Continues to have loose bloody stool since this morning Hemoglobin dropped from 12.2 on 21 January 2 10.8 on admission and this morning 8.8 Appreciate GI input and recommendation Will need blood transfusion for globin drops below 8 (2) Elevated INR: INR noted to be very high at 9.7 on admission Received intravenous vitamin K INR improved to 3.6 this morning (3) Paroxysmal atrial flutter: Heart rate is controlled No acute symptoms (4) Dementia: Has dementia No acute delirium (5) HTN (hypertension): Blood pressure is controlled Remains in the lower limit of normal (6) Chronic diastolic heart failure: No acute exacerbation Hyperlipidemia on statin BPH on Flomax DVT prophylaxis SCDs due to rectal bleed Admission and Anticipated Discharge Date Admission Date: February 05, 2020 Subjective The patient was seen and examined in telemetry unit He has had loose bowel movement about 2-3 times this morning and showed blood in it Complains to have minimal lower abdominal pain Denies any chest pain, palpitation or shortness of breath Review of Systems Review of Systems: All systems reviewed and are unremarkable except as noted below Constitutional: + weakness Gastrointestinal: + diarrhea/loose stools and + blood in stools Physical Exam Physical Exam: Lying in bed comfortably Constitutional: well developed and well nourished; no acute distress and not ill appearing Eyes: PERRL, conjunctivae normal, anicteric sclerae ENMT: external ear and nose normal, oropharynx normal Neck: trachea midline, no thyromegaly Respiratory: normal respiratory effort Auscultation: lungs clear to auscultation bilaterally Cardiovascular: Rate/Rhythm: + abnormal rate and + abnormal rhythm Heart Sounds: + murmur (2/6 ESM over precordium) Gastrointestinal (Abdomen): Inspection/Auscultation: abdomen normal to inspection Percussion/Palpation: + abdomen tender (Mildly tender lower left quadrant) and abdomen soft Musculoskeletal: No acute arthritis in any joints Neurologic: moves all extremities; no focal motor deficits Lymphatic: no cervical or axillary lymphadenopathy Results & Data Results & Data ([facility]) Vital Signs (Past 12 Hours) Vital Signs Temp Pulse Pulse Pulse Resp BP BP 02/05/20 11:00 36.9 C 61 22 101/65 04/07/20 08:39 60 02/05/20 07:15 65 14 116/69 02/05/20 06:09 57 L 19 102/64 02/05/20 06:00 36.8 C 57 L 16 84/50 L 02/05/20 05:12 59 L 21 93/59 L 02/05/20 04:17 55 L 99/52 L 02/05/20 04:00 54 L 110/54 L 02/05/20 03:30 36.5 C 67 21 89/57 L 02/05/20 03:15 55 L 02/05/20 03:00 54 L 20 108/56 L 02/05/20 02:34 55 L 18 106/67 02/05/20 02:01 55 L 20 115/61 02/05/20 01:48 55 L 20 124/64 Pulse Ox 02/05/20 11:00 99 02/05/20 08:39 02/05/20 07:15 99 02/05/20 06:09 02/05/20 06:00 97 02/05/20 05:12 96 02/05/20 04:17 02/05/20 04:00 02/05/20 03:30 95 02/05/20 03:15 02/05/20 03:00 98 02/05/20 02:34 98 02/05/20 02:01 95 02/05/20 01:48 96 Laboratory Results Short CBC 02/05/20 02/05/20 02/05/20 Range/Units 00:53 05:21 11:00 WBC 6.24 (4.8-10.8) K/uL Hgb 10.8 L 9.2 L 8.8 L (14.0-18.0) g/dL Hct 32.8 L 27.5 L 26.1 L (42-52) % Plt Count 195 (130-400) K/uL BMP 02/05/20 02/05/20 00:53 05:21 Sodium 146 H 147 H Potassium 3.4 L 3.5 Chloride 115 H 115 H Carbon Dioxide 25 28 BUN 15 17 Creatinine 0.94 0.93 Glucose 129 H 157 H Calcium 7.9 L 7.8 L Cardiac Enzymes 02/05/20 Range/Units 00:53 Troponin I 0.039 (0-0.045) ng/ml Liver Function 02/05/20 Range/Units 00:53 Total Bilirubin 0.5 (0.2-1) mg/dl Direct Bilirubin 0.2 (0-0.2) mg/dl AST 19 (15-37) U/L ALT 24 (12-78) U/L Alkaline Phosphatase 80 (45-117) U/L Albumin 2.4 L (3.4-5.0) gm/dl Medications Administered Current Inpatient Medications Acetaminophen (Tylenol) 650 mg PO Q4H PRN PRN Reason: Pain or Fever Stop: 03/06/20 03:28 [facility]) [facility] [place]: 03/06/20 08:59 Last Admin: 02/05/20 07:28 Dose: 200 mg Documented by: Donepezil HCl (Aricept) 5 mg PO DAILY [facility] Stop: 03/06/20 08:59 Last Admin: 02/05/20 07:28 Dose: 5 mg Documented by: Enalapril Maleate (Vasotec) 20 mg PO BID [facility] Stop: 03/06/20 08:59 Last Admin: 02/05/20 07:28 Dose: 20 mg Documented by: Finasteride (Proscar) 5 mg PO QAM [facility] Stop: 03/06/20 08:59 Last Admin: 02/05/20 07:27 Dose: 5 mg Documented by: Pantoprazole Sodium 40 mg/ (Dextrose) 100 mls @ 20 mls/hr IV Q5H [facility] Stop: 03/06/20 03:14 Last Admin: 02/05/20 12:37 Dose: 8 mg/hr, 20 mls/hr Documented by: Sodium Chloride (Nss 1000ml) 1,000 mls @ 80 mls/hr IV .[id number] [facility] Stop: 03/06/20 03:28 Last Admin: 02/05/20 03:30 Dose: 80 mls/hr Documented by: Metoprolol Tartrate (Lopressor) 37.5 mg PO BID [facility] Stop: 03/06/20 08:59 Last Admin: 02/05/20 07:27 Dose: 37.5 mg Documented by: Multivitamins/Minerals (Multivitamin W/ Minerals Tab) 1 tab PO QAM [facility] Stop: 03/06/20 08:59 Last Admin: 02/05/20 07:28 Dose: 1 tab Documented by: Nitroglycerin (Nitrostat) 0.4 mg SL UD PRN PRN Reason: Chest Pain Stop: 03/06/20 03:28 Ondansetron HCl (Zofran) 4 mg IV Q6H PRN PRN Reason: Nausea Stop: 03/06/20 03:28 Simvastatin (Zocor) [facility] [place]: 03/06/20 08:59 Last Admin: 02/05/20 07:27 Dose: 20 mg Documented by: Tamsulosin HCl (Flomax) 0.4 mg PO [facility] Stop: 03/06/20 20:59
[2020-02-05 18:15] LABS: Hematocrit (blood only) 25.3 % (42-52); Hemoglobin 8.5 g/dL (14.0-18.0)
[2020-02-05] MEDS: TAMSULOSIN HCL 0.4 MG CAP PO SCH (21:15)
[2020-02-06 02:40] LABS: Basophils # (auto) 0.03 K/uL (0-0.2); Basophils % (auto) 0.4 %; Eosinophils # (auto) 0.07 K/uL (0-0.5); Eosinophils % (auto) 0.9 %; Hemoglobin 8.6 g/dL (14.0-18.0); Immature Granulocytes # (auto) 0.02 K/uL (0.00-0.02); Immature Granulocytes % (auto) 0.3 %; Lymphocytes % (auto) 24.1 %; Mean Corpuscular Hemoglobin 33.3 pg (25-34); Mean Corpuscular Hgb Conc 33.1 g/dL (32-36); Mean Corpuscular Volume 100.8 fL (80-100); Mean Platelet Volume 11.4 fL (7.4-10.4); Monocytes # (auto) 0.83 K/uL (0.11-0.59); Monocytes % (auto) 11.1 %; Neutrophils # (auto) 4.73 K/uL (1.4-6.5); Neutrophils % (auto) 63.2 %; Platelet Count 169 K/uL (130-400); RDW Coefficient of Variation 14.6 % (11.5-14.5); RDW Standard Deviation 52.9 fL (36.4-46.3); Red Blood Count 2.58 M/uL (4.7-6.1); White Blood Count 7.48 K/uL (4.8-10.8)
[2020-02-06 02:50] LABS: INR 1.3 (0.9-1.1)
[2020-02-06 03:02] LABS: BUN Creatinine Ratio 17.4 (10-20); Creatinine Clr Calc Pharmacy 88.5 ml/min; Est GFR (African American) 92.1; Est GFR (Non-African American) 79.5; Potassium 3.6 mmol/L (3.5-5.1)
[2020-02-06] MEDS: PANTOprazole 40 MG in DEXTROSE 5% 100 ML IV SCH ×2 (04:15→08:24)
[2020-02-06] MEDS: SODIUM CHLORIDE 0.9% 1000ML 1,000 ML IV SCH ×2 (04:15→17:09)
[2020-02-06] MEDS: CEROVITE ADV FORMULA TAB PO SCH (08:06)
[2020-02-06] MEDS: METOPROLOL TARTRATE 25 MG TAB PO SCH ×2 (08:06→19:48)
[2020-02-06] MEDS: ENALAPRIL MALEATE 10 MG TAB PO SCH ×2 (08:06→19:49)
[2020-02-06] MEDS: DONEPEZIL HCL 5 MG TAB PO SCH (08:07)
[2020-02-06] MEDS: AMIODARONE 200 MG TAB PO SCH (08:07)
[2020-02-06] MEDS: SIMVASTATIN 20 MG TAB PO SCH (08:07)
[2020-02-06] MEDS: FINASTERIDE 5 MG TAB PO SCH (08:08)
--- NOTE | 2020-02-06 08:31 | Gastroenterology Progress Note ---
Date of Service February 06, 2020 Assessment & Plan (1) Acute GI bleedin74 year old male with history of dementia, HTN, dyslipidemia, COPD, afib on coumadin and others below admitted through the ED with elevated INR > 9 and intermittent painless rectal bleeding starting 4-5 days ago. He denies abd pain/cramping, rectal pain/pressure or prior episodes of melena, hematemesis, coffee ground emesis. He received Vit K and INR this AM 1.3, HGB 8.6 without BUN elevation. Trend INR Trend HGB Monitor and document GI output Can stop IV PPI Transfuse PRN HGB less than 8 per primary service Check stool culture, stool for c.diff OP colonoscopy Thank you for allowing us to participate in the care of this patient. Please call with any acute changes, questions or concerns. Please see addendum below with additional recommendation from my supervising physician. Admission and Anticipated Discharge Date Admission Date: February 05, 2020 Supervising Physician Co-Signing Physician Notes Patient admitted with hematochezia likely related to his significantly elevated INR upon admission. It appears that no recurrent bleeding has been noted in the last 24 hours. Recommendations Outpatient colonoscopy in 3 to 4 months Use a stool softener, MiraLAX 17 g/day GI to sign off, please call with any questions or concerns Subjective Pt was seen and evaluated, chart reviewed. He is confused this AM. Oriented to person, but not time or location. No abd pain No UGI symptoms. Moving bowels. Last stool was yesterday AM. Small volume, watery and bloody. Review of Systems Constitutional: no fever, no chills and no fatigue Respiratory: no cough and no dyspnea Cardiovascular: no chest pain, no dyspnea and no orthopnea Gastrointestinal: no abdominal pain and no coffee ground emesis Physical Exam Constitutional: well nourished; no acute distress Neck: trachea midline Respiratory: normal respiratory effort Cardiovascular: Rate/Rhythm: regular rate Gastrointestinal (Abdomen): Percussion/Palpation: abdomen soft; abdomen nontender Skin: no rashes, warm and dry Results & Data ([facility]) Vital Signs (Past 12 Hours) Vital Signs Temp Pulse Pulse Pulse Resp BP BP 02/06/20 07:13 36.9 C 74 18 101/61 02/06/20 03:51 36.8 C 62 18 114/64 02/06/20 00:43 67 02/05/20 23:58 36.5 C 62 20 96/56 L Pulse Ox 02/06/20 07:13 95 02/06/20 03:51 96 02/06/20 00:43 02/05/20 23:58 96
--- NOTE | 2020-02-06 14:35 | Electrocardiogram Report ---
Test Reason : Blood Pressure : / mmHG Vent. Rate : 064 BPM Atrial Rate : 064 BPM P-R Int : 160 ms QRS Dur : 130 ms QT Int : 532 ms P-R-T Axes : 056 -38 004 degrees QTc Int : 548 ms Poor data quality, interpretation may be adversely affected Sinus rhythm Left axis deviation Right bundle branch block Abnormal ECG When compared with ECG of 21-JAN-2019 06:39, No significant change Confirmed by Markus Garrison ([id number]) on 02/06/2020 2:35:27 PM Referred By: REFERRED SELF Confirmed By:Markus Garrison
--- NOTE | 2020-02-06 14:41 | Electrocardiogram Report ---
Test Reason : Blood Pressure : / mmHG Vent. Rate : 094 BPM Atrial Rate : 081 BPM P-R Int : 000 ms QRS Dur : 140 ms QT Int : 418 ms P-R-T Axes : 000 -57 -07 degrees QTc Int : 522 ms Atrial fibrillation with premature ventricular or aberrantly conducted complexes Right bundle branch block Left anterior fascicular block Bifascicular block Abnormal ECG When compared with ECG of 05-FEB-2020 00:52, (unconfirmed) Atrial fibrillation has replaced Sinus rhythm Confirmed by Markus Garrison ([id number]) on 02/06/2020 2:41:10 PM Referred By: REFERRED SELF Confirmed By:Markus Garrison
--- NOTE | 2020-02-06 15:17 | Hospitalist Progress Note ---
Date of Service February 06, 2020 Assessment & Plan (1) Acute GI bleeding: Possible Warfarin related GI bleed due to Supratherapeutic INR on admission Hgb on admission 10.8, Hemoglobin dropped from 12.2 on 24th Was starting on PPI drip Today hemoglobin 8.6 Gastro on board No plan for inpatient colonoscopy Diet advanced to full liquid diet PPI was discontinued today Monitor H/H and transfused if hemoglobin less than 8 Continue monitor closely (2) Elevated INR: INR noted to be very high at 9.7 on admission Received intravenous vitamin K INR improved to 1.3 this morning Will discuss with GI to when to resume the coumadin (3) Paroxysmal atrial flutter: Heart rate is controlled with metoprolol and amiodarone Warfarin and aspirin on hold due to GI bleed No acute symptoms (4) Dementia: Has dementia No acute delirium (5) HTN (hypertension): Blood pressure stable On Enalapril and metoprolol Continue monitor (6) Chronic diastolic heart failure: No acute exacerbation Hyperlipidemia on statin BPH on Flomax DVT prophylaxis SCDs due to rectal bleed Admission and Anticipated Discharge Date Admission Date: February 05, 2020 Subjective Pt was seen and examined sitting i chair with no distress Pt said that he has a bloody bowel movement today He denies any abdominal pain and nausea he said that he feels ok Denies any chest pain, palpitation, dizziness and SOB Physical Exam Physical Exam: General- No acute distress Head- atraumatic Eyes- PERRL, EOMI, ENT- oropharynx clear Neck- supple, no JVD Lungs- clear to auscultation Heart- regular rhythm; +murmur Abdomen- normal bowel sounds, soft, nontender Extremities- no calf tenderness Neuro- alert, oriented x 3; PERRL, EOMI; no facial palsy; no dysarthria Skin- warm & dry Results & Data Results & Data ([facility]) Vital Signs (Past 12 Hours) Vital Signs Temp Pulse Pulse Resp BP Pulse Ox 02/06/20 11:19 36.6 C 59 L 20 103/60 97 02/06/20 07:13 36.9 C 74 18 101/61 95 02/06/20 03:51 36.8 C 62 18 114/64 96
[2020-02-06 16:24] LABS: Hematocrit (blood only) 27.5 % (42-52)
[2020-02-06] MEDS: TAMSULOSIN HCL 0.4 MG CAP PO SCH (19:48)
[2020-02-07] MEDS ORDERED: METOPROLOL TARTRATE 1 MG/ML VIAL IV STA (02:34)
[2020-02-07] MEDS ORDERED: POTASSIUM CHLORIDE 20 MEQ TABCR PO STA (02:35)
[2020-02-07] MEDS ORDERED: MAGNESIUM SULFATE / D5W 1 GM/100 ML BAG IV ONE (02:45)
[2020-02-07] MEDS: AMIODARONE 200 MG TAB PO SCH (03:01)
[2020-02-07 03:16] LABS: Basophils # (auto) 0.02 K/uL (0-0.2); Basophils % (auto) 0.3 %; Eosinophils # (auto) 0.07 K/uL (0-0.5); Eosinophils % (auto) 0.9 %; Hematocrit (blood only) 25.1 % (42-52); Hemoglobin 8.4 g/dL (14.0-18.0); Immature Granulocytes # (auto) 0.02 K/uL (0.00-0.02); Immature Granulocytes % (auto) 0.3 %; Lymphocytes % (auto) 11.3 %; Mean Corpuscular Hemoglobin 33.5 pg (25-34); Mean Corpuscular Hgb Conc 33.5 g/dL (32-36); Mean Platelet Volume 11.5 fL (7.4-10.4); Monocytes # (auto) 0.74 K/uL (0.11-0.59); Monocytes % (auto) 9.3 %; Neutrophils # (auto) 6.22 K/uL (1.4-6.5); Neutrophils % (auto) 77.9 %; Platelet Count 147 K/uL (130-400); RDW Coefficient of Variation 14.5 % (11.5-14.5); RDW Standard Deviation 52.7 fL (36.4-46.3); Red Blood Count 2.51 M/uL (4.7-6.1); White Blood Count 7.97 K/uL (4.8-10.8)
[2020-02-07 03:25] LABS: INR 1.4 (0.9-1.1); Prothrombin Time 14.6 Seconds (9.0-12.0)
[2020-02-07 03:35] LABS: BUN Creatinine Ratio 17.3 (10-20); Calcium 7.8 mg/dl (8.5-10.1); Creatinine Clr Calc Pharmacy 109.4 ml/min; Est GFR (African American) 102.7; Est GFR (Non-African American) 88.6; Potassium 3.8 mmol/L (3.5-5.1)
[2020-02-07] MEDS: SIMVASTATIN 20 MG TAB PO SCH (08:40)
[2020-02-07] MEDS: ENALAPRIL MALEATE 10 MG TAB PO SCH ×2 (08:40→21:34)
[2020-02-07] MEDS: METOPROLOL TARTRATE 25 MG TAB PO SCH ×2 (08:41→21:35)
[2020-02-07] MEDS: DONEPEZIL HCL 5 MG TAB PO SCH (08:41)
[2020-02-07] MEDS: CEROVITE ADV FORMULA TAB PO SCH (08:41)
[2020-02-07] MEDS: FINASTERIDE 5 MG TAB PO SCH (08:41)
--- NOTE | 2020-02-07 13:17 | Hospitalist Progress Note ---
Date of Service February 07, 2020 Assessment & Plan (1) Acute GI bleeding: Possible Warfarin related GI bleed due to Supratherapeutic INR on admission Hgb on admission 10.8, Hemoglobin dropped from 12.2 on 24th Was starting on PPI drip Today hemoglobin 8.4 Gastro on board No plan for inpatient colonoscopy Diet advanced to full liquid diet please advanced diet if tolerated PPI was discontinued today Monitor H/H and transfused if hemoglobin less than 8 case discussed with GI about anticoagulant on discharge, but would like to defer to cardio Continue monitor closely (2) Elevated INR: INR noted to be very high at 9.7 on admission Received intravenous vitamin K INR improved to 1.4 this morning GI deferred anticoagulant to cardio Will discuss with cardio Continue to hold Coumadin for now (3) Paroxysmal atrial flutter: Has been in/out Afib Heart rate is controlled with metoprolol and amiodarone Warfarin and aspirin on hold due to GI bleed Will keep K above 4 and Mg 2 No acute symptoms (4) Dementia: Has dementia No acute delirium (5) HTN (hypertension): Blood pressure stable On Enalapril and metoprolol Continue monitor (6) Chronic diastolic heart failure: No acute exacerbation Hyperlipidemia on statin BPH on Flomax DVT prophylaxis SCDs due to rectal bleed Admission and Anticipated Discharge Date Admission Date: February 05, 2020 Subjective Pt was seen and examined Lying in bed with no distress with no distress with one to one sitter Pt is anxious to go home today He has been on and off confused Denies any chest pain, palpitation, dizziness and SOB Physical Exam Physical Exam: General- No acute distress Head- atraumatic Eyes- PERRL, EOMI, ENT- oropharynx clear Neck- supple, no JVD Lungs- clear to auscultation Heart- regular rhythm; +murmur Abdomen- normal bowel sounds, soft, nontender Extremities- no calf tenderness Neuro- alert, oriented x 3; PERRL, EOMI; no facial palsy; no dysarthria Skin- warm & dry Results & Data Results & Data ([facility]) Vital Signs (Past 12 Hours) Vital Signs Temp Pulse Pulse Pulse Resp BP Pulse Ox 02/07/20 10:50 37.5 C 65 20 145/82 H 95 02/07/20 10:03 69 02/07/20 07:24 36.7 C 73 22 113/75 95 02/07/20 03:42 37 C 67 22 108/69 95 02/07/20 02:32 120 H 119/67
[2020-02-07] MEDS ORDERED: POTASSIUM CHLORIDE 10 MEQ TABCR PO STA (13:25)
[2020-02-07] MEDS: TAMSULOSIN HCL 0.4 MG CAP PO SCH (21:34)
[2020-02-08] MEDS ORDERED: OLANZapine 10 MG/2.1 ML SDV IM PRN (00:39)
[2020-02-08 02:15] LABS: Appearance Urine Clear (Clear); Bacteria Urine Automated Negative (Negative); Bilirubin Urine Negative (Negative); Blood Urine Negative (Negative); Color Urine Dark Yellow; Glucose Urine UA Negative (Negative); Ketones Urine Negative (Negative); Leukocyte Esterase Urine Trace (Negative); Nitrite Urine Negative (Negative); Protein Urine Negative (Negative); RBC Urine Automated 0-4 /hpf (0-4); Urobilinogen Urine Negative (Negative)
[2020-02-08 08:28] LABS: Hematocrit (blood only) 24.1 % (42-52); Hemoglobin 8.1 g/dL (14.0-18.0); Mean Corpuscular Hemoglobin 33.9 pg (25-34); Mean Corpuscular Hgb Conc 33.6 g/dL (32-36); Mean Corpuscular Volume 100.8 fL (80-100); Mean Platelet Volume 10.7 fL (7.4-10.4); Platelet Count 163 K/uL (130-400); RDW Coefficient of Variation 14.5 % (11.5-14.5); RDW Standard Deviation 53.2 fL (36.4-46.3); Red Blood Count 2.39 M/uL (4.7-6.1); White Blood Count 7.45 K/uL (4.8-10.8)
[2020-02-08] MEDS: DONEPEZIL HCL 5 MG TAB PO SCH (08:34)
[2020-02-08] MEDS: METOPROLOL TARTRATE 25 MG TAB PO SCH ×2 (08:34→21:34)
[2020-02-08] MEDS: CEROVITE ADV FORMULA TAB PO SCH (08:34)
[2020-02-08] MEDS: SIMVASTATIN 20 MG TAB PO SCH (08:34)
[2020-02-08] MEDS: AMIODARONE 200 MG TAB PO SCH (08:34)
[2020-02-08] MEDS: FINASTERIDE 5 MG TAB PO SCH (08:34)
[2020-02-08] MEDS: ENALAPRIL MALEATE 10 MG TAB PO SCH ×2 (08:36→21:34)
[2020-02-08] MEDS ORDERED: POTASSIUM CHLORIDE 20 MEQ TABCR PO STA (10:33)
--- NOTE | 2020-02-08 15:23 | Cardiology Consultation ---
Date of Consultation February 08, 2020 Assessment & Plan (1) Acute GI bleeding: In the setting of supratherapeutic INR. Coumadin has been reversed. Outpatient colonoscopy recommended by GI service. (2) Elevated INR: Reversed (3) Paroxysmal atrial flutter: I reviewed stroke risk along with the risk of recurrent GI bleeding with the patient and his son by phone. Given the fact that no source of bleed has been identified or treated it was agreed at this time we will hold off on restarting anticoagulation until outpatient colonoscopy is performed. Both the patient and his son state that they are aware and accepting of increased stroke risk while off anticoagulation. History of Present Illness Reason for Consultation: Anticoagulation management Requesting Physician: Dr. Acevedo Attending Physician: Fritz Acevedo MD History of Present Illness It was my pleasure to see Mr. Ojeda in consultation today February 08, 2020. He is a very pleasant yet somewhat demented 74-year-old gentleman who routinely follows with Dr. Alejo and Samantha of our cardiology practice. He presented to [facility] on 02/05/2020 with complaints of rectal bleeding. Upon arrival his INR was greater than 9.7 and reversed with vitamin K. His hemoglobin started to trend down and he was transfused. He was seen by gastroenterology who recommended outpatient colonoscopy. His Coumadin is obvi ously been held and cardiology was consulted to discuss ongoing anticoagulation management. Currently the patient states he is feeling fine. Denies experiencing any chest pain, shortness of breath, palpitations, lightheadedness, dizziness or syncope. He has been going in and out of atrial fibrillation on the monitor. He did not get his INR checked in the month of December because she was avoiding coming into the clinic during the current pandemic. I also spoke with his son, , over the phone who is a RN and very well versed in his fathers medical history. Allergies Allergy/AdvReac Type Severity Reaction Status Date / Time Penicillins Allergy Unknown Rash Verified 02/05/20 01:48 Home Medications Home Medications Medication Instructions Recorded Confirmed Type Centrum Silver 1 tab PO QAM 01/20/19 02/05/20 History amiodarone 200 mg PO QAM 01/20/19 02/05/20 History aspirin 81 mg PO QAM 01/20/19 02/05/20 History donepezil 5 mg PO DAILY 01/20/19 02/05/20 History enalapril maleate 20 mg PO BID 01/20/19 02/05/20 History finasteride 5 mg PO QAM 01/20/19 02/05/20 History metoprolol tartrate 37.5 mg PO BID 01/20/19 02/05/20 History omeprazole 20 mg PO QAM 01/20/19 02/05/20 History simvastatin 20 mg PO QAM 01/20/19 02/05/20 History tamsulosin 0.4 mg PO HS 01/20/19 02/05/20 History warfarin See Rx Instructions .ROUTE .COMPLEX 01/20/19 02/05/20 History Patient History Medical History Atrial fibrillation with RVR (Resolved) Constipation (Chronic) Dyslipidemia (Chronic) GERD (gastroesophageal reflux disease) (Chronic) Hematuria HTN (hypertension) (Chronic) 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 (Chronic) PAF (paroxysmal atrial fibrillation) (Chronic) Surgical History H/O hernia repair Family History Other Family history non-contributory Social History Preferred Language: Yakut Communication Ability: Effective Recruiter Coordinator Required: No Beliefs That Will Affect Care: None Current Living Situation: Alone Other Information That Helps Us Care for You: No Feels Safe at Home: No Is there a partner from a previous relationship who is making you feel unsafe now?: No Any Concerns about Your Family Situation: No Would You Like to Speak to Someone About Your Situation: No Safety Concerns: Feels Safe At This Time and Afraid for Self Smoking Status: Former smoker Tobacco Type: pipe ; Second Hand Exposure: No ; Hx Alcohol Use: Yes Alcohol type: beer Hx Substance Use: No Review of Systems Review of Systems: All systems reviewed & are unremarkable except as noted in HPI & below Physical Exam Physical Exam: General: Awake, alert and oriented x 3. No acute distress. HEENT: Normocephalic, atraumatic. Pupils equal, round and reactive to light and accommodation. Extraocular muscles are intact. Anicteric sclera. Moist mucous membranes. Neck: No JVD. No bruit. Cardiovascular: Regular. Positive S-4. Normal S-1 and S-2. No S-3. 3/6 mid to late systolic ejection murmur, greatest at the right sternal border, second intercostal space with radiation to the bilateral carotids. No rubs. Pulmonary: Clear to auscultation bilaterally. No rales, rhonchi, or wheezing. Abdomen: Bowel sounds x 4, soft. No rebound, guarding or tenderness. No organomegaly. Extremities: No clubbing, cyanosis or edema. +2 pedal pulses bilaterally. Skin: Warm and dry. Results & Data ([facility]) Vital Signs (Past 12 Hours) Vital Signs Temp Pulse Pulse Resp BP BP Pulse Ox 02/08/20 12:43 36.4 C L 76 20 106/66 99 02/08/20 11:18 02/08/20 07:40 70 02/08/20 07:19 36.8 C 120 H 22 107/69 94 02/08/20 03:50 36.8 C 74 22 114/65 95 Pulse Ox 02/08/20 12:43 02/08/20 11:18 97 02/08/20 07:40 02/08/20 07:19 02/08/20 03:50
--- NOTE | 2020-02-08 17:48 | Hospitalist Progress Note ---
Date of Service February 08, 2020 Assessment & Plan (1) Acute GI bleeding: Possible Warfarin related GI bleed due to Supratherapeutic INR on admission Hgb on admission 10.8, Hemoglobin dropped from 12.2 on 24 Was starting on PPI drip Hemoglobin dropped to 8.1 today Gastro on board No plan for inpatient colonoscopy Diet advanced to full liquid diet please advanced diet if tolerated PPI was discontinued today Monitor H/H and transfused if hemoglobin less than 8 case discussed with GI about anticoagulant on discharge, but would like to defer to cardio Continue monitor closely (2) Elevated INR: INR noted to be very high at 9.7 on admission Received intravenous vitamin K GI deferred anticoagulant to cardio Continue to hold Coumadin for now (3) Paroxysmal atrial flutter: Has been in/out Afib Heart rate is controlled with metoprolol and amiodarone Warfarin and aspirin on hold due to GI bleed Will keep K above 4 and Mg 2 Denies any symptoms Case discussed with cardiology that recommended to hold off on restarting anticoagulation until outpatient colonoscopy is performed. Son was made aware by corporate logistics manager and agreed with the plan (4) Dementia: Has dementia No acute delirium (5) HTN (hypertension): Blood pressure stable On Enalapril and metoprolol Continue monitor (6) Chronic diastolic heart failure: No acute exacerbation Hyperlipidemia on statin BPH on Flomax DVT prophylaxis SCDs due to rectal bleed Admission and Anticipated Discharge Date Admission Date: February 05, 2020 Subjective Pt was seen and examined Lying in bed with no distress Pt said that he had a small episode of dark BM Denies any chest pain, palpitation, dizziness and SOB Physical Exam Physical Exam: General- No acute distress Head- atraumatic Eyes- PERRL, EOMI, ENT- oropharynx clear Neck- supple, no JVD Lungs- clear to auscultation Heart- regular rhythm; +murmur Abdomen- normal bowel sounds, soft, nontender Extremities- no calf tenderness Neuro- alert, oriented; PERRL, EOMI; no facial palsy; no dysarthria Skin- warm & dry Results & Data Results & Data ([facility]) Vital Signs (Past 12 Hours) Vital Signs Temp Pulse Pulse Resp BP BP Pulse Ox 02/08/20 15:45 37.0 C 73 19 133/79 95 02/08/20 15:42 66 02/08/20 12:43 36.4 C L 76 20 106/66 99 02/08/20 11:18 02/08/20 07:40 70 02/08/20 07:19 36.8 C 120 H 22 107/69 94 Pulse Ox 02/08/20 15:45 02/08/20 15:42 02/08/20 12:43 02/08/20 11:18 97 02/08/20 07:40 02/08/20 07:19
[2020-02-08] MEDS: TAMSULOSIN HCL 0.4 MG CAP PO SCH (21:34)
[2020-02-09] MEDS: METOPROLOL TARTRATE 25 MG TAB PO SCH ×2 (08:16→19:56)
[2020-02-09] MEDS: FINASTERIDE 5 MG TAB PO SCH (08:17)
[2020-02-09] MEDS: ENALAPRIL MALEATE 10 MG TAB PO SCH ×2 (08:17→19:56)
[2020-02-09] MEDS: DONEPEZIL HCL 5 MG TAB PO SCH (08:17)
[2020-02-09] MEDS: AMIODARONE 200 MG TAB PO SCH (08:17)
[2020-02-09] MEDS: CEROVITE ADV FORMULA TAB PO SCH (08:17)
[2020-02-09] MEDS: SIMVASTATIN 20 MG TAB PO SCH (08:18)
[2020-02-09 09:34] LABS: Hematocrit (blood only) 23.1 % (42-52); Hemoglobin 7.7 g/dL (14.0-18.0); Mean Corpuscular Hemoglobin 34.2 pg (25-34); Mean Corpuscular Hgb Conc 33.3 g/dL (32-36); Mean Corpuscular Volume 102.7 fL (80-100); Mean Platelet Volume 10.5 fL (7.4-10.4); Platelet Count 179 K/uL (130-400); RDW Coefficient of Variation 14.9 % (11.5-14.5); RDW Standard Deviation 54.8 fL (36.4-46.3); Red Blood Count 2.25 M/uL (4.7-6.1); White Blood Count 6.61 K/uL (4.8-10.8)
[2020-02-09 09:58] LABS: BUN Creatinine Ratio 11.8 (10-20); Creatinine Clr Calc Pharmacy 96.2 ml/min; Est GFR (African American) 97.6; Est GFR (Non-African American) 84.2; Potassium 3.8 mmol/L (3.5-5.1)
--- NOTE | 2020-02-09 10:54 | Cardiology Progress Note ---
Date of Service February 09, 2020 Assessment & Plan (1) Acute GI bleeding: (2) Elevated INR: Reversed (3) Paroxysmal atrial flutter: The patient had one short burst of paroxysmal atrial flutter this morning but is otherwise been stable. His INR today is 1.4. His hemoglobin is now below 8 and I think he would benefit from a transfusion. Subjective Patient is still having dark stools otherwise no complaints. Review of Systems Review of Systems: All systems reviewed & are unremarkable except as noted in HPI & below Nothing additional to add. Physical Exam Physical Exam: General: no acute distress and stated age Head: normocephalic, no masses, lesions, tenderness or abnormalities Eyes: conjunctiva are pink and non-injected, sclera clear Neck: supple, no adenopathy, no bruits, normal jugular venous pulse, no hepatojugular reflux Chest: normal shape and normal respiratory effort Lungs: clear to auscultation and percussion Cardiac Exam: - regular rate & rhythm, no murmurs gallops or rubs - normal S1, normal S2 Pulses: 2(+) throughout Abdomen: abdomen soft, non-tender, no abnormal masses and no hepatosplenomegaly Musculoskeletal: no gait disturbance, no joint inflammation, no deforming art hritis Extremities: no edema and no cyanosis Neuro: grossly normal exam Results & Data Vital Signs (Past 12 Hours) Vital Signs Temp Pulse Pulse Resp BP Pulse Ox 02/09/20 08:08 36.6 C 77 18 125/65 97 02/09/20 07:20 78 02/09/20 03:40 36.9 C 70 20 163/67 H 96 02/09/20 01:03 36.9 C 75 19 108/65 97 Laboratory Results Laboratory Results - last 24 hr 02/09/20 02/09/20 09:20 09:20 WBC 6.61 RBC 2.25 L Hgb 7.7 L Hct 23.1 L MCV 102.7 H MCH 34.2 H MCHC 33.3 RDW Std Deviation 54.8 H RDW Coeff of Anisa 14.9 H Plt Count 179 MPV 10.5 H Sodium 143 Potassium 3.8 Chloride 112 H Carbon Dioxide 29 Anion Gap 2.0 L BUN 10 Creatinine 0.86 Est Cr Clr Drug Dosing 96.2 Est GFR ( Amer) 97.6 Est GFR (Non-Af Amer) 84.2 BUN/Creatinine Ratio 11.8 Glucose 115 H Calcium 8.0 L Medications Administered Current Inpatient Medications Acetaminophen (Tylenol) 650 mg PO Q4H PRN PRN Reason: Pain or Fever Stop: 03/06/20 03:28 Amiodarone HCl (Cordarone) 200 mg PO QAM [facility] Stop: 03/08/20 02:44 Last Admin: 02/09/20 08:17 Dose: 200 mg Documented by: Donepezil HCl (Aricept) 5 mg PO DAILY [facility] Stop: 03/06/20 08:59 Last Admin: 02/09/20 08:17 Dose: 5 mg Documented by: Enalapril Maleate (Vasotec) 20 mg PO BID [facility] Stop: 03/06/20 08:59 Last Admin: 02/09/20 08:17 Dose: 20 mg Documented by: Finasteride (Proscar) 5 mg PO QAM [facility] Stop: 03/06/20 08:59 Last Admin: 02/09/20 08:17 Dose: 5 mg Documented by: Metoprolol Tartrate (Lopressor) 37.5 mg PO BID [facility] Stop: 03/06/20 08:59 Last Admin: 02/09/20 08:16 Dose: 37.5 mg Documented by: Multivitamins/Minerals (Multivitamin W/ Minerals Tab) 1 tab PO [facility] Stop: 03/06/20 08:59 Last Admin: 02/09/20 08:17 Dose: 1 tab Documented by: Nitroglycerin (Nitrostat) 0.4 mg SL UD PRN PRN Reason: Chest Pain Stop: 03/06/20 03:28 Olanzapine (Zyprexa) 2.5 mg IM Q4H PRN PRN Reason: Anxiety/Agitation Stop: 03/09/20 00:38 Ondansetron HCl (Zofran) 4 mg IV Q6H PRN PRN Reason: Nausea Stop: 03/06/20 03:28 [facility] ([facility]oc[facility]) [facility] Stop: 03/06/20 08:59 Last Admin: 02/09/20 08:18 Dose: 20 mg Documented by: Tamsulosin HCl (Flomax) 0.4 mg PO HS [facility] Stop: 03/06/20 20:59 Last Admin: 02/08/20 21:34 Dose: 0.4 mg Documented by:
[2020-02-09] MEDS ORDERED: SODIUM CHLORIDE 0.9% 250 ML IV PRN (11:34)
--- NOTE | 2020-02-09 16:47 | Hospitalist Progress Note ---
Date of Service February 09, 2020 Assessment & Plan (1) Acute GI bleeding: Anemia Possible Warfarin related GI bleed due to Supratherapeutic INR on admission Hgb on admission 10.8, Hemoglobin dropped from 12.2 on 24 Was starting on PPI drip Hemoglobin dropped to 7.7 today Gastro on board No plan for inpatient colonoscopy Diet advanced to full liquid diet Tolerated diet PPI was discontinued today Type and crossed and transfused 1 unit PRBC today Continue monitor H/H and transfused if hemoglobin less than 8 case discussed with GI about anticoagulant on discharge, but would like to defer to cardio Continue to hold aspirin and coumadin on discharge Continue monitor closely (2) Elevated INR: INR noted to be very high at 9.7 on admission Received intravenous vitamin K GI deferred anticoagulant to cardio Continue to hold Coumadin for now (3) Paroxysmal atrial flutter: Has been in/out Afib Heart rate is controlled with metoprolol and amiodarone Warfarin and aspirin on hold due to GI bleed Will keep K above 4 and Mg 2 Denies any symptoms Case discussed with cardiology that recommended to hold off on restarting anticoagulation until outpatient colonoscopy is performed. Son was made aware by oleo hasher and renderer and agreed with the plan (4) Dementia: Has dementia No acute delirium (5) HTN (hypertension): Blood pressure stable On Enalapril and metoprolol Continue monitor (6) Chronic diastolic heart failure: No acute exacerbation Hyperlipidemia on statin BPH on Flomax DVT prophylaxis SCDs due to rectal bleed Admission and Anticipated Discharge Date Admission Date: February 05, 2020 Subjective Pt was seen and examined Lying in bed with no distress Pt had 3 small BM today with dark stools Denies any chest pain, palpitation, dizziness and SOB Physical Exam Physical Exam: General- No acute distress Head- atraumatic Eyes- PERRL, EOMI, ENT- oropharynx clear Neck- supple, no JVD Lungs- clear to auscultation Heart- regular rhythm; +murmur Abdomen- normal bowel sounds, soft, nontender Extremities- no calf tenderness Neuro- alert, oriented; PERRL, EOMI; no facial palsy; no dysarthria Skin- warm & dry Results & Data Results & Data ([facility]) Vital Signs (Past 12 Hours) Vital Signs Temp Pulse Pulse Resp BP BP BP 02/09/20 16:44 36.7 C 67 18 143/71 H 02/09/20 16:03 36.5 C 83 18 156/80 H 02/09/20 15:55 36.5 C 84 18 169/87 H 02/09/20 15:03 36.8 C 65 18 146/82 H 02/09/20 14:33 36.8 C 71 18 143/84 H 02/09/20 14:20 66 02/09/20 14:18 36.7 C 66 18 126/77 02/09/20 13:58 37 C 75 18 146/80 H 02/09/20 11:16 36.7 C 59 L 18 135/84 02/09/20 08:08 36.6 C 77 18 125/65 02/09/20 07:20 78 Pulse Ox 02/09/20 16:44 96 02/09/20 16:03 95 02/09/20 15:55 96 02/09/20 15:03 93 02/09/20 14:33 93 02/09/20 14:20 02/09/20 14:18 93 02/09/20 13:58 94 02/09/20 11:16 94 02/09/20 08:08 97 02/09/20 07:20
[2020-02-09] MEDS: TAMSULOSIN HCL 0.4 MG CAP PO SCH (19:55)
[2020-02-10] MEDS ORDERED: METOPROLOL TARTRATE 1 MG/ML VIAL IV STA (04:07)
[2020-02-10] MEDS ORDERED: POTASSIUM CHLORIDE 20 MEQ TABCR PO ONE (04:15)
[2020-02-10] MEDS ORDERED: MAGNESIUM SULFATE / D5W 1 GM/100 ML BAG IV ONE (04:15)
[2020-02-10] MEDS: METOPROLOL TARTRATE 50 MG TAB PO SCH ×2 (04:31→19:43)
[2020-02-10 04:43] LABS: Basophils # (auto) 0.02 K/uL (0-0.2); Basophils % (auto) 0.3 %; Eosinophils # (auto) 0.12 K/uL (0-0.5); Hematocrit (blood only) 27.8 % (42-52); Hemoglobin 9.4 g/dL (14.0-18.0); Immature Granulocytes # (auto) 0.01 K/uL (0.00-0.02); Immature Granulocytes % (auto) 0.2 %; Lymphocytes % (auto) 14.9 %; Mean Corpuscular Hemoglobin 33.5 pg (25-34); Mean Corpuscular Hgb Conc 33.8 g/dL (32-36); Mean Corpuscular Volume 98.9 fL (80-100); Mean Platelet Volume 10.9 fL (7.4-10.4); Monocytes # (auto) 0.78 K/uL (0.11-0.59); Monocytes % (auto) 12.9 %; Neutrophils # (auto) 4.21 K/uL (1.4-6.5); Neutrophils % (auto) 69.7 %; Platelet Count 186 K/uL (130-400); RDW Coefficient of Variation 16.3 % (11.5-14.5); RDW Standard Deviation 57.5 fL (36.4-46.3); Red Blood Count 2.81 M/uL (4.7-6.1); White Blood Count 6.04 K/uL (4.8-10.8)
[2020-02-10 04:51] LABS: INR 1.9 (0.9-1.1); Prothrombin Time 19.8 Seconds (9.0-12.0)
[2020-02-10 05:01] LABS: BUN Creatinine Ratio 12.3 (10-20); Calcium 8.1 mg/dl (8.5-10.1); Creatinine Clr Calc Pharmacy 103.2 ml/min; Est GFR (African American) 100.6; Est GFR (Non-African American) 86.8; Magnesium 2.1 mg/dl (1.8-2.4); Potassium 3.6 mmol/L (3.5-5.1)
[2020-02-10] MEDS ORDERED: PHYTONADIONE 5 MG TAB PO ONE (08:23)
[2020-02-10] MEDS: FINASTERIDE 5 MG TAB PO SCH (08:41)
[2020-02-10] MEDS: AMIODARONE 200 MG TAB PO SCH (08:41)
[2020-02-10] MEDS: CEROVITE ADV FORMULA TAB PO SCH (08:41)
[2020-02-10] MEDS: ENALAPRIL MALEATE 10 MG TAB PO SCH ×2 (08:41→19:44)
[2020-02-10] MEDS: SIMVASTATIN 20 MG TAB PO SCH (08:42)
[2020-02-10] MEDS: DONEPEZIL HCL 5 MG TAB PO SCH (08:42)
[2020-02-10] MEDS ORDERED: PHYTONADIONE 5 MG TAB PO STA (10:40)
--- NOTE | 2020-02-10 10:46 | Cardiology Progress Note ---
Date of Service February 10, 2020 Assessment & Plan (1) Acute GI bleeding: (2) Elevated INR: (3) Chronic diastolic heart failure: (4) PAF (paroxysmal atrial fibrillation): The patient is currently clinically stable. According to nursing he has had no additional bleeding and brown stools today however, the patient who may have early dementia states he has had some blood per rectum. His INR has increased and he is getting some vitamin K today. His blood counts are stable after his blood transfusion. If he continues to bleed however, then I think the GI service is going to need to follow-up and help us with his treatment. Subjective No new cardiac complaints today. The patient had a short episode of atrial fibrillation last night that was stable. He is currently in sinus rhythm. He also received a unit of blood yesterday. Review of Systems Review of Systems: All systems reviewed & are unremarkable except as noted in HPI & below Nothing additional to add. Physical Exam Physical Exam: General: no acute distress and stated age Head: normocephalic, no masses, lesions, tenderness or abnormalities Eyes: conjunctiva are pink and non-injected, sclera clear Neck: supple, no adenopathy, no bruits, normal jugular venous pulse, no hepatoj ugular reflux Chest: normal shape and normal respiratory effort Lungs: clear to auscultation and percussion Cardiac Exam: - regular rate & rhythm, no murmurs gallops or rubs - normal S1, normal S2 Pulses: 2(+) throughout Abdomen: abdomen soft, non-tender, no abnormal masses and no hepatosplenomegaly Musculoskeletal: no gait disturbance, no joint inflammation, no deforming arthritis Extremities: no edema and no cyanosis Neuro: grossly normal exam Results & Data Vital Signs (Past 12 Hours) Vital Signs Temp Pulse Pulse Resp BP BP Pulse Ox 02/10/20 07:00 36.7 C 64 16 111/70 98 02/10/20 04:46 112 H 144/92 H 02/10/20 04:01 37.0 C 114 H 17 144/92 H 96 02/09/20 23:08 36.9 C 94 H 16 152/94 H 97 Laboratory Results Laboratory Results - last 24 hr 02/09/20 02/10/20 02/10/20 11:57 04:14 04:14 WBC 6.04 RBC 2.81 L Hgb 9.4 L Hct 27.8 L MCV 98.9 MCH 33.5 MCHC 33.8 RDW Std Deviation 57.5 H RDW Coeff of Anisa 16.3 H Plt Count 186 MPV 10.9 H Immature Gran % (Auto) 0.2 Neut % (Auto) 69.7 Lymph % (Auto) 14.9 [place] % (Auto) 12.9 Eos % (Auto) 2.0 Baso % (Auto) 0.3 Immature Gran # (Auto) 0.01 Neut # (Auto) 4.21 Lymph # (Auto) 0.90 L [place] # (Auto) 0.78 H Eos # (Auto) 0.12 Baso # (Auto) 0.02 PT INR Sodium 140 Potassium 3.6 Chloride 113 H Carbon Dioxide 28 Anion Gap -1.0 L BUN 10 Creatinine 0.80 Est Cr Clr Drug Dosing 103.2 Est GFR ( Amer) 100.6 Est GFR (Non-Af Amer) 86.8 BUN/Creatinine Ratio 12.3 Glucose 97 Calcium 8.1 L Magnesium 2.1 Blood Type A Positive Antibody Screen NEGATIVE Crossmatch See Detail 02/10/20 04:14 WBC RBC Hgb Hct MCV MCH MCHC RDW Std Deviation RDW Coeff of Anisa Plt Count MPV Immature Gran % (Auto) Neut % (Auto) Lymph % (Auto) [place] % (Auto) Eos % (Auto) Baso % (Auto) Immature Gran # (Auto) Neut # (Auto) Lymph # (Auto) [place] # (Auto) Eos # (Auto) Baso # (Auto) PT 19.8 H INR 1.9 H Sodium Potassium Chloride Carbon Dioxide Anion Gap BUN Creatinine Est Cr Clr Drug Dosing Est GFR ( Amer) Est GFR (Non-Af Amer) BUN/Creatinine Ratio Glucose Calcium Magnesium Blood Type Antibody Screen Crossmatch Medications Administered Current Inpatient Medications Acetaminophen (Tylenol) 650 mg PO Q4H PRN PRN Reason: Pain or Fever Stop: 03/06/20 03:28 Amiodarone HCl (Cordarone) [facility] [place] Stop: 03/08/20 02:44 Last Admin: 02/10/20 08:41 Dose: 200 mg Documented by: Donepezil HCl (Aricept) 5 mg PO DAILY [facility] Stop: 03/06/20 08:59 Last Admin: 02/10/20 08:42 Dose: 5 mg Documented by: Enalapril Maleate (Vasotec) 20 mg PO BID [facility] Stop: 03/06/20 08:59 Last Admin: 02/10/20 08:41 Dose: 20 mg Documented by: Finasteride (Proscar) 5 mg PO QAM [facility] Stop: 03/06/20 08:59 Last Admin: 02/10/20 08:41 Dose: 5 mg Documented by: Metoprolol Tartrate (Lopressor) 50 mg PO BID [facility] Stop: 03/11/20 04:14 Last Admin: 02/10/20 04:31 Dose: 50 mg Documented by: Multivitamins/Minerals (Multivitamin W/ Minerals Tab) 1 [facility] Stop: 03/06/20 08:59 Last Admin: 02/10/20 08:41 Dose: 1 tab Documented by: Nitroglycerin (Nitrostat) 0.4 mg SL UD PRN PRN Reason: Chest Pain Stop: 03/06/20 03:28 Olanzapine (Zyprexa) 2.5 mg IM Q4H PRN PRN Reason: Anxiety/Agitation Stop: 03/09/20 00:38 Ondansetron HCl (Zofran) 4 mg IV Q6H PRN PRN Reason: Nausea Stop: 03/06/20 03:28 Phytonadione (Mephyton) 2.5 mg PO NOW ST[facility] Stop: 02/10/20 10:41 Simvastatin (Zocor) 20 mg PO QAM [facility] Stop: 03/06/20 08:59 Last Admin: 02/10/20 08:42 Dose: 20 mg Documented by: Tamsulosin HCl (Flomax) 0.4 mg PO [facility] Stop: 03/06/20 20:59 Last Admin: 02/09/20 19:55 Dose: 0.4 mg Documented by:
--- NOTE | 2020-02-10 16:43 | Hospitalist Progress Note ---
Date of Service February 10, 2020 Assessment & Plan (1) Acute GI bleeding: Anemia Possible Warfarin related GI bleed due to Supratherapeutic INR on admission Hgb on admission 10.8, Hemoglobin dropped from 12.2 on Was starting on PPI drip Hemoglobin improved to 9.4 today after received 1 unit PRBC Gastro on board No plan for inpatient colonoscopy Diet advanced to full liquid diet Tolerated diet PPI drip was discontinued Transfused 1 unit PRBC on 02/08 Continue monitor H/H and transfused if hemoglobin less than 8 case discussed with GI about anticoagulant on discharge, but would like to defer to cardio Continue to hold aspirin and coumadin on discharge Will discuss with GI in am if GI bleed continues Continue monitor cloesely (2) Elevated INR: INR noted to be very high at 9.7 on admission Received intravenous vitamin K odmission INR 1.9 today Since pt continues to have dark stools, will given vit K po today GI deferred anticoagulant to cardio Continue to hold Coumadin due to GI bleed Monitor PT/INR (3) Paroxysmal atrial flutter: Has been in/out Afib Heart rate controlled with metoprolol and amiodarone metoprolol increased to 50mg BID Warfarin and aspirin on hold due to GI bleed Will keep K above 4 and Mg 2 Denies any symptoms Case discussed with cardiology that recommended to hold off on restarting anticoagulation until outpatient colonoscopy is performed. Son was made aware by otm consultant and agreed with the plan (4) Dementia: Has dementia No acute delirium (5) HTN (hypertension): Blood pressure stable On Enalapril and metoprolol Continue monitor (6) Chronic diastolic heart failure: No acute exacerbation Hyperlipidemia on statin BPH on Flomax DVT prophylaxis SCDs due to rectal bleed Admission and Anticipated Discharge Date Admission Date: February 05, 2020 Subjective Pt was seen and examined Lying in bed with no distress Pt continues to have dark bowel movements He has been in and out Afib Denies any chest pain, palpitation, dizziness and SOB Physical Exam Physical Exam: General- No acute distress Head- atraumatic Eyes- PERRL, EOMI, ENT- oropharynx clear Neck- supple, no JVD Lungs- clear to auscultation Heart- regular rhythm Abdomen- normal bowel sounds, soft, nontender Extremities- no calf tenderness Neuro- alert, oriented; PERRL, EOMI; no facial palsy; no dysarthria Skin- warm & dry Results & Data Results & Data ([facility]) Vital Signs (Past 12 Hours) Vital Signs Temp Pulse Pulse Resp BP BP BP 02/10/20 15:18 36.7 C 111 H 19 162/83 H 02/10/20 12:00 68 20 136/78 02/10/20 07:00 36.7 C 64 16 111/70 02/10/20 04:46 112 H 144/92 H Pulse Ox 02/10/20 15:18 98 02/10/20 12:00 98 02/10/20 07:00 98 02/10/20 04:46
[2020-02-10] MEDS: TAMSULOSIN HCL 0.4 MG CAP PO SCH (19:43)
[2020-02-11 06:10] LABS: Hematocrit (blood only) 28.2 % (42-52); Hemoglobin 9.4 g/dL (14.0-18.0); Mean Corpuscular Hemoglobin 33.5 pg (25-34); Mean Corpuscular Hgb Conc 33.3 g/dL (32-36); Mean Corpuscular Volume 100.4 fL (80-100); Mean Platelet Volume 10.2 fL (7.4-10.4); Platelet Count 220 K/uL (130-400); RDW Coefficient of Variation 15.9 % (11.5-14.5); RDW Standard Deviation 57.6 fL (36.4-46.3); Red Blood Count 2.81 M/uL (4.7-6.1); White Blood Count 4.76 K/uL (4.8-10.8)
[2020-02-11 06:20] LABS: INR 1.5 (0.9-1.1); Prothrombin Time 15.1 Seconds (9.0-12.0)
[2020-02-11 06:38] LABS: BUN Creatinine Ratio 13.1 (10-20); Creatinine Clr Calc Pharmacy 108.6 ml/min; Est GFR (African American) 102.7; Est GFR (Non-African American) 88.6; Magnesium 2.2 mg/dl (1.8-2.4); Potassium 3.8 mmol/L (3.5-5.1)
[2020-02-11] MEDS: ENALAPRIL MALEATE 10 MG TAB PO SCH ×2 (08:24→20:03)
[2020-02-11] MEDS: DONEPEZIL HCL 5 MG TAB PO SCH (08:25)
[2020-02-11] MEDS: AMIODARONE 200 MG TAB PO SCH (08:25)
[2020-02-11] MEDS: CEROVITE ADV FORMULA TAB PO SCH (08:25)
[2020-02-11] MEDS: METOPROLOL TARTRATE 50 MG TAB PO SCH ×2 (08:25→20:04)
[2020-02-11] MEDS: FINASTERIDE 5 MG TAB PO SCH (08:25)
[2020-02-11] MEDS: SIMVASTATIN 20 MG TAB PO SCH (08:25)
[2020-02-11] MEDS ORDERED: PHYTONADIONE 5 MG TAB PO STA (10:22)
--- NOTE | 2020-02-11 10:28 | Cardiology Progress Note ---
Date of Service February 11, 2020 Assessment & Plan (1) Acute GI bleeding: (2) Chronic diastolic heart failure: (3) Elevated INR: (4) Dementia: (5) PAF (paroxysmal atrial fibrillation): The patient is clinically stable his blood counts are holding. His INR remains elevated and I will give him additional vitamin K today. The patient has had no stools today. Subjective Patient has no new complaints today. Review of Systems Review of Systems: All systems reviewed & are unremarkable except as noted in HPI & below Nothing additional to add Physical Exam Physical Exam: General: no acute distress and stated age Head: normocephalic, no masses, lesions, tenderness or abnormalities Eyes: conjunctiva are pink and non-injected, sclera clear Neck: supple, no adenopathy, no bruits, normal jugular venous pulse, no hepatojugular reflux Chest: normal shape and normal respiratory effort Lungs: clear to auscultation and percussion Cardiac Exam: - regular rate & rhythm, no murmurs gallops or rubs - normal S1, normal S2 Pulses: 2(+) throughout Abdomen: abdomen soft, non-tender, no abnormal masses and no hepatosplenomegaly Musculoskeletal: no gait disturbance, no joint inflammation, no deforming arthritis Extremities: no edema and no cyanosis Neuro: grossly normal exam Results & Data Vital Signs (Past 12 Hours) Vital Signs Temp Pulse Pulse Resp BP BP Pulse Ox 02/11/20 08:00 126 H 02/11/20 07:55 36.8 C 113 H 20 118/76 98 02/11/20 00:07 37.1 C 113 H 18 113/79 96 02/10/20 23:09 108 H Laboratory Results Laboratory Results - last 24 hr 02/11/20 02/11/20 02/11/20 05:45 05:45 05:45 WBC 4.76 L RBC 2.81 L Hgb 9.4 L Hct 28.2 L MCV 100.4 H MCH 33.5 MCHC 33.3 RDW Std Deviation 57.6 H RDW Coeff of Anisa 15.9 H Plt Count 220 MPV 10.2 PT 15.1 H INR 1.5 H Sodium 143 Potassium 3.8 Chloride 111 H Carbon Dioxide 28 Anion Gap 4.0 BUN 10 Creatinine 0.76 Est Cr Clr Drug Dosing 108.6 Est GFR ( Amer) 102.7 Est GFR (Non-Af Amer) 88.6 BUN/Creatinine Ratio 13.1 Glucose 87 Calcium 8.0 L Magnesium 2.2 Medications Administered Current Inpatient Medications Acetaminophen (Tylenol) 650 mg PO Q4H PRN PRN Reason: Pain or Fever Stop: 03/06/20 03:28 Amiodarone [facility] (C[facility]one) [facility] [place]: 03/08/20 02:44 Last Admin: 02/11/20 08:25 Dose: 200 mg Documented by: Donepezil HCl (Aricept) 5 mg PO DAILY [facility] Stop: 03/06/20 08:59 Last Admin: 02/11/20 08:25 Dose: 5 mg Documented by: Enalapril Maleate (Vasotec) 20 mg PO BID [facility] Stop: 03/06/20 08:59 Last Admin: 02/11/20 08:24 Dose: 20 mg Documented by: Finasteride (Proscar) 5 mg PO QAM [facility] Stop: 03/06/20 08:59 Last Admin: 02/11/20 08:25 Dose: 5 mg Documented by: Metoprolol Tartrate (Lopressor) 50 mg PO BID [facility] Stop: 03/11/20 04:14 Last Admin: 02/11/20 08:25 Dose: 50 mg Documented by: Multivitamins/Minerals (Multivitamin W/ Minerals Tab) 1 tab PO [facility] Stop: 03/06/20 08:59 Last Admin: 02/11/20 08:25 Dose: 1 tab Documented by: Nitroglycerin (Nitrostat) 0.4 mg SL UD PRN PRN Reason: Chest Pain Stop: 03/06/20 03:28 Olanzapine (Zyprexa) 2.5 mg IM Q4H PRN PRN Reason: Anxiety/Agitation Stop: 03/09/20 00:38 Ondansetron HCl (Zofran) 4 mg IV Q6H PRN PRN Reason: Nausea Stop: 03/06/20 03:28 Simvastatin (Zocor) [facility] [place] Stop: 03/06/20 08:59 Last Admin: 02/11/20 08:25 Dose: 20 mg Documented by: Tamsulosin HCl (Flomax) 0.4 mg PO HS [facility] Stop: 03/06/20 20:59 Last Admin: 02/10/20 19:43 Dose: 0.4 mg Documented by:
--- NOTE | 2020-02-11 11:31 | Gastroenterology Progress Note ---
Date of Service February 11, 2020 Assessment & Plan (1) Bloody stools: Pt is a 74 y/o who was seen by GI last week for painless rectal bleeding, supratherapeutic INR >9 on Coumadin for Afib. Coumadin held since 02/05/2020, INR now 1.5. Pt continues to have dark bloody stools, last BM yesterday. His Hgb did drop to 7, PRBC transfused on 02/[address] stable x 2 days now. - Protonix 40mg PO BID - CL diet today, NPO after midnight - Plan for EGD/colonoscopy tomorrow 02/[address] Jaimes. Bowel prep ordered. - Monitor blood ct and transfuse prn. Monitor INR Admission and Anticipated Discharge Date Admission Date: February 05, 2020 Supervising Physician Co-Signing Physician Notes I performed a history and physical examination of the patient today, including specifically on physical exam - soft abdomen. I have discussed the patient's management with the advanced practitioner. Please refer to the nurse practitioner's note for the documented findings and plan of care. Anemia with rectal bleeding in the setting of Coumadin use. Plan for EGD and colonoscopy tomorrow. Subjective GI recalled as pt had persistent dark bloody stools, last BM 02/11/20. His Coumadin had been held since 02/05/2020. INR 1.5 He denies any abd pain, n/v. Stools are formed per his report Review of Systems Review of Systems: All systems reviewed & are unremarkable except as noted in HPI & below Physical Exam Constitutional: WD/WN, vitals as above well groomed, cooperative and comfortable Eyes: PERRL, conjunctivae normal, anicteric sclerae Respiratory: normal respiratory effort, lungs clear to auscultation Cardiovascular: RRR, no murmur, no edema Gastrointestinal (Abdomen): normal bowel sounds, soft, nontender, no hepatosplenomegaly Skin: no rashes, warm and dry no jaundice Psychiatric: A+Ox3, euthymic affect Lymphatic: no lymphedema Results & Data ([facility]) Vital Signs (Past 12 Hours) Vital Signs Temp Pulse Pulse Resp BP BP Pulse Ox 02/11/20 08:00 126 H 02/11/20 07:55 36.8 C 113 H 20 118/76 98 02/11/20 00:07 37.1 C 113 H 18 113/79 96 02/10/20 23:09 108 H
--- NOTE | 2020-02-11 14:19 | Hospitalist Progress Note ---
Date of Service February 11, 2020 Assessment & Plan (1) Acute GI bleeding: Anemia Possible Warfarin related GI bleed due to Supratherapeutic INR on admission Hgb on admission 10.8, Hemoglobin dropped from 12.2 on Was starting on PPI drip Hemoglobin improved to 9.4 today after received 1 unit PRBC Gastro on board No plan for inpatient colonoscopy Diet advanced to full liquid diet Tolerated diet PPI drip was discontinued Transfused 1 unit PRBC on 02/08 Continue monitor H/H and transfused if hemoglobin less than 8 case discussed with GI about anticoagulant on discharge, but would like to defer to cardio Continue to hold aspirin and coumadin on discharge Case discussed with GI that plan for colonoscopy and EGD in am Will make NPO after midnight Clear liquid diet for tonight and GI prep as per GI Continue monitor closely (2) Elevated INR: INR noted to be very high at 9.7 on admission Received intravenous vitamin K odmission INR 1.5 today Since pt was having dark stools yesterday, so Vit K given Will give additional Vit K today GI deferred anticoagulant to cardio Continue to hold Coumadin due to GI bleed Monitor PT/INR (3) Paroxysmal atrial flutter: Has been in/out Afib Heart rate controlled with metoprolol and amiodarone metoprolol increased to 50mg BID Warfarin and aspirin on hold due to GI bleed Will keep K above 4 and Mg 2 Denies any symptoms Case discussed with cardiology that recommended to hold off on restarting anticoagulation until outpatient colonoscopy is performed. Son was made aware by road test examiner and agreed with the plan (4) Dementia: Has dementia No acute delirium (5) HTN (hypertension): Blood pressure stable On Enalapril and metoprolol Continue monitor (6) Chronic diastolic heart failure: No acute exacerbation Hyperlipidemia on statin BPH on Flomax DVT prophylaxis SCDs due to rectal bleed Admission and Anticipated Discharge Date Admission Date: February 05, 2020 Subjective Pt was seen and examined Lying in bed with no distress Pt said that he feels fine He said that he did not have a bowel movement yet this morning Yesterday he was having dark stool Denies any chest pain, palpitation, dizziness and SOB Physical Exam Physical Exam: General- No acute distress Head- atraumatic Eyes- PERRL, EOMI, ENT- oropharynx clear Neck- supple, no JVD Lungs- clear to auscultation Heart- regular rhythm Abdomen- normal bowel sounds, soft, nontender Extremities- no calf tenderness Neuro- alert, oriented; PERRL, EOMI; no facial palsy; no dysarthria Skin- warm & dry Results & Data Results & Data ([facility]) Vital Signs (Past 12 Hours) Vital Signs Temp Pulse Pulse Resp BP BP Pulse Ox 02/11/20 12:10 37.1 C 108 H 18 118/80 93 02/11/20 08:00 126 H 02/11/20 07:55 36.8 C 113 H 20 118/76 98
[2020-02-11] MEDS ORDERED: POLYETHYLENE (MIRALAX) 17 GM PACK PO ONE ×2 (17:00→21:00)
[2020-02-11] MEDS ORDERED: bisacodyL 5 MG TABEC PO ONE (17:00)
[2020-02-11] MEDS: TAMSULOSIN HCL 0.4 MG CAP PO SCH (20:03)
[2020-02-11] MEDS: PANTOprazole 40 MG TAB PO SCH (20:04)
[2020-02-12 07:51] LABS: Hematocrit (blood only) 29.6 % (42-52); Hemoglobin 9.8 g/dL (14.0-18.0); Mean Corpuscular Hgb Conc 33.1 g/dL (32-36); Mean Corpuscular Volume 99.7 fL (80-100); Mean Platelet Volume 10.2 fL (7.4-10.4); Platelet Count 241 K/uL (130-400); RDW Coefficient of Variation 15.8 % (11.5-14.5); RDW Standard Deviation 57.1 fL (36.4-46.3); Red Blood Count 2.97 M/uL (4.7-6.1); White Blood Count 4.16 K/uL (4.8-10.8)
[2020-02-12 08:01] LABS: INR 1.3 (0.9-1.1); Prothrombin Time 13.7 Seconds (9.0-12.0)
[2020-02-12 08:29] LABS: BUN Creatinine Ratio 17.2 (10-20); Calcium 8.1 mg/dl (8.5-10.1); Creatinine Clr Calc Pharmacy 112.4 ml/min; Est GFR (African American) 104.4; Est GFR (Non-African American) 90.1; Potassium 3.4 mmol/L (3.5-5.1)
[2020-02-12] MEDS ORDERED: LIDOCAINE HCL 2% 2 ML VIAL/AMP(20MG/ML) INFIL ONE (09:11)
[2020-02-12] MEDS ORDERED: PROPOFOL IV EMULSION 10 MG/ML 20 ML VIAL IV ONE (09:11)
--- NOTE | 2020-02-12 09:15 | History & Physical Bridge Note ---
Date of Service February 12, 2020 History & Physical Bridge Note I have examined the patient, reviewed the History & Physical and in the interval since the performance of the History & Physical I have noted the following changes of clinical significance: no changes noted I discussed the risk and benefit with the patient's son and he consented.
--- NOTE | 2020-02-12 09:30 | Anesthesiology Consultation ---
Date of Service February 12, 2020 Assessment & Plan (1) Encounter for pre-operative examination: Chart Review Chart Review: Acceptable Risk for Surgery and entry level staff accountant initiated Consults Requested none History Surgery Operation Date: 02/12/20 11:00 Proposed Procedures p Colonoscopy EGD Dr. Jaimes - Leticia Jaimes MD Height/Weight Height: 6 ft 2 in Weight: 107.5 kg Allergies Allergy/AdvReac Type Severity Reaction Status Date / Time Penicillins Allergy Unknown Rash Verified 02/05/20 01:48 Medications Home Medications Medication Instructions Recorded Confirmed Last Taken Centrum Silver 1 tab PO QAM 01/20/19 02/05/20 01/20/19 amiodarone 200 mg PO QAM 01/20/19 02/05/20 01/20/19 aspirin 81 mg PO QAM 01/20/19 02/05/20 01/20/19 donepezil 5 mg PO DAILY 01/20/19 02/05/20 01/20/19 enalapril maleate 20 mg PO BID 01/20/19 02/05/20 01/20/19 AM DOSE finasteride 5 mg PO QAM 01/20/19 02/05/20 01/20/19 metoprolol tartrate 37.5 mg PO BID 01/20/19 02/05/20 01/20/19 AM DOSE omeprazole 20 mg PO QAM 01/20/19 02/05/20 01/20/19 simvastatin 20 mg PO QAM 01/20/19 02/05/20 01/20/19 tamsulosin 0.4 mg PO HS 01/20/19 02/05/20 01/19/19 warfarin See Rx Instructions .ROUTE .COMPLEX 01/20/19 02/05/20 01/20/19 2 MG Active Medications Generic Name Dose Route Start Last Admin Trade Name Freq PRN Reason Stop Dose Admin Amiodarone HCl 200 mg 02/07/20 02:45 02/11/20 08:25 Cordarone PO 03/08/20 02:44 200 mg QAM [facility]LAN Administration Donepezil HCl 5 mg 02/05/20 09:00 02/11/20 08:25 Aricept PO 03/06/20 08:59 5 mg DAILY [facility] Administration Enalapril Maleate 20 mg 02/05/20 09:00 02/11/20 20:03 Vasotec PO 03/06/20 08:59 20 mg BID [facility] Administration Finasteride 5 mg 02/05/20 09:00 02/11/20 08:25 Proscar PO 03/06/20 08:59 5 mg QAM [facility] Administration Metoprolol Tartrate 50 mg 02/10/20 04:15 02/11/20 20:04 Lopressor PO 03/11/20 04:14 50 mg BID [facility]AN Administration Multivitamins/Minerals 1 tab 02/05/20 09:00 02/11/20 08:25 Multivitamin W/ Minerals Tab PO 03/06/20 08:59 1 tab QAM [facility] Administration Pantoprazole Sodium 40 mg 02/11/20 21:00 02/11/20 20:04 Protonix PO 03/12/20 20:59 40 mg BID [facility] Administration Simvastatin 20 mg 02/05/20 09:00 02/11/20 08:25 Zocor PO 03/06/20 08:59 20 mg QAM [facility] Administration Tamsulosin HCl 0.4 mg 02/05/20 21:00 02/11/20 20:03 Flomax PO 03/06/20 20:59 0.4 mg HS [facility]LAN Administration NPO Date Last Intake of Fluids: 02/11/20 Time Last Intake of Fluids: 21:00 Date Last Intake of Solids: 02/11/20 Time Last Intake of Solids: 21:00 Past Medical History Medical History Atrial fibrillation with RVR (Resolved) Constipation (Chronic) Dyslipidemia (Chronic) GERD (gastroesophageal reflux disease) (Chronic) Hematuria HTN (hypertension) (Chronic) half-way (current) use of anticoagulants (Chronic) PAF (paroxysmal atrial fibrillation) (Chronic) Past Family History Family History Other Family history non-contributory Past Surgical History Surgical History H/O hernia repair Social History Smoking Status: Former smoker tobacco type: pipe Hx Alcohol Use: Yes Alcohol type: beer alcohol intake frequency: a few times a month Hx Substance Use: No substance use type: does not use Physical Exam Vital Signs Last Vital Signs Temp 36.4 C L 02/12/20 09:12 Pulse 121 H 02/12/20 09:12 Resp 19 02/12/20 09:12 BP 113/78 02/12/20 09:12 Pulse Ox 97 02/12/20 09:12 Testing Laboratory Results 02/12/20 07:20 02/12/20 07:20 PT 13.7 Seconds (9.0-12.0) H 02/12/20 07:20 INR 1.3 (0.9-1.1) H 02/12/20 07:20 APTT 44.9 Seconds (21.0-31.0) H 02/05/20 00:53 Urine Color Dark Yellow 02/08/20 01:55 Urine Appearance Clear (Clear) 02/08/20 01:55 Urine pH 5.0 (4.5-7.5) 02/08/20 01:55 Ur Specific [place] 1.020 (1.000-1.030) 02/08/20 01:55 Urine Protein Negative (Negative) 02/08/20 01:55 Urine Glucose (UA) Negative (Negative) 02/08/20 01:55 Urine Ketones Negative (Negative) 02/08/20 01:55 Urine Nitrite Negative (Negative) 02/08/20 01:55 Ur Leukocyte Esterase Trace (Negative) H 02/08/20 01:55 Urine WBC (Auto) 1-5 /hpf (0-5) 02/08/20 01:55 Urine RBC (Auto) 0-4 /hpf (0-4) 02/08/20 01:55 U Hyaline Cast (Auto) 1-5 /lpf (0-5) 02/08/20 01:55 U Epithel Cells (Auto) 5-10 /lpf (0-5) H 02/08/20 01:55 Urine Bacteria (Auto) Negative (Negative) 02/08/20 01:55 Blood Type A Positive 02/09/20 11:57 Antibody Screen NEGATIVE 02/09/20 11:57 Electrocardiogram Date: 02/05/20 Findings: + AFIB @ (94) Test Reason : Blood Pressure : / mmHG Vent. Rate : 094 BPM Atrial Rate : 081 BPM P-R Int : 000 ms QRS Dur : 140 ms QT Int : 418 ms P-R-T Axes : 000 -57 -07 degrees QTc Int : 522 ms Atrial fibrillation with premature ventricular or aberrantly conducted complexes Right bundle branch block Left anterior fascicular block Bifascicular block Abnormal ECG When compared with ECG of 05-FEB-2020 00:52, (unconfirmed) Atrial fibrillation has replaced Sinus rhythm Confirmed by Markus Garrison ([id number]) on 02/06/2020 2:41:10 PM Chest X-Ray Date: 01/20/19 Findings: + NAD Echocardiogram Date: 01/22/19 EF: 60-65 LV Function: normal Valvular Disease: + (moderate)
[2020-02-12] MEDS ORDERED: PHENYLEPHRINE 100MCG/ML 5ML SYR ONE (10:49)
[2020-02-12] MEDS ORDERED: ePHEDrine sulfate 50 MG/ML SYR ONE (10:49)
--- NOTE | 2020-02-12 10:55 | GI REPORT ---
Patient Name: Robert Ojeda Procedure Date: 02/12/2020 8:58 AM Date of : 1945 Admit Type: Inpatient Age: 74 Gender: Male Attending MD: Leticia Jaimes MD Procedure: Upper GI endoscopy Providers: Leticia Jaimes MD Referring MD: ARIAN DELEON Indications: Hematochezia Medicines: Propofol per Anesthesia Complications: No immediate complications. Estimated Blood Loss: Estimated blood loss: none. Procedure: Pre-Anesthesia Assessment: - Prior to the procedure, a History and Physical was performed, and patient medications, allergies and sensitivities were reviewed. The patient's tolerance of previous anesthesia was reviewed. - The risks and benefits of the procedure and the sedation options and risks were discussed with the patient. All questions were answered and informed consent was obtained. - Patient identification and proposed procedure were verified prior to the procedure by the physician and the nurse. The procedure was verified in the procedure room. - Pre-procedure physical examination revealed no contraindications to sedation. After obtaining informed consent, the endoscope was passed under direct vision. Throughout the procedure, the patient's blood pressure, pulse, and oxygen saturations were monitored continuously. The Endoscope was introduced through the mouth, and advanced to the second part of duodenum. The upper GI endoscopy was accomplished without difficulty. The patient tolerated the procedure well. Findings: The examined esophagus was normal. The Z-line was regular and was found 40 cm from the incisors. Two 8 mm sessile polyps with no bleeding were found in the gastric body and in the gastric antrum. The polyp was removed with a cold snare. Resection and retrieval were complete. Verification of patient identification for the specimen was done by the physician and nurse using the patient's name and date. To prevent bleeding after the polypectomy, four hemostatic clips were successfully placed (MR conditional). The duodenal bulb and second portion of the duodenum were normal. Biopsies were taken with a cold forceps for histology. Impression: - Normal esophagus. - Z-line regular, 40 cm from the incisors. - Two gastric polyps. Resected and retrieved. Clips (MR conditional) were placed. - Normal duodenal bulb and second portion of the duodenum. Biopsied. Recommendation: - Await pathology results. - Perform a colonoscopy today. Leticia Jaimes MD 02/12/2020 10:54:43 AM This report has been signed electronically. Note Initiated On: 02/12/2020 8:58 AM Number of Addenda: 0 I attest to the content of the Intraoperative Record and orders documented therein, exceptions below {[id number]}
--- NOTE | 2020-02-12 11:01 | GI REPORT ---
Patient Name: Robert Ojeda Procedure Date: 02/12/2020 8:57 AM Date of : 1945 Admit Type: Inpatient Age: 74 Gender: Male Attending MD: Leticia Jaimes MD Procedure: Colonoscopy Providers: Leticia Jaimes MD Referring MD: ARIAN DELEON Indications: Rectal bleeding Medicines: Propofol per Anesthesia Complications: No immediate complications. Estimated Blood Loss: Estimated blood loss: none. Procedure: Pre-Anesthesia Assessment: - Prior to the procedure, a History and Physical was performed, and patient medications, allergies and sensitivities were reviewed. The patient's tolerance of previous anesthesia was reviewed. - The risks and benefits of the procedure and the sedation options and risks were discussed with the patient. All questions were answered and informed consent was obtained. - Patient identification and proposed procedure were verified prior to the procedure by the physician and the nurse. The procedure was verified in the procedure room. - Pre-procedure physical examination revealed no contraindications to sedation. After I obtained informed consent, the scope was passed under direct vision. Throughout the procedure, the patient's blood pressure, pulse, and oxygen saturations were monitored continuously. The scope was introduced through the anus with the intention of advancing to the cecum. The scope was advanced to the ascending colon before the procedure was aborted. Medications were given. The colonoscopy was performed without difficulty. The patient tolerated the procedure well. The quality of the bowel preparation was poor. Findings: The perianal and digital rectal examinations were normal. A 8 mm polyp was found in the ascending colon. The polyp was sessile. The polyp was removed with a cold snare. Resection and retrieval were complete. Verification of patient identification for the specimen was done by the physician and nurse using the patient's name and date. Segmental inflammation characterized by loss of vascularity and shallow ulcerations was found in the sigmoid colon and in the descending colon at 40 cm from the anal verge. Biopsies were taken with a cold forceps for histology. Non-bleeding internal hemorrhoids were found during retroflexion. The hemorrhoids were small. Impression: - Preparation of the colon was poor, procedure completed to the ascending colon only. - One 8 mm polyp in the ascending colon, removed with a cold snare. Resected and retrieved. - Segmental inflammation was found in the sigmoid and descending colon likely secondary to ischemic colitis. Biopsied. - Non-bleeding internal hemorrhoids. Recommendation: - Return patient to hospital [facility] for ongoing care. - Await pathology results. - CT scan of the abdomen and pelvix with IV contrast. - IV ABx (Cipro/Flagyl). - May resume Coumadin in 3 days. - Repeat colonoscopy in 3 months to check healing and complete the exam. Leticia Jaimes MD 02/12/2020 11:00:52 AM This report has been signed electronically. Note Initiated On: 02/12/2020 8:57 AM Number of Addenda: 0 I attest to the content of the Intraoperative Record and orders documented therein, exceptions below {[id number]}
--- NOTE | 2020-02-12 11:42 | Anesthesiology Progress Note ---
Date of Service February 12, 2020 Anesthesia Post Procedure Vital Signs Vital Signs: Temp Pulse Pulse Resp BP BP Pulse Ox 02/12/20 11:14 107 H 18 110/78 96 02/12/20 11:01 112 H 18 111/77 95 02/12/20 10:48 107 H 18 93/66 L 100 02/12/20 09:12 36.4 C L 121 H 19 113/78 97 02/12/20 08:20 110 H 02/12/20 07:34 36.6 C 112 H 18 99/67 L 94 02/12/20 03:12 36.8 C 119 H 18 98/65 L 96 02/12/20 00:00 130 H 02/11/20 23:42 36.8 C 107 H 18 104/66 93 02/11/20 19:18 36.8 C 100 H 19 147/86 H 94 02/11/20 15:17 37.0 C 111 H 20 121/76 94 02/11/20 12:10 37.1 C 108 H 18 118/80 93 Transfer of Care Handoff Completed per policy Notes Mental Status: alert / awake / arousable and participated in evaluation Patient Amnestic to Procedure: Yes Nausea / Vomiting: adequately controlled Pain: adequately controlled Airway Patency, RR, SpO2: stable & adequate BP & HR: stable & adequate Hydration State: stable & adequate Anesthetic Complications: no major complications apparent
[2020-02-12] MEDS: metroNIDAZOLE 500 MG/100 ML BAG IV SCH ×2 (11:49→19:45)
[2020-02-12] MEDS: METOPROLOL TARTRATE 50 MG TAB PO SCH ×2 (11:59→19:45)
[2020-02-12] MEDS: ENALAPRIL MALEATE 10 MG TAB PO SCH ×2 (11:59→19:45)
[2020-02-12] MEDS: PANTOprazole 40 MG TAB PO SCH ×2 (11:59→19:45)
[2020-02-12] MEDS: AMIODARONE 200 MG TAB PO SCH (11:59)
[2020-02-12] MEDS: SIMVASTATIN 20 MG TAB PO SCH (11:59)
[2020-02-12] MEDS: FINASTERIDE 5 MG TAB PO SCH (12:00)
[2020-02-12] MEDS: DONEPEZIL HCL 5 MG TAB PO SCH (12:00)
[2020-02-12] MEDS: CEROVITE ADV FORMULA TAB PO SCH (12:00)
[2020-02-12] MEDS: CIPROFLOXACIN / D5W 200 MG/100 ML BAG IV SCH (12:01)
[2020-02-12] MEDS ORDERED: IOVERSOL 100ml IV PRN (13:42)
--- NOTE | 2020-02-12 14:03 | CT Scan Report ---
CT SCAN OF THE ABDOMEN AND PELVIS WITH IV CONTRAST CLINICAL HISTORY: Hematochezia. COMPARISON STUDY: Abdominal CT dated 12/05/2017. TECHNIQUE: Following the IV administration of 94 cc of Optiray 320, CT scan of the abdomen and pelvi s is performed from the lung bases to the proximal femora. Images are reviewed in the axial, sagittal , and coronal planes. IV contrast was administered without complication. Oral contrast was utilized. A dose lowering technique was utilized adhering to the principles of ALARA. CT DOSE: 1365.68 mGy.cm FINDINGS: Lung bases: The heart is top normal in size and without pericardial effusion. The aortic valve leafle ts and mitral annulus are densely calcified. There are small pleural effusions with bibasilar atelect asis. Linear atelectasis/scarring is noted in the left lower lobe. A 4 mm nodular density in the righ t lower lobe as seen on image #36. There is a small hiatal hernia. Liver: The contrast-enhanced liver is normal in size, contour, and attenuation. There is no intrahepa tic biliary ductal dilatation. The hepatic veins and portal veins are patent. Gallbladder: Unremarkable. Spleen: Normal in size and attenuation. Pancreas: Moderately atrophic and grossly unremarkable. Adrenal glands: Unremarkable. Kidneys: The contrast enhanced kidneys demonstrate cortical atrophy and are without hydronephrosis. T he kidneys enhance symmetrically. A 7.7 cm cyst arises from the upper pole of left kidney. A 1.3 cm c yst is noted in the right lower pole. Bilateral nonobstructing renal calculi measure up to 7 mm. Abdominal vasculature: The abdominal aorta is normal in course and caliber noting mild to moderate at herosclerotic calcification. Bowel: Surgical clips are suggested in the stomach. There is no bowel obstruction. Enteric contrast r eaches the proximal transverse colon. There is a long segment of mildly thick-walled and edematous le ft colon with mild surrounding inflammation and trace fluid. This extends from the splenic flexure to the rectosigmoid, and is greatest in the sigmoid colon in the central pelvis. There is no pneumatosi s intestinalis or portal venous gas. Liquid stool is noted in the left colon. The appendix is normal as visualized. Peritoneum: No intraperitoneal free air is seen. There is trace abdominopelvic ascites. Lymphadenopathy: None. Pelvic viscera: The prostate gland is enlarged and heterogeneous, measuring 5.7 cm transverse diamete r. There is median lobe hypertrophy. The bladder wall is thickened and trabeculated indicating chroni c outlet obstruction. Skeletal structures: The skeletal structures are osteopenic. There is moderate to advanced lumbosacra l spondylosis. Large posterior disc osteophyte complexes are seen at all lumbar levels and likely con tribute to multilevel acquired compromise of the central canal. This is greatest at L1-L2. Degenerati ve changes noted in the sacroiliac joints with partial fusion on the right. No lytic or blastic lesio ns are seen. IMPRESSION: 1. Findings are consistent with a nonspecific colitis of the left colon. This could be on an infectio us, inflammatory, or ischemic basis and clinical correlation will be required. 2. There is trace abdominopelvic ascites. No intraperitoneal free air is seen and there is no pneumat osis intestinalis or portal venous gas. 3. No bowel obstruction is identified. 4. Bilateral nephrolithiasis. 5. Small pleural effusions with dependent atelectasis 6. There is a 4 mm nodular density identified in the right lower lobe. This is pathologically indeter minant and may be on an inflammatory basis. This was not seen on 12/05/2017, and follow-up in 2-3 month s time with a dedicated chest CT is recommended to document resolution. 7. Additional findings as above. ACT 112: Negative or not required by law. Electronically signed by: Dwayne Stewart M.D. 02/12/2020 2:02 PM
--- NOTE | 2020-02-12 16:42 | Hospitalist Progress Note ---
Date of Service February 12, 2020 Assessment & Plan (1) Acute GI bleeding: Anemia Possible Warfarin related GI bleed due to Supratherapeutic INR on admission Hgb on admission 10.8, Hemoglobin dropped from 12.2 on Was starting on PPI drip PPI drip was discontinued Transfused 1 unit PRBC on 02/08 Hgb 9.8 today Gastro on board CT abd/pelvis showed findings are consistent with a nonspecific colitis of the left colon. This could be on an infectious, inflammatory, or ischemic basis S/P EGD showed normal esophagus. 2 gastric polyps were removed. Normal duodenal bulb and second portion of the duodenum. Follow up biopsied result Colonoscopy done today with poor bowel prep. One 8 mm polyp in the ascending colon that was removed. Segmental inflammation was found in the sigmoid and descending colon likely secondary to ischemic colitis. Non-bleeding internal hemorrhoids. Follow up biopsied result Continue to hold aspirin and coumadin for now Continue monitor H/H and transfused if hemoglobin less than 8 Case discussed with GI and recommended to start on IV abx with Cipro and flagyl Coumadin can resume in 3 days if GI bleeding resolves Repeat colonoscopy in 3 months to check for healing (2) Elevated INR: INR noted to be very high at 9.7 on admission Received intravenous vitamin K odmission INR 1.5 yesterday Since pt was having dark stools yesterday, so Vit K given Will give additional Vit K today GI deferred anticoagulant to cardio Continue to hold Coumadin due to GI bleed Monitor PT/INR (3) Paroxysmal atrial flutter: Has been in/out Afib Heart rate controlled with metoprolol and amiodarone metoprolol increased to 50mg BID Warfarin and aspirin on hold due to GI bleed Will keep K above 4 and Mg 2 Denies any symptoms Case discussed with cardiology that recommended to hold off on restarting anticoagulation after colonoscopy Son was made aware by principal electrical engineer and agreed with the plan Consider to resume coumadin after 3 days (4) Dementia: Has dementia No acute delirium (5) HTN (hypertension): Blood pressure stable On Enalapril and metoprolol Continue monitor (6) Chronic diastolic heart failure: No acute exacerbation Hyperlipidemia on statin BPH on Flomax Lung Nodules CT showed 4 mm nodular density identified in the right lower lobe. This was not seen on 12/05/2017 Will need follow-up in 2-3 months time with a dedicated chest CT is recommended to document resolution. DVT prophylaxis SCDs due to rectal bleed Disposition Possible discharge tomorrow Admission and Anticipated Discharge Date Admission Date: February 05, 2020 Subjective Pt was seen and examined Lying in bed with no distress Denies any chest pain, palpitation and SOB Physical Exam Physical Exam: General- No acute distress Head- atraumatic Eyes- PERRL, EOMI, ENT- oropharynx clear Neck- supple, no JVD Lungs- clear to auscultation Heart- regular rhythm Abdomen- normal bowel sounds, soft, nontender Extremities- no calf tenderness Neuro- alert, oriented; PERRL, EOMI; no facial palsy; no dysarthria Skin- warm & dry Results & Data Results & Data ([facility]) Vital Signs (Past 12 Hours) Vital Signs Temp Pulse Pulse Resp BP BP Pulse Ox 02/12/20 15:42 36.3 C L 112 H 19 115/69 96 02/12/20 13:04 36.5 C 114 H 18 108/74 93 02/12/20 12:22 116 H 20 122/69 95 02/12/20 11:57 36.5 C 103 H 18 120/74 95 02/12/20 11:14 107 H 18 110/78 96 02/12/20 11:01 112 H 18 111/77 95 02/12/20 10:48 107 H 18 93/66 L 100 02/12/20 09:12 36.4 C L 121 H 19 113/78 97 02/12/20 08:20 110 H 02/12/20 07:34 36.6 C 112 H 18 99/67 L 94
[2020-02-12] MEDS: TAMSULOSIN HCL 0.4 MG CAP PO SCH (19:45)
[2020-02-13] MEDS: CIPROFLOXACIN / D5W 200 MG/100 ML BAG IV SCH ×2 (01:09→12:18)
[2020-02-13] MEDS: metroNIDAZOLE 500 MG/100 ML BAG IV SCH ×3 (04:08→19:48)
[2020-02-13] MEDS: CEROVITE ADV FORMULA TAB PO SCH (08:26)
[2020-02-13] MEDS: SIMVASTATIN 20 MG TAB PO SCH (08:26)
[2020-02-13] MEDS: PANTOprazole 40 MG TAB PO SCH ×2 (08:26→19:49)
[2020-02-13] MEDS: AMIODARONE 200 MG TAB PO SCH (08:26)
[2020-02-13] MEDS: ENALAPRIL MALEATE 10 MG TAB PO SCH ×2 (08:26→19:49)
[2020-02-13] MEDS: METOPROLOL TARTRATE 50 MG TAB PO SCH ×2 (08:26→19:49)
[2020-02-13] MEDS: FINASTERIDE 5 MG TAB PO SCH (08:26)
[2020-02-13] MEDS: DONEPEZIL HCL 5 MG TAB PO SCH (08:26)
[2020-02-13] MEDS ORDERED: POTASSIUM CHLORIDE 20 MEQ TABCR PO ONE (08:45)
--- NOTE | 2020-02-13 10:47 | Gastroenterology Progress Note ---
Date of Service February 13, 2020 Assessment & Plan (1) Bloody stools: Pt is a 74 y/o who was seen by GI last week for painless rectal bleeding, supratherapeutic INR >9 on Coumadin for Afib. Coumadin held since 02/05/2020, INR now 1.5. Pt continues to have dark bloody stools, last BM yesterday. His Hgb did drop to 7, PRBC transfused on 02/[address] stable x 3 days now. Benign EGD findings. Colonoscopy showed severe L ischemic colitis, poor prep limited visualization of rest of colon. CT abd/pelvis L colon colitis w/o signs of other masses. He did have small amt of bloody stool again after endoscopies yesterday, none today. - Continue Protonix 40mg PO BID - Continue Cipro/Flagyl IV antibx - Hold Coumadin 3 days after EGD/Colonoscopy - IVF hydration - Advance diet as tolerated - Repeat Colonoscopy in 3 month's time to eval for healing and complete colonoscopy - Monitor blood ct and transfuse prn. - Will sign off; pls recall GI prn Admission and Anticipated Discharge Date Admission Date: February 05, 2020 Supervising Physician Co-Signing Physician Notes I performed a history and physical examination of the patient today, including specifically on physical exam - soft abdomen. I have discussed the patient's management with the advanced practitioner. Please refer to the nurse practitioner's note for the documented findings and plan of care. Doing well. Continue ABx. Recall GI if needed. Subjective Pt reports small amt of bloody stool yesterday after his endoscopies. He denies abd pain, n/v. Also no CP, SOB. Tolerating CL diet well Review of Systems Review of Systems: All systems reviewed & are unremarkable except as noted in HPI & below Physical Exam Constitutional: WD/WN, vitals as above well groomed, cooperative and comfortable Eyes: PERRL, conjunctivae normal, anicteric sclerae ENMT: external ear and nose normal, oropharynx normal Respiratory: normal respiratory effort, lungs clear to auscultation Cardiovascular: Rate/Rhythm: + irregularly irregular Gastrointestinal (Abdomen): normal bowel sounds, soft, nontender, no hepatosplenomegaly Skin: no rashes, warm and dry no jaundice Psychiatric: A+Ox3, euthymic affect Lymphatic: no lymphedema Results & Data ([facility]) Vital Signs (Past 12 Hours) Vital Signs Temp Pulse Resp BP BP Pulse Ox 02/13/20 07:00 36.7 C 109 H 20 110/66 95 02/13/20 04:18 36.7 C 119 H 21 106/57 L 93 02/12/20 23:02 36.9 C 103 H 18 117/72 108 H
--- NOTE | 2020-02-13 12:08 | Hospitalist Progress Note ---
Date of Service February 13, 2020 Assessment & Plan (1) Acute GI bleeding: Anemia Possible Warfarin related GI bleed due to Supratherapeutic INR on admission Hgb on admission 10.8, Hemoglobin dropped from 12.2 on He was started with PPI drip and was discontinued later on Transfused 1 unit PRBC on 02/08 Hemoglobin remains stable at 9.8 as of 02/08/2020 CT abd/pelvis showed findings are consistent with a nonspecific colitis of the left colon. This could be on an infectious, inflammatory, or ischemic basis S/P EGD showed normal esophagus. 2 gastric polyps were removed. Normal duodenal bulb and second portion of the duodenum. Follow up biopsied result Colonoscopy was done with poor bowel prep. One 8 mm polyp in the ascending colon that was removed. Segmental inflammation was found in the sigmoid and descending colon likely secondary to ischemic colitis. Non-bleeding internal hemorrhoids. Follow up biopsied result Continue to hold aspirin and coumadin for now Continue monitor H/H and transfused if hemoglobin less than 8 Has been on intravenous Cipro and Flagyl following suspected ischemic colitis Coumadin can resume in 2 days if GI bleeding resolves Repeat colonoscopy in 3 months to check for healing (2) Elevated INR: INR noted to be very high at 9.7 on admission Received intravenous vitamin K odmission INR 1.5 yesterday Since pt was having dark stools yesterday, so Vit K given Will give additional Vit K today GI deferred anticoagulant to cardio Continue to hold Coumadin due to GI bleed Monitor PT/INR as an outpatient (3) Paroxysmal atrial flutter: Has been in/out Afib Heart rate controlled with metoprolol and amiodarone metoprolol increased to 50mg BID Warfarin and aspirin on hold due to GI bleed Will keep K above 4 and Mg 2 Denies any symptoms Case discussed with cardiology that recommended to hold off on restarting anticoagulation after colonoscopy Son was made aware by coating machine operator and agreed with the plan Consider to resume coumadin after 2 days (4) Dementia: Has dementia No acute delirium (5) HTN (hypertension): Blood pressure stable On Enalapril and metoprolol Continue monitor (6) Chronic diastolic heart failure: No acute exacerbation Hyperlipidemia on statin BPH on Flomax Lung Nodules CT showed 4 mm nodular density identified in the right lower lobe. This was not seen on 12/05/2017 Will need follow-up in 2-3 months time with a dedicated chest CT is recommended to document resolution. DVT prophylaxis SCDs due to rectal bleed Disposition We will advance diet and increase ambulation Possible discharge tomorrow Admission and Anticipated Discharge Date Admission Date: February 05, 2020 Subjective 02/13/2020 Patient was seen and examined in telemetry unit He was initially admitted with bright red blood per rectum and is now status post EGD and colonoscopy Denies any symptoms as of this morning Denies any abdominal pain, nausea and or vomiting and denies any bleeding per rectum. Review of Systems Review of Systems: All systems reviewed and are unremarkable except as noted below Constitutional: + weakness Gastrointestinal: no diarrhea/loose stools and no blood in stools Physical Exam Physical Exam: Lying in bed comfortably Constitutional: well developed and well nourished; no acute distress and not ill appearing Eyes: PERRL, conjunctivae normal, anicteric sclerae ENMT: external ear and nose normal, oropharynx normal Neck: trachea midline, no thyromegaly Respiratory: normal respiratory effort Auscultation: lungs clear to auscultation bilaterally Cardiovascular: Rate/Rhythm: + abnormal rate and + abnormal rhythm Heart Sounds: + murmur (2/6 ESM over precordium) Gastrointestinal (Abdomen): Inspection/Auscultation: abdomen normal to inspection and normal bowel sounds Percussion/Palpation: abdomen soft; abdomen nontender (Mildly tender lower left quadrant) Musculoskeletal: Denies any acute arthritis involving any joints Neurologic: moves all extremities; no focal motor deficits Lymphatic: no cervical or axillary lymphadenopathy Results & Data Results & Data ([facility]) Vital Signs (Past 12 Hours) Vital Signs Temp Pulse Resp BP Pulse Ox 02/13/20 11:57 36.8 C 77 16 101/64 94 02/13/20 07:00 36.7 C 109 H 20 110/66 95 02/13/20 04:18 36.7 C 119 H 21 106/57 L 93 Medications Administered Current Inpatient Medications Acetaminophen (Tylenol) 650 mg PO Q4H PRN PRN Reason: Pain or Fever Stop: 03/06/20 03:28 Amiodarone HCl (Cordarone) 200 mg PO QAM [facility] Stop: 03/08/20 02:44 Last Admin: 02/13/20 08:26 Dose: 200 mg Documented by: Donepezil HCl (Aricept) 5 mg PO DAILY [facility] Stop: 03/06/20 08:59 Last Admin: 02/13/20 08:26 Dose: 5 mg Documented by: Enalapril Maleate (Vasotec) 20 mg PO BID [facility] Stop: 03/06/20 08:59 Last Admin: 02/13/20 08:26 Dose: 20 mg Documented by: Finasteride (Proscar) 5 mg PO QAM [facility] Stop: 03/06/20 08:59 Last Admin: 02/13/20 08:26 Dose: 5 mg Documented by: Ciprofloxacin Lactate (Cipro / D5w) 200 mg in 100 mls @ 100 mls/hr IV Q12H [facility] Stop: 02/22/20 12:59 Last Infusion: 02/13/20 02:29 Dose: Infused Documented by: Metronidazole (Flagyl) 500 mg in 100 mls @ 100 mls/hr IV Q8H [facility] Stop: 02/22/20 11:59 Last Admin: 02/13/20 11:09 Dose: 100 mls/hr Documented by: Ioversol (Optiray 320 100ml) 94 ml IV ONCE PRN PRN Reason: Interaction Checking Stop: 02/16/20 13:41 Last Admin: 02/12/20 13:43 Dose: 94 ml Documented by: Metoprolol Tartrate (Lopressor) 50 mg PO BID [facility] Stop: 03/11/20 04:14 Last Admin: 02/13/20 08:26 Dose: 50 mg Documented by: Multivitamins/Minerals (Multivitamin W/ Minerals Tab) 1 tab PO QAM [facility] Stop: 03/06/20 08:59 Last Admin: 02/13/20 08:26 Dose: 1 tab Documented by: Nitroglycerin (Nitrostat) 0.4 mg SL UD PRN PRN Reason: Chest Pain Stop: 03/06/20 03:28 Olanzapine (Zyprexa) 2.5 mg IM Q4H PRN PRN Reason: Anxiety/Agitation Stop: 03/09/20 00:38 Ondansetron HCl (Zofran) 4 mg IV Q6H PRN PRN Reason: Nausea Stop: 03/06/20 03:28 Pantoprazole Sodium (Protonix) 40 mg PO BID [facility] Stop: 03/12/20 20:59 Last Admin: 02/13/20 08:26 Dose: 40 mg Documented by: [facility]) [facility] Stop: 03/06/20 08:59 Last Admin: 02/13/20 08:26 Dose: 20 mg Documented by: Tamsulosin HCl (Flomax) 0.4 mg PO [facility] Stop: 03/06/20 20:59 Last Admin: 02/12/20 19:45 Dose: 0.4 mg Documented by:
--- NOTE | 2020-02-13 15:02 | Electrocardiogram Report ---
Test Reason : Blood Pressure : / mmHG Vent. Rate : 106 BPM Atrial Rate : 119 BPM P-R Int : 000 ms QRS Dur : 144 ms QT Int : 412 ms P-R-T Axes : 000 -36 -06 degrees QTc Int : 547 ms Atrial fibrillation with rapid ventricular response with premature ventricular or aberrantly conducte d complexes Left axis deviation Right bundle branch block Abnormal ECG When compared with ECG of 05-FEB-2020 08:34, No significant change was found Confirmed by Mark Glez ([id number]) on 02/13/2020 3:01:46 PM Referred By: REFERRED SELF Confirmed By:Mark Glez
--- NOTE | 2020-02-13 19:04 | Anesthesiology Progress Note ---
Date of Service February 13, 2020 Anesthesia Post Procedure Vital Signs Vital Signs: Temp Pulse Pulse Resp BP BP Pulse Ox 02/13/20 16:00 66 02/13/20 15:28 36.7 C 79 19 114/72 94 02/13/20 11:57 36.8 C 77 16 101/64 94 02/13/20 07:00 36.7 C 109 H 20 110/66 95 02/13/20 04:18 36.7 C 119 H 21 106/57 L 93 02/12/20 23:02 36.9 C 103 H 18 117/72 108 H 02/12/20 19:48 36.6 C 101 H 17 91/60 L 95 Transfer of Care Handoff Completed per policy Notes Mental Status: alert / awake / arousable and participated in evaluation Patient Amnestic to Procedure: Yes Nausea / Vomiting: adequately controlled Pain: adequately controlled Airway Patency, RR, SpO2: stable & adequate BP & HR: stable & adequate Hydration State: stable & adequate Anesthetic Complications: no major complications apparent
[2020-02-13] MEDS: TAMSULOSIN HCL 0.4 MG CAP PO SCH (19:49)
[2020-02-14] MEDS: CIPROFLOXACIN / D5W 200 MG/100 ML BAG IV SCH ×2 (01:33→12:02)
[2020-02-14] MEDS: metroNIDAZOLE 500 MG/100 ML BAG IV SCH ×2 (04:15→11:30)
[2020-02-14 08:33] LABS: Basophils # (auto) 0.02 K/uL (0-0.2); Basophils % (auto) 0.4 %; Eosinophils # (auto) 0.05 K/uL (0-0.5); Eosinophils % (auto) 1.1 %; Hematocrit (blood only) 28.4 % (42-52); Hemoglobin 9.4 g/dL (14.0-18.0); Lymphocytes # (auto) 0.65 K/uL (1.2-3.4); Lymphocytes % (auto) 14.1 %; Mean Corpuscular Hemoglobin 33.7 pg (25-34); Mean Corpuscular Hgb Conc 33.1 g/dL (32-36); Mean Corpuscular Volume 101.8 fL (80-100); Mean Platelet Volume 9.7 fL (7.4-10.4); Monocytes # (auto) 1.14 K/uL (0.11-0.59); Monocytes % (auto) 24.7 %; Neutrophils # (auto) 2.75 K/uL (1.4-6.5); Neutrophils % (auto) 59.7 %; Platelet Count 223 K/uL (130-400); RDW Coefficient of Variation 15.6 % (11.5-14.5); RDW Standard Deviation 57.6 fL (36.4-46.3); Red Blood Count 2.79 M/uL (4.7-6.1); White Blood Count 4.61 K/uL (4.8-10.8)
[2020-02-14] MEDS: CEROVITE ADV FORMULA TAB PO SCH (08:38)
[2020-02-14] MEDS: SIMVASTATIN 20 MG TAB PO SCH (08:38)
[2020-02-14] MEDS: ENALAPRIL MALEATE 10 MG TAB PO SCH (08:38)
[2020-02-14] MEDS: PANTOprazole 40 MG TAB PO SCH (08:38)
[2020-02-14] MEDS: DONEPEZIL HCL 5 MG TAB PO SCH (08:38)
[2020-02-14] MEDS: FINASTERIDE 5 MG TAB PO SCH (08:38)
[2020-02-14] MEDS: AMIODARONE 200 MG TAB PO SCH (08:38)
[2020-02-14] MEDS: METOPROLOL TARTRATE 50 MG TAB PO SCH (08:38)
[2020-02-14 09:05] LABS: BUN Creatinine Ratio 14.1 (10-20); Creatinine Clr Calc Pharmacy 86.6 ml/min; Est GFR (African American) 89.8; Est GFR (Non-African American) 77.4; Potassium 3.7 mmol/L (3.5-5.1)
--- NOTE | 2020-02-14 10:56 | Cardiology Progress Note ---
Date of Service February 14, 2020 Assessment & Plan (1) Chronic diastolic heart failure: (2) Acute GI bleeding: (3) Elevated INR: (4) Dementia: (5) PAF (paroxysmal atrial fibrillation): I believe he would be appropriate not to restart this patient on anticoagulation. When appropriate I would only restart his aspirin. His risk versus benefit at this point favors not restarting his warfarin after discharge. Otherwise he is clinically stable and from a cardiology standpoint I believe he may be discharged home. Subjective The patient's endoscopy results appreciated. He is resting comfortably and has no new complaints. Review of Systems Review of Systems: All systems reviewed & are unremarkable except as noted in HPI & below Nothing additional to add. Physical Exam Physical Exam: General: no acute distress and stated age Head: normocephalic, no masses, lesions, tenderness or abnormalities Eyes: conjunctiva are pink and non-injected, sclera clear Neck: supple, no adenopathy, no bruits, normal jugular venous pulse, no hepatojugular reflux Chest: normal shape and normal respiratory effort Lungs: clear to auscultation and percussion Cardiac Exam: - irregular rate & rhythm, no murmurs gallops or rubs - normal S1, normal S2 Pulses: 2(+) throughout Abdomen: abdomen soft, non-tender, no abnormal masses and no hepatosplenomegaly Musculoskeletal: no gait disturbance, no joint inflammation, no deforming arthritis Extremities: no edema and no cyanosis Neuro: grossly normal exam Results & Data Vital Signs (Past 12 Hours) Vital Signs Temp Pulse Resp BP BP Pulse Ox 02/14/20 07:52 36.7 C 86 20 114/58 L 97 02/14/20 04:04 37.3 C 68 22 118/72 94 02/13/20 23:27 37.3 C 64 18 96/60 L 93 Laboratory Results Laboratory Results - last 24 hr 02/14/20 02/14/20 08:12 08:12 WBC 4.61 L RBC 2.79 L Hgb 9.4 L Hct 28.4 L MCV 101.8 H MCH 33.7 MCHC 33.1 RDW Std Deviation 57.6 H RDW Coeff of Anisa 15.6 H Plt Count 223 MPV 9.7 Immature Gran % (Auto) 0.0 Neut % (Auto) 59.7 Lymph % (Auto) 14.1 Norman % (Auto) 24.7 Eos % (Auto) 1.1 Baso % (Auto) 0.4 Immature Gran # (Auto) 0.00 Neut # (Auto) 2.75 Lymph # (Auto) 0.65 L Norman # (Auto) 1.14 H Eos # (Auto) 0.05 Baso # (Auto) 0.02 Sodium 141 Potassium 3.7 Chloride 109 H Carbon Dioxide 28 Anion Gap 4.0 BUN 13 Creatinine 0.95 Est Cr Clr Drug Dosing 86.6 Est GFR ( Amer) 89.8 Est GFR (Non-Af Amer) 77.4 BUN/Creatinine Ratio 14.1 Glucose 86 Calcium 8.0 L Medications Administered Current Inpatient Medications Acetaminophen (Tylenol) 650 mg PO Q4H PRN PRN Reason: Pain or Fever Stop: 03/06/20 03:28 Amiodarone HCl (Cordarone) 200 mg PO QAM [facility] Stop: 03/08/20 02:44 Last Admin: 02/14/20 08:38 Dose: 200 mg Documented by: Donepezil HCl (Aricept) 5 mg PO DAILY [facility] Stop: 03/06/20 08:59 Last Admin: 02/14/20 08:38 Dose: 5 mg Documented by: Enalapril Maleate (Vasotec) 20 mg PO BID [facility] Stop: 03/06/20 08:59 Last Admin: 02/14/20 08:38 Dose: 20 mg Documented by: Finasteride (Proscar) 5 mg PO QAM [facility] Stop: 03/06/20 08:59 Last Admin: 02/14/20 08:38 Dose: 5 mg Documented by: Ciprofloxacin Lactate (Cipro / D5w) 200 mg in 100 mls @ 100 mls/hr IV Q12H [facility] Stop: 02/22/20 12:59 Last Infusion: 02/14/20 03:00 Dose: Infused Documented by: Metronidazole (Flagyl) 500 mg in 100 mls @ 100 mls/hr IV Q8H [facility] Stop: 02/22/20 11:59 Last Infusion: 02/14/20 06:11 Dose: Infused Documented by: Ioversol (Optiray 320 100ml) 94 ml IV ONCE PRN PRN Reason: Interaction Checking Stop: 02/16/20 13:41 Last Admin: 02/12/20 13:43 Dose: 94 ml Documented by: Metoprolol Tartrate (Lopressor) 50 mg PO BID [facility] Stop: 03/11/20 04:14 Last Admin: 02/14/20 08:38 Dose: 50 mg Documented by: Multivitamins/Minerals (Multivitamin W/ Minerals Tab) 1 tab PO QAM [facility] Stop: 03/06/20 08:59 Last Admin: 02/14/20 08:38 Dose: 1 tab Documented by: Nitroglycerin (Nitrostat) 0.4 mg SL UD PRN PRN Reason: Chest Pain Stop: 03/06/20 03:28 Olanzapine (Zyprexa) 2.5 mg IM Q4H PRN PRN Reason: Anxiety/Agitation Stop: 03/09/20 00:38 Ondansetron HCl (Zofran) 4 mg IV Q6H PRN PRN Reason: Nausea Stop: 03/06/20 03:28 Pantoprazole Sodium (Protonix) 40 mg PO BID [facility] Stop: 03/12/20 20:59 Last Admin: 02/14/20 08:38 Dose: 40 mg Documented by: Simvastatin (Zocor) 20 mg PO QAM [facility] Stop: 03/06/20 08:59 Last Admin: 02/14/20 08:38 Dose: 20 mg Documented by: Tamsulosin HCl (Flomax) 0.4 mg PO HS [facility] Stop: 03/06/20 20:59 Last Admin: 02/13/20 19:49 Dose: 0.4 mg Documented by:
--- NOTE | 2020-02-14 10:59 | Hospitalist Progress Note ---
Date of Service February 14, 2020 Assessment & Plan (1) Acute GI bleeding: Anemia Possible Warfarin related GI bleed due to Supratherapeutic INR on admission Hgb on admission 10.8, Hemoglobin dropped from 12.2 on He was started with PPI drip and was discontinued later on Transfused 1 unit PRBC on 02/08 Hemoglobin remains stable at 9.8 as of 02/08/2020 CT abd/pelvis showed findings are consistent with a nonspecific colitis of the left colon. This could be on an infectious, inflammatory, or ischemic basis S/P EGD showed normal esophagus. 2 gastric polyps were removed. Normal duodenal bulb and second portion of the duodenum. Follow up biopsied result Colonoscopy was done with poor bowel prep. One 8 mm polyp in the ascending colon that was removed. Segmental inflammation was found in the sigmoid and descending colon likely secondary to ischemic colitis. Non-bleeding internal hemorrhoids. Follow up biopsied result Continue to hold aspirin and coumadin for now Continue monitor H/H and transfused if hemoglobin less than 8 Has been on intravenous Cipro and Flagyl following suspected ischemic colitis Coumadin can resume in 2 days if GI bleeding resolves Medically stable without any acute symptoms Hemoglobin remains stable and electrolytes are okay We will discharge home this afternoon Repeat colonoscopy in 3 months to check for healing (2) Elevated INR: INR noted to be very high at 9.7 on admission Received intravenous vitamin K odmission INR 1.5 yesterday Since pt was having dark stools yesterday, so Vit K given Will give additional Vit K today GI deferred anticoagulant to cardio Continue to hold Coumadin due to GI bleed Monitor PT/INR as an outpatient Will start Coumadin from tomorrow and will notify the coagulation clinic for a checkup on Tuesday (3) Paroxysmal atrial flutter: Has been in/out Afib Heart rate controlled with metoprolol and amiodarone metoprolol increased to 50mg BID Warfarin and aspirin on hold due to GI bleed Will keep K above 4 and Mg 2 Denies any symptoms Case discussed with cardiology that recommended to hold off on restarting anticoagulation after colonoscopy Son was made aware by head filter press tender and agreed with the plan Consider to resume coumadin after 2 days (4) Dementia: Has dementia No acute delirium (5) HTN (hypertension): Blood pressure stable On Enalapril and metoprolol Continue monitor (6) Chronic diastolic heart failure: No acute exacerbation Hyperlipidemia on statin BPH on Flomax Lung Nodules CT showed 4 mm nodular density identified in the right lower lobe. This was not seen on 12/05/2017 Will need follow-up in 2-3 months time with a dedicated chest CT is recommended to document resolution. DVT prophylaxis SCDs due to rectal bleed Disposition We will advance diet and increase ambulation Will discharge this afternoon-discussed with the son Admission and Anticipated Discharge Date Admission Date: February 05, 2020 Subjective 02/13/2020 Patient was seen and examined in telemetry unit He was initially admitted with bright red blood per rectum and is now status post EGD and colonoscopy Denies any symptoms as of this morning Denies any abdominal pain, nausea and or vomiting and denies any bleeding per rectum. 02/14/2020 Patient was seen and examined in telemetry unit He remains stable and has been tolerating the liquid diet He has been ambulant in room Denies any more bloody bowel movement and denies any other symptoms Review of Systems Review of Systems: All systems reviewed and are unremarkable except as noted below Constitutional: + weakness Physical Exam Physical Exam: Lying in bed comfortably Constitutional: well developed and well nourished; no acute distress and not ill appearing Eyes: PERRL, conjunctivae normal, anicteric sclerae ENMT: external ear and nose normal, oropharynx normal Neck: trachea midline, no thyromegaly Respiratory: normal respiratory effort Auscultation: lungs clear to auscultation bilaterally Cardiovascular: Rate/Rhythm: + abnormal rate and + abnormal rhythm Heart Sounds: + murmur (2/6 ESM over precordium) Gastrointestinal (Abdomen): Inspection/Auscultation: abdomen normal to inspection and normal bowel sounds Percussion/Palpation: abdomen soft; abdomen nontender (Mildly tender lower left quadrant) Musculoskeletal: No acute arthritis in any joints Neurologic: moves all extremities; no focal motor deficits Lymphatic: no cervical or axillary lymphadenopathy Results & Data Results & Data ([facility]) Vital Signs (Past 12 Hours) Vital Signs Temp Pulse Resp BP BP Pulse Ox 02/14/20 07:52 36.7 C 86 20 114/58 L 97 02/14/20 04:04 37.3 C 68 22 118/72 94 02/13/20 23:27 37.3 C 64 18 96/60 L 93 Laboratory Results Short CBC 02/14/20 Range/Units 08:12 WBC 4.61 L (4.8-10.8) K/uL Hgb 9.4 L (14.0-18.0) g/dL Hct 28.4 L (42-52) % Plt Count 223 (130-400) K/uL [facility] 02/14/20 08:12 Sodium 141 Potassium 3.7 Chloride 109 H Carbon Dioxide 28 BUN 13 Creatinine 0.95 Glucose 86 Calcium 8.0 L Medications Administered Current Inpatient Medications Acetaminophen (Tylenol) 650 mg PO Q4H PRN PRN Reason: Pain or Fever Stop: 03/06/20 03:28 Amiodarone HCl (Cordarone) 200 mg PO QAM [facility] Stop: 03/08/20 02:44 Last Admin: 02/14/20 08:38 Dose: 200 mg Documented by: Donepezil HCl (Aricept) 5 mg PO DAILY [facility] Stop: 03/06/20 08:59 Last Admin: 02/14/20 08:38 Dose: 5 mg Documented by: Enalapril Maleate (Vasotec) 20 mg PO BID [facility] Stop: 03/06/20 08:59 Last Admin: 02/14/20 08:38 Dose: 20 mg Documented by: Finasteride (Proscar) 5 mg PO QAM [facility] Stop: 03/06/20 08:59 Last Admin: 02/14/20 08:38 Dose: 5 mg Documented by: Ciprofloxacin Lactate (Cipro / D5w) 200 mg in 100 mls @ 100 mls/hr IV Q12H [facility] Stop: 02/22/20 12:59 Last Infusion: 02/14/20 03:00 Dose: Infused Documented by: Metronidazole (Flagyl) 500 mg in 100 mls @ 100 mls/hr IV Q8H [facility] Stop: 02/22/20 11:59 Last Infusion: 02/14/20 06:11 Dose: Infused Documented by: Ioversol (Optiray 320 100ml) 94 ml IV ONCE PRN PRN Reason: Interaction Checking Stop: 02/16/20 13:41 Last Admin: 02/12/20 13:43 Dose: 94 ml Documented by: Metoprolol Tartrate (Lopressor) 50 mg PO BID [facility] Stop: 03/11/20 04:14 Last Admin: 02/14/20 08:38 Dose: 50 mg Documented by: Multivitamins/Minerals (Multivitamin W/ Minerals Tab) 1 tab PO QAM [facility] Stop: 03/06/20 08:59 Last Admin: 02/14/20 08:38 Dose: 1 tab Documented by: Nitroglycerin (Nitrostat) 0.4 mg SL UD PRN PRN Reason: Chest Pain Stop: 03/06/20 03:28 Olanzapine (Zyprexa) 2.5 mg IM Q4H PRN PRN Reason: Anxiety/Agitation Stop: 03/09/20 00:38 Ondansetron HCl (Zofran) 4 mg IV Q6H PRN PRN Reason: Nausea Stop: 03/06/20 03:28 Pantoprazole Sodium (Protonix) 40 mg PO BID [facility] Stop: 03/12/20 20:59 Last Admin: 02/14/20 08:38 Dose: 40 mg Documented by: Simvastatin (Zocor) 20 mg PO QAM [facility] Stop: 03/06/20 08:59 Last Admin: 02/14/20 08:38 Dose: 20 mg Documented by: Tamsulosin HCl (Flomax) 0.4 mg PO HS [facility] Stop: 03/06/20 20:59 Last Admin: 02/13/20 19:49 Dose: 0.4 mg Documented by:
--- NOTE | 2020-02-14 16:44 | Discharge Summary ---
Date of Service February 14, 2020 Admission HPI Per Admitting Provider DATE OF ADMISSION: 02/05/2020 CHIEF COMPLAINT: Rectal bleed. HISTORY OF PRESENT ILLNESS: This is a 74-year-old male with past medical history significant for paroxysmal atrial fibrillation on Coumadin, hyperlipidemia, hypertension, constipation, has some mild dementia, lives alone. hx of moderate aortic stenosis. Says son is no longer living with him, the son used to work in the hospital. 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 Comes here because of rectal bleed. The patient says he was sitting on the chair and he noticed blood coming from his rectum, significant amount so he came to the ER. Currently, it seems to be stopped, but his INR was elevated greater than 9.7. He was given IV vitamin K. His hemoglobin is 10.8, was 12.2 on 01/22/2020. Denies any abdominal pain, no nausea, no vomiting. Denies any chest pain, no shortness of breath, no cough, no fever, no chills, no headache, no blurred vision, no dizziness, no earache, no runny nose, no sore throat, no difficulty swallowing. Appetite is okay. Ambulating okay. Normal bladder movements. No hematuria. Has chronic swelling in the lower extremities. Walks without any support. Drives his own car. Currently resting comfortably and hemodynamically stable. Admission Exam Per Admitting Provider GENERAL: The patient is of moderate build, not in acute distress. VITAL SIGNS: Temperature 36.4, pulse 55, respiratory rate 18, blood pressure 106/67, oxygen 98% on room air. HEENT: Pupils equal, round, reactive to light. Extraocular muscles intact. NECK: No JVD, no neck masses. CARDIOVASCULAR: S1, S2 heard, regular rate and rhythm, no murmur, no gallop. RESPIRATORY SYSTEM: Normal AP diameter. No accessory muscle use. No wheezing, no crackles. ABDOMEN: Soft, bowel sounds present, nontender. No distention. CENTRAL NERVOUS SYSTEM: Cranial nerves II-XII grossly intact, nonfocal. EXTREMITIES: Bilateral lower extremity +2 edema present. Principal Diagnosis Rectal bleeding-stopped, ischemic colitis, paroxysmal atrial fibrillation on Coumadin, hypertension, dementia Discharge Exam Constitutional well developed and well nourished; no acute distress and not ill appearing Eyes PERRL, conjunctivae normal, anicteric sclerae ENMT external ear and nose normal, oropharynx normal Neck trachea midline, no thyromegaly Respiratory normal respiratory effort Auscultation: lungs clear to auscultation bilaterally Cardiovascular Rate/Rhythm: + abnormal rate and + abnormal rhythm Heart Sounds: + murmur (2/6 ESM over precordium) Gastrointestinal (Abdomen) Inspection/Auscultation: abdomen normal to inspection and normal bowel sounds Percussion/Palpation: abdomen soft; abdomen nontender (Mildly tender lower left quadrant) Neurologic moves all extremities; no focal motor deficits Lymphatic no cervical or axillary lymphadenopathy Discharge Data Allergies Allergy/AdvReac Type Severity Reaction Status Date / Time Penicillins Allergy Unknown Rash Verified 02/05/20 01:48 Consultations 02/05/20 01:50 ED Decision to Admit Stat 02/05/20 03:29 Consult Case Management - Discharge Planning Routine 02/05/20 08:00 Consult Gastroenterology Routine 02/08/20 09:41 Consult Cardiology Routine Procedures Performed Operation Date: 02/12/20 11:00 Actual Procedures p EGD Hemostasis - Leticia Jaimes MD p EGD Biopsy Cytology - Leticia Jaimes MD s Colonoscopy Polypectomy - Leticia Jaimes MD Ordered Studies 02/12/20 10:51 CT abd pelvis oral and IV con Routine Hospital Course (1) Acute GI bleeding: Anemia Possible Warfarin related GI bleed due to Supratherapeutic INR on admission Hgb on admission 10.8, Hemoglobin dropped from 12.2 on He was started with PPI drip and was discontinued later on Transfused 1 unit PRBC on 02/08 Hemoglobin remains stable at 9.8 as of 02/08/2020 CT abd/pelvis showed findings are consistent with a nonspecific colitis of the left colon. This could be on an infectious, inflammatory, or ischemic basis S/P EGD showed normal esophagus. 2 gastric polyps were removed. Normal duodenal bulb and second portion of the duodenum. Follow up biopsied result Colonoscopy was done with poor bowel prep. One 8 mm polyp in the ascending colon that was removed. Segmental inflammation was found in the sigmoid and descending colon likely secondary to ischemic colitis. Non-bleeding internal hemorrhoids. Follow up biopsied result Continue to hold aspirin and coumadin for now Continue monitor H/H and transfused if hemoglobin less than 8 Has been on intravenous Cipro and Flagyl following suspected ischemic colitis Coumadin can resume in 2 days if GI bleeding resolves Medically stable without any acute symptoms Hemoglobin remains stable and electrolytes are okay We will discharge home this afternoon Repeat colonoscopy in 3 months to check for healing (2) Elevated INR: INR noted to be very high at 9.7 on admission Received intravenous vitamin K odmission INR 1.5 yesterday Since pt was having dark stools yesterday, so Vit K given Will give additional Vit K today GI deferred anticoagulant to cardio Continue to hold Coumadin due to GI bleed Monitor PT/INR as an outpatient Will start Coumadin from tomorrow and will notify the coagulation clinic for a checkup on Tuesday (3) Paroxysmal atrial flutter: Has been in/out Afib Heart rate controlled with metoprolol and amiodarone metoprolol increased to 50mg BID Warfarin and aspirin on hold due to GI bleed Will keep K above 4 and Mg 2 Denies any symptoms Case discussed with cardiology that recommended to hold off on restarting anticoagulation after colonoscopy Son was made aware by signal integrity engineer and agreed with the plan Consider to resume coumadin after 2 days (4) Dementia: Has dementia No acute delirium (5) HTN (hypertension): Blood pressure stable On Enalapril and metoprolol Continue monitor (6) Chronic diastolic heart failure: No acute exacerbation Hyperlipidemia on statin BPH on Flomax Lung Nodules CT showed 4 mm nodular density identified in the right lower lobe. This was not seen on 12/05/2017 Will need follow-up in 2-3 months time with a dedicated chest CT is recommended to document resolution. DVT prophylaxis SCDs due to rectal bleed Disposition We will advance diet and increase ambulation Will discharge this afternoon-discussed with the son Total Time Total Time Spent Total Time Spent (In Minutes): 35 minutes Total Time Includes: Examination of the Patient, Discharge Planning, Medication Reconciliation and Communication With Other Providers Discharge Plan Discharge Items Patient Disposition: Home - Self-Care Reason For Visit: RECTAL BLEED Discharge Diagnosis: Rectal bleeding-stopped, ischemic colitis, paroxysmal atrial fibrillation on Coumadin, hypertension, dementia Condition on Discharge: Good Activity: Resume your previous activity Non-emergency contact: Primary Care Provider Call non-emergency contact if: you have any medication questions and your symptoms worsen Follow-up/Referrals: Jakob Ramos MD [Primary Care Provider] - 02/19/20 12:20 pm (02/13/2020 10:40 AM Coagulation clinic has been notified . ) Diet: Heart Healthy and Low Sodium (2gm) Addtl Attending Provider Instructions: Please take precaution to avoid falls Start Coumadin from tomorrow Pending Studies at Discharge: Yes Studies:: Endoscopy biopsy result Stand-Alone Forms: My [facility], Smoking Cessation Medications and DC Order Prescriptions: New pantoprazole 40 mg Tablet,Delayed Release (Dr/Ec) 40 mg PO BID Qty: 60 RF: 0 ciprofloxacin HCl [Cipro] 500 mg tablet 500 mg PO BID Qty: 20 RF: 0 metronidazole [Flagyl] 500 mg tablet 500 mg PO BID 10 Days Qty: 20 RF: 0 Lactinex 1 million cell tablet,chewable 1 tab PO BID Qty: 30 RF: 0 Continued donepezil 5 mg tablet 5 mg PO DAILY RF: 0 amiodarone 200 mg tablet 200 mg PO QAM RF: 0 enalapril maleate 20 mg tablet 20 mg PO BID RF: 0 aspirin 81 mg Tablet,Delayed Release (Dr/Ec) 81 mg PO QAM RF: 0 tamsulosin 0.4 mg capsule 0.4 mg PO HS RF: 0 simvastatin 20 mg tablet 20 mg PO QAM RF: 0 warfarin 2 mg tablet See Rx Instructions .ROUTE .COMPLEX RF: 0 finasteride 5 mg tablet 5 mg PO QAM RF: 0 metoprolol tartrate 25 mg tablet 37.5 mg PO BID RF: 0 Centrum Silver 0.4-300-250 mg-mcg-mcg Tablet 1 tab PO QAM RF: 0 Discontinued omeprazole 20 mg Tablet,Delayed Release (Dr/Ec) 20 mg PO QAM RF: 0 Discharge Orders: Discharge Order (Routine); Ordered 02/14/20 Ordered By: Rossi Costa Admission Data Admit Date/Time: 02/05/20 02:41 Attending Provider: Rossi Costa Admit Provider: Stoney Garcia Primary Care Provider: Jakob Ramos Other Providers: Stoney Garcia ; Fausto Conroy ; Rona Joseph ; Moriah Dixon ; Allegra Antoine ; Vishnu Gaitan ; Haylee Mullins ; Liss Villalobos ; Lucía Barbour ; Azar Garcia ; Tucker Kendall ; Aria Solomon ; Laura Francisco ; Lucretia Winslow ; Kelsie Dillon ; Leticia Jaimes ; Rossi Costa ; Eric Cifuentes ; Fritz Acevedo Other Interventions: Discharge Summary Assessment (RN) Last Done: 02/14/20 11:46 DC Date/Time DO NOT enter until pt leaves facility: 02/14/20 13:32
--- NOTE | 2020-02-19 11:46 | Coding Query ---
ANEMIA To promote full compliance with coding requirements relating to patient care, physician participation is requested in all cases of block hacker uncertainty. Please assist us with the question(s) below: Coding Question(s): The record reflects the following clinical findings: Anemia documented in 02/08 progress note treated with 1 unit PRBC. Please specify the known or suspected type by placing an "X" within the parenthesis (x). If other, please document type. Examples are: ( ) Acute blood loss anemia ( ) Acute Postoperative blood loss anemia ( ) Acute postoperative anemia due to dilutional fluids ( ) Chronic blood loss anemia ( ) Anemia of chronic disease ( ) Aplastic anemia ( ) Anemia due to renal disease ( ) Anemia in neoplastic disease ( ) Iron deficient anemia ( x) Anemia, unspecified or other ( ) Other: (please specify) ( ) Unable to determine Thank you Elaine ROE
== END 2020-02-14 13:32 | disposition home health service (06) | DRG 813 ==
LOC: ED 00:39 → 2S 02:41 → SUATTDRO 02:41 → 2S 02:57